=== PATIENT | female | born 1945 | race Two or more races ===

== ENCOUNTER 2020-10-12 13:27 | Outpatient (REF) | payer MEDICARE, SELFPAY ==
[2020-10-12 14:34] LABS: Alanine Aminotransferase 16 U/L (0-31); Albumin Level 4.4 g/dL (3.5-5.0); Alkaline Phosphatase 89 U/L (39-117); Anion Gap 14 (12-20); Aspartate Amino Transferase 15 U/L (5-31); Blood Urea Nitrogen 27 mg/dL (9-16); Calcium 9.3 mg/dL (8.4-10.2); Carbon Dioxide 23 mmol/L (22-29); Chloride 106 mmol/L (96-108); Cholesterol 172 mg/dL; Estimated Glomerular Filt Rate 19; Glucose Fasting 95 mg/dL (60-99); HDL Cholesterol 51 mg/dL; LDL Cholesterol Calculated 92 mg/dl; Potassium 5.4 mmol/L (3.3-5.1); Sodium 138 mmol/L (135-145); Total Protein 7.1 g/dL (6.5-8.0); Triglycerides 146 mg/dL
[2020-10-12 14:43] LABS: Bilirubin Total 0.2 mg/dL (0.0-1.0)
[2020-10-12 19:40] LABS: Folate 12.8 ng/mL (> or = 4.0); Vitamin B12 191 pg/mL (200-900)
[2020-10-16 13:05] LABS: Vitamin D 25-OH, D2 78 ng/mL; Vitamin D 25-OH, D3 5 ng/mL; Vitamin D 25-OH, Total 83 ng/mL (30-100)
== END 2020-10-12 13:28 | disposition home or self-care (01) ==
LOC: HO.LAB 13:27
PROVIDERS: PCP Internal Medicine; Visit Provider Internal Medicine
DX: R53.82 Chronic fatigue, unspecified (principal); I10 Essential (primary) hypertension; E78.5 Hyperlipidemia, unspecified; E03.9 Hypothyroidism, unspecified; E55.9 Vitamin D deficiency, unspecified
CPT/HCPCS: 36415; 80053; 80061; 82306; 82607; 82746; 84443

== ENCOUNTER 2020-12-10 15:14 | Outpatient (REF) | payer MEDICARE, SELFPAY ==
--- NOTE | ~2020-12-10 | US_ITS ---
EXAMINATION: US RETROPERITONEAL LIMITED (RENAL ONLY) CLINICAL INFORMATION: Chronic kidney disease. COMPARISON: Ultrasound abdomen complete dated 05/14/2015 and 06/11/2014. TECHNIQUE: Real-time imaging of the kidneys. FINDINGS: RIGHT KIDNEY: 9.1 x 4.5 x 4.1 cm (SAG x AP x TRV). The kidney is normal in size, contour, and echogenicity. Renal cortical thickness is normal. No calculi or focal parenchymal lesions. No hydronephrosis. LEFT KIDNEY: 9.3 x 4.5 x 4.2 cm (SAG x AP x TRV). The kidney is normal in size, contour, and echogenicity. Renal cortical thickness is normal. No renal calculi or hydronephrosis. There is an anechoic cyst in the upper pole measuring 1.9 x 1.6 x 1.5 cm. US/US renal BI IMPRESSION: Unremarkable right kidney. Simple cyst upper pole left kidney.
== END 2020-12-10 15:15 | disposition home or self-care (01) ==
LOC: HO.XRAY 15:14
PROVIDERS: Visit Provider Internal Medicine Hypertension Specialist
DX: N17.9 Acute kidney failure, unspecified (principal)
CPT/HCPCS: 76775

== ENCOUNTER 2022-07-05 15:23 | Emergency (ER) | payer OTHER, SELFPAY ==
[2022-07-05] VITALS (7 sets, daily range): BP systolic 129–167; BP diastolic 58–86; PULSE 50–69; RESP 17; TEMP 36.7–37.1; O2SAT 97–100; BMI 28.9
--- NOTE | ~2022-07-05 | US_ITS ---
EXAMINATION: US PELVIS CLINICAL INFORMATION: vag bleeding, post menopausal, r/o malignancy COMPARISON: None available. TECHNIQUE: Ultrasound of the pelvis is performed using both transabdominal and transvaginal transducers along with Doppler. Transvaginal imaging is performed due to inadequate visualization transabdominally. FINDINGS: Uterus: The uterus is anteverted and measures 5.5 x 2.5 x 2.7 cm. The double wall endometrial thickness is 5 mm with a small volume of endometrial fluid.. The uterus is smooth in contour and has normal myometrial echogenicity. No visible fibroid. Adnexa: Ovaries are not identified sonographically. US/US pelvic and transvaginal IMPRESSION: Normal endometrial thickness (5 mm) with trace associated endometrial fluid. No focal lesions are identified on these images. Ovaries are not identified sonographically.
--- NOTE | 2022-07-05 15:51 | ED.GENADULT ---
HPI - General Adult General Stated complaint: pain in hip, no injury Related Data Previous Rx's Medication Instructions Recorded lactulose 10 gram/15 mL oral 10 g (15 mL) PO BEDTIME PRN 06/15/20 solution constipation 30 days #450 mL lidocaine 4 % topical patch 3 patch topical DAILY PRN pain #30 07/06/21 (Aspercreme (lidocaine)) ea melatonin 10 mg capsule 10 mg PO BEDTIME PRN sleep 90 days 12/11/21 #90 caps estradiol 0.01% (0.1 mg/gram) 1 g vaginal QWEEK 90 days #42.5 03/08/22 vaginal cream (Estrace) grams folic acid 1 mg tablet 1 mg PO DAILY 90 days #90 tabs 03/22/22 tobramycin 0.3 % eye drops 1 drp ophthalmic (eye) Q4H 5 days 04/10/22 #5 mL omeprazole 40 mg capsule,delayed 40 mg PO DAILY 90 days #90 caps 04/17/22 release disposable gloves (Biobrane Gloves #100 ea 06/01/22 Medium) incontinence pad, liner, disp #60 ea 06/01/22 (Affirm Pads) levothyroxine 88 mcg tablet 88 mcg PO DAILY #90 tabs 06/01/22 underpads 30 X 36 (Certainty #40 ea 06/01/22 Underpads) wipes #120 ea 06/01/22 atorvastatin 40 mg tablet 40 mg PO BEDTIME 90 days #90 tabs 06/14/22 cholecalciferol (vitamin D3) 50 50 mcg PO DAILY 90 days #90 caps 06/14/22 mcg (2,000 unit) capsule cyanocobalamin (vitamin B-12) 1,000 mcg PO DAILY 90 days #90 tabs 06/14/22 1,000 mcg tablet lisinopril 40 mg tablet 40 mg PO DAILY 90 days #90 tabs 06/14/22 quetiapine 200 mg tablet (Seroquel) 200 mg PO TID 90 days #270 tabs 06/14/22 tramadol 50 mg tablet 50 mg PO BID PRN pain 30 days #60 06/14/22 tabs aspirin 81 mg tablet,delayed 81 mg PO DAILY cad prophylaxis 90 06/29/22 release days #90 tabs escitalopram oxalate 10 mg tablet 10 mg PO DAILY 90 days #90 tabs 07/05/22 Allergies Allergy/AdvReac Type Severity Reaction Status Date / Time No Known Allergies Allergy Verified 03/08/22 17:01 COUNTS INCLUDE 234 BEDS AT THE [facility] Past Medical History Medical History VERA (acute kidney injury) B12 deficiency Chronic fatigue Dyslipidemia CLAYTON (generalized anxiety disorder) GERD (gastroesophageal reflux disease) Hypovitaminosis D Insomnia due to mental condition Long-term use of aspirin therapy Moderate recurrent major depression Osteopenia Urge urinary incontinence Surgical History History of appendectomy History of tubal ligation Family History Family History Father CVD (cardiovascular disease) Mother Chronic mental illness Brother Lung cancer Family/Other FH: mental illness Social History Social History Housing: House Alcohol intake: never Patient Tobacco Use Status: Current everyday Tobacco user Tobacco use type: Cigarette Cigarettes Per Day: 5 e-Cigarette/Vaping Use: Never Used Second Hand Smoke Exposure: No service: No Current occupational status: disabled Cognitive needs: Yes Hearing needs: No Vision needs: Yes Course Course Course Narrative: This is a rapid medical exam. Deferred additional HPI, ROS, PE to primary provider. 77 yo female with history of CKD, HTN, GERD, HLD, depression, anxiety here with vaginal bleeding, abdominal bloating/distention, feeling fatigued, short of breath with movement. NO AC therapy use. On ASA only. Will check labs, EKG, orthos. VSS Discharge Plan Discharge Prescriptions: No Action melatonin 10 mg capsule 10 mg PO BEDTIME PRN (Reason: sleep) 90 Days Qty: 90 1RF folic acid 1 mg tablet 1 mg PO DAILY 90 Days Qty: 90 1RF tobramycin 0.3 % drops 1 drp ophthalmic (eye) Q4H 5 Days Qty: 5 0RF omeprazole 40 mg capsule,delayed release(DR/EC) 40 mg PO DAILY 90 Days Qty: 90 0RF levothyroxine 88 mcg tablet 88 mcg PO DAILY Qty: 90 0RF (DME) wipes See Rx Instructions .Route .MEDSUPPLY Qty: 120 11RF Rx Instructions: As directed (DME) underpads [Certainty Underpads] 30 X 36 pad See Rx Instructions .ROUTE .MEDSUPPLY Qty: 40 11RF Rx Instructions: As directed (DME) Affirm Pads Pad See Rx Instructions .ROUTE .MEDSUPPLY Qty: 60 11RF Rx Instructions: As directed (DME) disposable gloves [Biobrane Gloves Medium] Misc See Rx Instructions .ROUTE .MEDSUPPLY Qty: 100 11RF Rx Instructions: As directed atorvastatin 40 mg tablet 40 mg PO BEDTIME 90 Days Qty: 90 0RF cholecalciferol (vitamin D3) 50 mcg (2,000 unit) capsule 50 mcg PO DAILY 90 Days Qty: 90 1RF cyanocobalamin (vitamin B-12) 1,000 mcg tablet 1,000 mcg PO DAILY 90 Days Qty: 90 1RF lisinopril 40 mg tablet 40 mg PO DAILY 90 Days Qty: 90 3RF quetiapine [Seroquel] 200 mg tablet 200 mg PO TID 90 Days Qty: 270 3RF tramadol 50 mg tablet 50 mg PO BID PRN (Reason: pain) 30 Days Qty: 60 0RF aspirin 81 mg tablet,delayed release (DR/EC) 81 mg PO DAILY 90 Days Qty: 90 3RF escitalopram oxalate 10 mg tablet 10 mg PO DAILY 90 Days Qty: 90 0RF lactulose 10 gram/15 mL solution 10 g PO BEDTIME PRN (Reason: constipation) 30 Days Qty: 450 6RF estradiol [Estrace] 0.01 % (0.1 mg/gram) cream 1 g vaginal QWEEK 90 Days Qty: 42.5 1RF lidocaine [Aspercreme (lidocaine)] 4 % adhesive patch,medicated 3 patch topical DAILY PRN (Reason: pain) Qty: 30 3RF
--- NOTE | 2022-07-05 15:54 | ECG_ITS ---
Test Reason : weakness Blood Pressure : / mmHG Vent. Rate : 052 BPM Atrial Rate : 052 BPM P-R Int : 204 ms QRS Dur : 092 ms QT Int : 432 ms P-R-T Axes : 042 031 038 degrees QTc Int : 401 ms Sinus bradycardia Otherwise normal ECG When compared with ECG of 10-OCT-2011 14:49, No significant change was found Referred By: Mery Quezdaa Electronically Signed By:ALANA CONNOLLY
[2022-07-05 16:16] LABS: MANUAL DIFF FLAG NO
[2022-07-05 16:20] LABS: Basophils Absolute Auto 0.1 X10*3/uL (0.0-0.2); Eosinophils Absolute Auto 0.2 X10*3/uL (0.0-0.4); Eosinophils Percent Auto 3.4 % (0-4); Hematocrit 32.3 % (37.0-47.0); Hemoglobin 10.2 g/dl (12.0-16.0); Imm Gran Abs Auto 0.03 X10*3/uL (0.00-0.03); Imm Gran Pct Auto 0.5 % (0.0-0.4); Lymphocytes Absolute Auto 1.8 X10*3/uL (1.2-4.9); Lymphocytes Percent Auto 30.2 % (20-40); Mean Corpuscular HGB Conc 31.6 g/dl (31.0-35.0); Mean Corpuscular Hemoglobin 29.8 pg (27.0-33.0); Mean Corpuscular Volume 94.4 fL (80.0-98.0); Mean Platelet Volume 9.4 fL (9.4-12.3); Monocytes Absolute Auto 0.4 X10*3/uL (0.1-1.2); Monocytes Percent Auto 7.2 % (2-11); Neutrophils Absolute Auto 3.3 x10*3/uL (2.0-8.3); Neutrophils Percent Auto 57.7 % (45-73); Platelet Count 235 X10*3/uL (160-400); Red Blood Count 3.42 X10*6/uL (4.20-5.50); Red Cell Distribution Width 14.4 % (11.0-16.0); White Blood Count 5.8 X10*3/uL (4.8-10.8)
[2022-07-05 16:26] LABS: INTERNATIONAL NORM RATIO 0.9 (0.9-1.1); Prothrombin Time 10.5 SEC (10.0-13.1)
[2022-07-05 16:42] LABS: Alanine Aminotransferase 21 U/L (0-31); Albumin Level 4.3 g/dL (3.5-5.0); Alkaline Phosphatase 80 U/L (39-117); Anion Gap 13 (12-20); Aspartate Amino Transferase 25 U/L (5-31); Bilirubin Direct 0.1 mg/dL (0.0-0.5); Bilirubin Total 0.4 mg/dL (0.0-1.0); Blood Urea Nitrogen 16 mg/dL (9-16); Calcium 9.2 mg/dL (8.4-10.2); Carbon Dioxide 23 mmol/L (22-29); Chloride 109 mmol/L (96-108); Creatinine Clr Calc Pharmacy 29.3; Estimated Glomerular Filt Rate 34; Glucose Random 116 mg/dL (60-115); Potassium 5.2 mmol/L (3.3-5.1); Sodium 140 mmol/L (135-145); Total Protein 6.9 g/dL (6.5-8.0)
--- NOTE | 2022-07-05 19:35 | ED_ITS ---
HPI - Female Genitourinary General Chief complaint: Vaginal Bleeding Stated complaint: pain in hip, no injury Time Seen by Provider: 07/05/22 17:56 History of Present Illness HPI Narrative: Patient is a 77-year-old female present today with having episodes of vaginal bleeding. Can notice 2 episodes of bleeding. Both times causing just spotting. Patient denies any focal weakness. Has been noticing black stool as well. However patient has been taking for her stomach. She is not taking any NSAIDs. She is not on blood thinners. There is no abdominal pain. No fever no chills. No chest pain or shortness of breath. Patient is not an alcohol drinker. Related Data Previous Rx's Medication Instructions Recorded lactulose 10 gram/15 mL oral 10 g (15 mL) PO BEDTIME PRN 06/15/20 solution constipation 30 days #450 mL lidocaine 4 % topical patch 3 patch topical DAILY PRN pain #30 07/06/21 (Aspercreme (lidocaine)) ea melatonin 10 mg capsule 10 mg PO BEDTIME PRN sleep 90 days 12/11/21 #90 caps estradiol 0.01% (0.1 mg/gram) 1 g vaginal QWEEK 90 days #42.5 03/08/22 vaginal cream (Estrace) grams folic acid 1 mg tablet 1 mg PO DAILY 90 days #90 tabs 03/22/22 tobramycin 0.3 % eye drops 1 drp ophthalmic (eye) Q4H 5 days 04/10/22 #5 mL omeprazole 40 mg capsule,delayed 40 mg PO DAILY 90 days #90 caps 04/17/22 release disposable gloves (Biobrane Gloves #100 ea 06/01/22 Medium) incontinence pad, liner, disp #60 ea 06/01/22 (Affirm Pads) levothyroxine 88 mcg tablet 88 mcg PO DAILY #90 tabs 06/01/22 underpads 30 X 36 (Certainty #40 ea 06/01/22 Underpads) wipes #120 ea 06/01/22 atorvastatin 40 mg tablet 40 mg PO BEDTIME 90 days #90 tabs 06/14/22 cholecalciferol (vitamin D3) 50 50 mcg PO DAILY 90 days #90 caps 06/14/22 mcg (2,000 unit) capsule cyanocobalamin (vitamin B-12) 1,000 mcg PO DAILY 90 days #90 tabs 06/14/22 1,000 mcg tablet lisinopril 40 mg tablet 40 mg PO DAILY 90 days #90 tabs 06/14/22 quetiapine 200 mg tablet (Seroquel) 200 mg PO TID 90 days #270 tabs 06/14/22 tramadol 50 mg tablet 50 mg PO BID PRN pain 30 days #60 06/14/22 tabs aspirin 81 mg tablet,delayed 81 mg PO DAILY cad prophylaxis 90 06/29/22 release days #90 tabs escitalopram oxalate 10 mg tablet 10 mg PO DAILY 90 days #90 tabs 07/05/22 Allergies Allergy/AdvReac Type Severity Reaction Status Date / Time No Known Allergies Allergy Verified 07/05/22 15:56 Review of Systems 2 Review of Systems: Positive vaginal bleeding Yes all other systems are reviewed and are negative PMFSH Past Medical History Attestation statement: The following information was validated with the patient. Medical History VERA (acute kidney injury) B12 deficiency Chronic fatigue Dyslipidemia CLAYTON (generalized anxiety disorder) GERD (gastroesophageal reflux disease) Hypovitaminosis D Insomnia due to mental condition Long-term use of aspirin therapy Moderate recurrent major depression Osteopenia Urge urinary incontinence Surgical History History of appendectomy History of tubal ligation Family History Family History Father CVD (cardiovascular disease) Mother Chronic mental illness Brother Lung cancer Family/Other FH: mental illness Social History Social History Housing: House Alcohol intake: never Patient Tobacco Use Status: Current everyday Tobacco user Tobacco use type: Cigarette Cigarettes Per Day: 5 e-Cigarette/Vaping Use: Never Used Second Hand Smoke Exposure: No Advance Directives: No Advance Directives Information Provided: Yes service: No Current occupational status: disabled Cognitive needs: Yes Hearing needs: No Vision needs: Yes Physical Exam Vital Signs: Vital Signs: Last Vital Signs Temp 98.7 F 07/05/22 18:58 Pulse 66 07/05/22 19:32 Resp 17 07/05/22 18:58 BP 134/80 07/05/22 19:32 Pulse Ox 97 07/05/22 18:58 O2 Del Method Room Air 07/05/22 18:58 BMI result Body Mass Index 28.9 Appearance: Alert. Oriented X3. No acute distress. Eyes: Pupils equal, round and reactive to light. ENT: Pharynx normal. Neck: Normal inspection. Neck supple. No lymph nodes noted. No crepitus CVS: Normal heart rate and rhythm. Pulses normal. Normal S1 and S2 Respiratory: No respiratory distress. Breath sounds normal. No Wheezing. No rales Abdomen: Soft and nontender. No rigidity. No distention. good BS x4 Skin: Skin warm and dry. Normal skin color. Normal skin turgor. Pelvic exam gross external exam showed no bleeding. Rectal exam done grossly brown stool heme negative. Extremities: No lower extremity edema. Neurovascular intact to all extremities. No Lacerations. No Rash Neuro: Oriented X 3. No motor deficit. No sensory deficit. Moving all extermities. No slurred speech Medical Decision Making Medical Decision Making MDM Narrative: Patient well-appearing. No acute distress. Only minimal spotting x2. There is no soaking pads. Patient's hemoglobin however dropped from 12 to 10. SHe is well appearing. Case discussed with Dr. Leonard Flores from OBGYN. Will closely follow on an outpatient basis. Patient has black stool most likely caused by Pepto-Bismol. She is in no distress. Patient's stool is heme-negative. It was brown on rectal exam. Unlikely to have GI bleed. Patient made aware the urgent need to follow-up. Risk of malignancy exists. She states understanding with the police [employer] program coordinator present. Differential Diagnosis Differential Diagnoses: The differential diagnosis associated with the presentation includes GI bleed, urinary tract infection, vaginal bleeding, malignancy Admission/Observation Consideration of admission/observation: Escalation of care including admission/observation considered Consult Healthcare Provider Management of the patient was discussed with: [facility] Lab Data 07/05/22 16:11 07/05/22 16:11 Labs: Lab Results 07/05/22 07/05/22 07/05/22 Range/Units 16:11 16:11 16:11 WBC 5.8 (4.8-10.8) X10*3/uL RBC 3.42 L (4.20-5.50) X10*6/uL Hgb 10.2 L (12.0-16.0) g/dl Hct 32.3 L (37.0-47.0) % MCV 94.4 (80.0-98.0) fL MCH 29.8 (27.0-33.0) pg MCHC 31.6 (31.0-35.0) g/dl RDW 14.4 (11.0-16.0) % Plt Count 235 (160-400) X10*3/uL MPV 9.4 (9.4-12.3) fL Immature Gran % (Auto) 0.5 H (0.0-0.4) % Neut % (Auto) 57.7 (45-73) % Lymph % (Auto) 30.2 (20-40) % Glades % (Auto) 7.2 (2-11) % Eos % (Auto) 3.4 (0-4) % Baso % (Auto) 1.0 (0-2) % Lymph # (Auto) 1.8 (1.2-4.9) X10*3/uL Glades # (Auto) 0.4 (0.1-1.2) X10*3/uL Eos # (Auto) 0.2 (0.0-0.4) X10*3/uL Baso # (Auto) 0.1 (0.0-0.2) X10*3/uL Abs Immat Gran (auto) 0.03 (0.00-0.03) X10*3/uL Absolute Neuts (auto) 3.3 (2.0-8.3) x10*3/uL Absolute Nucleated RBC 0.000 (0.0-0.012) X10*3/uL Nucleated RBC % (auto) 0.0 (0.0-0.2) /100WBC PT 10.5 (10.0-13.1) SEC INR 0.9 (0.9-1.1) Sodium 140 (135-145) mmol/L Potassium 5.2 H (3.3-5.1) mmol/L Chloride 109 H (96-108) mmol/L Carbon Dioxide 23 (22-29) mmol/L Anion Gap 13 (12-20) BUN 16 (9-16) mg/dL Creatinine 1.51 H (0.5-1.4) mg/dL Estim Creat Clear Calc 29.3 Estimated GFR 34 Random Glucose 116 H (60-115) mg/dL Calcium 9.2 (8.4-10.2) mg/dL Total Bilirubin 0.4 (0.0-1.0) mg/dL Direct Bilirubin 0.1 (0.0-0.5) mg/dL AST 25 (5-31) U/L ALT 21 (0-31) U/L Alkaline Phosphatase 80 (39-117) U/L Total Protein 6.9 (6.5-8.0) g/dL Albumin 4.3 (3.5-5.0) g/dL Stool Occult Blood (NEGATIVE) 07/05/22 Range/Units 19:35 WBC (4.8-10.8) X10*3/uL RBC (4.20-5.50) X10*6/uL Hgb (12.0-16.0) g/dl Hct (37.0-47.0) % MCV (80.0-98.0) fL MCH (27.0-33.0) pg MCHC (31.0-35.0) g/dl RDW (11.0-16.0) % Plt Count (160-400) X10*3/uL MPV (9.4-12.3) fL Immature Gran % (Auto) (0.0-0.4) % Neut % (Auto) (45-73) % Lymph % (Auto) (20-40) % Glades % (Auto) (2-11) % Eos % (Auto) (0-4) % Baso % (Auto) (0-2) % Lymph # (Auto) (1.2-4.9) X10*3/uL Glades # (Auto) (0.1-1.2) X10*3/uL Eos # (Auto) (0.0-0.4) X10*3/uL Baso # (Auto) (0.0-0.2) X10*3/uL Abs Immat Gran (auto) (0.00-0.03) X10*3/uL Absolute Neuts (auto) (2.0-8.3) x10*3/uL Absolute Nucleated RBC (0.0-0.012) X10*3/uL Nucleated RBC % (auto) (0.0-0.2) /100WBC PT (10.0-13.1) SEC INR (0.9-1.1) Sodium (135-145) mmol/L Potassium (3.3-5.1) mmol/L Chloride (96-108) mmol/L Carbon Dioxide (22-29) mmol/L Anion Gap (12-20) BUN (9-16) mg/dL Creatinine (0.5-1.4) mg/dL Estim Creat Clear Calc Estimated GFR Random Glucose (60-115) mg/dL Calcium (8.4-10.2) mg/dL Total Bilirubin (0.0-1.0) mg/dL Direct Bilirubin (0.0-0.5) mg/dL AST (5-31) U/L ALT (0-31) U/L Alkaline Phosphatase (39-117) U/L Total Protein (6.5-8.0) g/dL Albumin (3.5-5.0) g/dL Stool Occult Blood NEGATIVE (NEGATIVE) Independent Interpretation I performed an independent interpretation of an: EKG Interpretation: Patient's EKG showed a sinus pattern heart rate is 50 GA QRS QT within normal limits there is no acute ST segment elevation noted. Discharge Plan Discharge Clinical Impression: Abnormal vaginal bleeding in postmenopausal patient, Vaginal bleeding Patient Disposition: Home, Self-Care Instructions: Endometrial Biopsy (DC) Prescriptions: No Action melatonin 10 mg capsule 10 mg PO BEDTIME PRN (Reason: sleep) 90 Days Qty: 90 1RF folic acid 1 mg tablet 1 mg PO DAILY 90 Days Qty: 90 1RF tobramycin 0.3 % drops 1 drp ophthalmic (eye) Q4H 5 Days Qty: 5 0RF omeprazole 40 mg capsule,delayed release(DR/EC) 40 mg PO DAILY 90 Days Qty: 90 0RF levothyroxine 88 mcg tablet 88 mcg PO DAILY Qty: 90 0RF (DME) wipes See Rx Instructions .Route .MEDSUPPLY Qty: 120 11RF Rx Instructions: As directed (DME) underpads [Certainty Underpads] 30 X 36 pad See Rx Instructions .ROUTE .MEDSUPPLY Qty: 40 11RF Rx Instructions: As directed (DME) Affirm Pads Pad See Rx Instructions .ROUTE .MEDSUPPLY Qty: 60 11RF Rx Instructions: As directed (DME) disposable gloves [Biobrane Gloves Medium] Misc See Rx Instructions .ROUTE .MEDSUPPLY Qty: 100 11RF Rx Instructions: As directed atorvastatin 40 mg tablet 40 mg PO BEDTIME 90 Days Qty: 90 0RF cholecalciferol (vitamin D3) 50 mcg (2,000 unit) capsule 50 mcg PO DAILY 90 Days Qty: 90 1RF cyanocobalamin (vitamin B-12) 1,000 mcg tablet 1,000 mcg PO DAILY 90 Days Qty: 90 1RF lisinopril 40 mg tablet 40 mg PO DAILY 90 Days Qty: 90 3RF quetiapine [Seroquel] 200 mg tablet 200 mg PO TID 90 Days Qty: 270 3RF tramadol 50 mg tablet 50 mg PO BID PRN (Reason: pain) 30 Days Qty: 60 0RF aspirin 81 mg tablet,delayed release (DR/EC) 81 mg PO DAILY 90 Days Qty: 90 3RF escitalopram oxalate 10 mg tablet 10 mg PO DAILY 90 Days Qty: 90 0RF lactulose 10 gram/15 mL solution 10 g PO BEDTIME PRN (Reason: constipation) 30 Days Qty: 450 6RF estradiol [Estrace] 0.01 % (0.1 mg/gram) cream 1 g vaginal QWEEK 90 Days Qty: 42.5 1RF lidocaine [Aspercreme (lidocaine)] 4 % adhesive patch,medicated 3 patch topical DAILY PRN (Reason: pain) Qty: 30 3RF Referrals: Balwinder Valle MD [Physician] - 07/07/22 Print Language: Albanian
[2022-07-05 19:44] LABS: OBS Int Ctl Valid YES; OBS1 NEGATIVE (NEGATIVE)
--- NOTE | 2022-07-05 19:44 | PC.NURSE ---
I took over care of the pt at 1900. Pt is A&Ox4, GCS 15, yakut speaking only. With MD at bedside, stool sample was obtained. Orthostatic vital signs were obtained. Pt started to get dressed and it was explained that they need to wait for results and discharge paperwork. When we went back to the room, pt and brother were gone. Registration confirmed that the pt eloped. I will attempt to call the pt with information regarding followup appointments. MD and Charge nurse aware.
--- NOTE | 2022-07-05 20:12 | P.CONOB_ITS ---
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 No other associated symptoms. cc:: CC: OB PMF Past Medical History Medical History VERA (acute kidney injury) B12 deficiency Chronic fatigue Dyslipidemia CLAYTON (generalized anxiety disorder) GERD (gastroesophageal reflux disease) Hypovitaminosis D Insomnia due to mental condition Long-term use of aspirin therapy Moderate recurrent major depression Osteopenia Urge urinary incontinence Family History Family History Father CVD (cardiovascular disease) Mother Chronic mental illness Brother Lung cancer Family/Other FH: mental illness Surgical History Surgical History History of appendectomy History of tubal ligation Social History Social History Housing: House Alcohol intake: never Patient Tobacco Use Status: Current everyday Tobacco user Tobacco use type: Cigarette Cigarettes Per Day: 5 e-Cigarette/Vaping Use: Never Used Second Hand Smoke Exposure: No Advance Directives: No Advance Directives Information Provided: Yes service: No Current occupational status: disabled Cognitive needs: Yes Hearing needs: No Vision needs: Yes Meds Allergies Allergy/AdvReac Type Severity Reaction Status Date / Time No Known Allergies Allergy Verified 07/05/22 15:56 [employer] SUPER[employer]OR Physical Exam Vitals Vital signs: Temp Pulse Resp BP Pulse Ox O2 Del Method 98.7 F 66 17 134/80 97 Room Air 07/05/22 18:58 07/05/22 19:32 07/05/22 18:58 07/05/22 19:32 07/05/22 18:58 07/05/22 18:58 BMI result Body Mass Index 28.9 Additional Comments: Reported by Dr. Grimaldo as the following: no evidence of active vaginal bleeding, abdomen soft nontender [employer]ION SUPER[employer]OR - Results Labs 07/05/22 16:11 07/05/22 16:11 Labs: Short CBC 07/05/22 Range/Units 16:11 WBC 5.8 (4.8-10.8) X10*3/uL Hgb 10.2 L (12.0-16.0) g/dl Hct 32.3 L (37.0-47.0) % Plt Count 235 (160-400) X10*3/uL BMP 07/05/22 16:11 Sodium 140 Potassium 5.2 H Chloride 109 H Carbon Dioxide 23 BUN 16 Creatinine 1.51 H Calcium 9.2 Liver Function 07/05/22 Range/Units 16:11 Total Bilirubin 0.4 (0.0-1.0) mg/dL Direct Bilirubin 0.1 (0.0-0.5) mg/dL AST 25 (5-31) U/L ALT 21 (0-31) U/L Alkaline Phosphatase 80 (39-117) U/L Albumin 4.3 (3.5-5.0) g/dL Imaging US - abdomen: Radiologist's impression: ITS Impressions Pelvic/Transvag US 07/05/22 18:05 IMPRESSION: Normal endometrial thickness (5 mm) with trace associated endometrial fluid. No focal lesions are identified on these images. Ovaries are not identified sonographically. Assessment and Plan (1) Post-menopausal bleeding: Status: Acute Plan Recommended to Dr. GRIMALDO the following: Differential diagnosis of postmenopausal bleeding include endometrial pathology including but not limited to endometrial hyperplasia and/or malignancy or polyps. Instructions to be given the patient to come back to emergency room in case of heavy vaginal bleeding and follow-up in the office within few days for evaluation endometrial biopsy to rule out endometrial pathology. Spent a total of 20 minutes reviewing the chart, communicating with the emergency room provider and documenting the medical record Time Spent With Patient Time: Total time managing care of this patient today ____ minutes.
== END 2022-07-05 20:21 | disposition home or self-care (01) ==
PROVIDERS: Nurse Practitioner Family; Emergency Provider Emergency Medicine Emergency Medical Services; PCP Internal Medicine
DX: N95.0 Postmenopausal bleeding (principal); R00.0 Tachycardia, unspecified; N93.8 Other specified abnormal uterine and vaginal bleeding; R10.2 Pelvic and perineal pain; Z79.899 Other long term (current) drug therapy
CPT/HCPCS: 36415; 76830; 76856; 80048; 80076; 82272; 85025; 85610; 93005; 99284

== ENCOUNTER 2022-07-11 12:28 | Outpatient (REF) | payer OTHER, SELFPAY ==
[2022-07-11 14:15] LABS: Alanine Aminotransferase 18 U/L (0-31); Alkaline Phosphatase 83 U/L (39-117); Anion Gap 12 (12-20); Aspartate Amino Transferase 20 U/L (5-31); Bilirubin Total 0.5 mg/dL (0.0-1.0); Blood Urea Nitrogen 16 mg/dL (9-16); Calcium 8.9 mg/dL (8.4-10.2); Carbon Dioxide 22 mmol/L (22-29); Chloride 109 mmol/L (96-108); Cholesterol 151 mg/dL; Estimated Glomerular Filt Rate 34; Glucose Random 102 mg/dL (60-115); HDL Cholesterol 42 mg/dL; LDL Cholesterol Calculated 74 mg/dl; Potassium 4.4 mmol/L (3.3-5.1); Sodium 139 mmol/L (135-145); Total Protein 6.5 g/dL (6.5-8.0); Triglycerides 179 mg/dL
[2022-07-11 14:48] LABS: Folate 17.9 ng/mL (> or = 4.0); Thyroid Stimulating Hormone 5.08 uIU/mL (0.32-4.0); Vitamin B12 > 2000 pg/mL (200-900); Vitamin D 25-OH Total 50.9 ng/mL (>30)
[2022-07-11 19:03] LABS: Appearance Urine Clear; Color Urine Yellow; Glucose Urine UA Negative (Negative); Leukocyte Esterase Urine Small (1+) (Negative); Nitrite Urine Negative (Negative); PH 5.5 (5.0-9.0); UMIC TRIGGER UACC YES; Urine Blood Negative (Negative); Urine Ketones Negative (Negative); Urine Protein Negative (Neg-Trace)
[2022-07-11 19:08] LABS: Bacteria Urine None Seen (None Seen); Hyaline Casts Urine 0-2 /LPF (0-2); RBC Urine 0-2 /HPF (0-2); UACC Culture Trigger YES
== END 2022-07-11 12:29 | disposition home or self-care (01) ==
LOC: HO.LAB 12:28
PROVIDERS: PCP Internal Medicine; Visit Provider Internal Medicine
DX: E55.9 Vitamin D deficiency, unspecified (principal); K21.9 Gastro-esophageal reflux disease without esophagitis; E03.9 Hypothyroidism, unspecified; E53.8 Deficiency of other specified B group vitamins; E78.5 Hyperlipidemia, unspecified; R82.90 Unspecified abnormal findings in urine
CPT/HCPCS: 36415; 80053; 80061; 81001; 81003; 82306; 82607; 82746; 84443; 87086

== ENCOUNTER 2022-07-12 15:26 | Outpatient (REF) | payer OTHER, SELFPAY ==
[2022-07-15 07:23] LABS: HPV mRNA E6/E7 rflx Not Detected (Not Detected)
== END 2022-07-12 15:27 | disposition home or self-care (01) ==
LOC: HO.LNP 15:26
PROVIDERS: PCP Internal Medicine; Visit Provider Obstetrics & Gynecology
DX: Z12.4 Encounter for screening for malignant neoplasm of cervix (principal); Z11.51 Encounter for screening for human papillomavirus (HPV); N95.0 Postmenopausal bleeding; N90.4 Leukoplakia of vulva
CPT/HCPCS: 87624; 88142; 99212

== ENCOUNTER → 2022-07-18 14:30 | Outpatient (BNVA) | payer OTHER, SELFPAY | PROVIDERS: PCP Internal Medicine; Visit Provider Obstetrics & Gynecology | DX: N95.0 Postmenopausal bleeding (principal); N90.4 Leukoplakia of vulva | CPT/HCPCS: 58100; 99212 ==

== ENCOUNTER 2022-08-18 11:56 | Day surgery (SDC) | payer OTHER, SELFPAY ==
[2022-08-02 15:39] VITALS: BMI 30.4
--- NOTE | 2022-08-03 09:11 | HO.ANESPROP2 ---
Documented by User: Anita Aj NP 08/09/22 15:13 HPI - Anesthesia Eval Consult details Narrative: 77yo F for D&C Hysteroscopy,poss myomectomy,poss polypectomy, 08/18/22 PMF Active Problems Active Problems: All Active Problems (Updated 07/12/22 @ 15:45 by Balwinder Valle MD) Vulvar leukoplakia (Acute) Post-menopausal bleeding (Acute) Shoulder pain (Acute) Back pain (Acute) Hypovitaminosis D (Acute) B12 deficiency (Acute) Insomnia due to mental condition (Acute) CLAYTON (generalized anxiety disorder) (Acute) Moderate recurrent major depression (Acute) Dyslipidemia (Acute) GERD (gastroesophageal reflux disease) (Acute) VERA (acute kidney injury) (Acute) Urge urinary incontinence (Acute) Chronic fatigue (Acute) Hypothyroid (Acute) Overweight (Acute) Lumbar degenerative disc disease (Acute) Depression with anxiety (Acute) High cholesterol (Acute) HTN (hypertension), benign (Acute) GERD (gastroesophageal reflux disease) (Acute) Colon cancer screening (Acute) Osteopenia (Acute) Long-term use of aspirin therapy (Acute) Past Medical History Medical History VERA (acute kidney injury) B12 deficiency Chronic fatigue Dyslipidemia CLAYTON (generalized anxiety disorder) GERD (gastroesophageal reflux disease) Hypovitaminosis D Insomnia due to mental condition Long-term use of aspirin therapy Moderate recurrent major depression Osteopenia Urge urinary incontinence Family History Family History Father CVD (cardiovascular disease) Mother Chronic mental illness Brother Lung cancer Family/Other FH: mental illness Surgical History Surgical History History of appendectomy History of tubal ligation Social History Social History Housing: House Alcohol intake: never Patient Tobacco Use Status: Current everyday Tobacco user Tobacco use type: Cigarette Cigarettes Per Day: 1 Years Smoked: 55 e-Cigarette/Vaping Use: Never Used Second Hand Smoke Exposure: No Use of substances other than those prescribed or required for medical reasons: No Are you DNR?: No Advance Directives: No Advance Directives Information Provided: Yes service: No Current occupational status: disabled Cognitive needs: Yes Hearing needs: No Vision needs: Yes Meds Allergies Allergy/AdvReac Type Severity Reaction Status Date / Time No Known Allergies Allergy Verified 08/03/22 16:56 Exam Exam Date and Time: August 03, 2022 0911 Height,Weight and Vital Signs: Height 5 ft 2 in Weight 75.296 kg Pertinent Lab Results Pertinent Lab Results: Laboratory Tests 07/05/22 07/11/22 16:11 12:47 WBC 5.8 Hgb 10.2 L Hct 32.3 L Plt Count 235 Sodium 139 Potassium 4.4 Chloride 109 H Carbon Dioxide 22 BUN 16 Creatinine 1.48 H Assessment and Plan Assessment Anesthesia Assessment: Chart Reviewed Documented by User: Candis Molina MD 08/18/22 12:45 PMFSH Past Medical History Medical History VERA (acute kidney injury) B12 deficiency Chronic fatigue Dyslipidemia CLAYTON (generalized anxiety disorder) GERD (gastroesophageal reflux disease) Hypovitaminosis D Insomnia due to mental condition Long-term use of aspirin therapy Moderate recurrent major depression Osteopenia Urge urinary incontinence Family History Family History Father CVD (cardiovascular disease) Mother Chronic mental illness Brother Lung cancer Family/Other FH: mental illness Family history of problems with anesthesia: No Surgical History Surgical History History of appendectomy History of tubal ligation History of Problems with Anesthesia: No Social History Social History Housing: House Alcohol intake: never Patient Tobacco Use Status: Current everyday Tobacco user Tobacco use type: Cigarette Cigarettes Per Day: 1 Years Smoked: 55 e-Cigarette/Vaping Use: Never Used Second Hand Smoke Exposure: No Use of substances other than those prescribed or required for medical reasons: No Are you DNR?: No Advance Directives: No Advance Directives Information Provided: Yes service: No Current occupational status: disabled Cognitive needs: Yes Hearing needs: No Vision needs: Yes Meds Allergies Allergy/AdvReac Type Severity Reaction Status Date / Time No Known Allergies Allergy Verified 08/03/22 16:56 Exam Airway Mallampati Class: III TM Dist: >3cm Neck ROM: Full Assessment and Plan Assessment Anesthesia Assessment: Anesthesia Plan Discussed Final Anesthetic Review Family History of Problems with Anesthesia: No History of Problems with Anesthesia: No NPO: Yes ASA Class: II Final Preanesthetic Review: No Changes in Pt Med Stat, Meds/Allgs Chart Reviewed, Consent Obtained/Reviewed and Anes Risks/Benef Reviewed Patient Risk: Low Procedure Risk: Low Anesthetic Plan Anesthetic Plan: GA Disposition: Standard PACU
[2022-08-15 17:58] VITALS: BMI 29.8
[2022-08-18 12:40] VITALS: BP 116/67; PULSE 64; RESP 16; TEMP 36.7; O2SAT 98
--- NOTE | 2022-08-18 12:49 | MHC.SHP ---
Pre-Procedural Eval Section A Date of Service: 08/18/22 The patient is an INPATIENT: No Changes since office visit: No Cold of Flu in the past 2 weeks, No New Medical Problems, No Changes in Medication and No Patient answered all questions The History & Physical has been completed within 30 days and I have reviewed it.: Yes Section B Chief Complaint: Postmenopausal bleeding Allergies: Allergies Allergy/AdvReac Type Severity Reaction Status Date / Time No Known Allergies Allergy Verified 08/03/22 16:56 Plan Diagnosis/Plan: Unchanged I have reviewed the history and physical and performed a pertinent physical examination on my patient. No changes have occurred unless specified. Time Spent With Patient Time: Total time managing care of this patient today ____ minutes.
[2022-08-18] MEDS: Lactated Ringers 1,000 ML 100 ML IVCONT (12:56)
--- NOTE | 2022-08-18 13:43 | PM.OP ---
Brief Operative Note Date of Service: 08/18/22 Pre-op diagnosis: Postmenopausal bleeding Post-op diagnosis: same (endometrial polyp) Procedure: Hysteroscopy D&C, Polypectomy Surgeon: Balwinder aVlle MD Anesthesia: GLMA Was an Heater Operator used for this Procedure?: No Estimated blood loss (mL): 0 Pathology: other (Endometrial Scrapping. Polyp) Condition: stable Disposition: PACU
--- NOTE | 2022-08-18 13:44 | P.OP_ITS ---
Operative Note Operative Note Date of Service: 08/18/22 Narrative: Preop Diagnosis: PostManopausal Bleeidng Operation: Diagnostic Hysteroscopy, Dilataion & Curettage and polypectomy Post Op Diagnosis: Endometrial Polyp QBL: Minimal Anesthesia: GLMA Surgeon: Balwinder Valle MD Chemical Engraver: None Complication: None Pathology: Endometrial Scrapings, Endometrial polyp Procedure: The patient was put in the dorsal lithotomy position, scrubbed, and draped in the usual manner. A sterile speculum was inserted in the patient's vagina. The anterior lip of the cervix was grasped with a single tooth tenaculum. The cervix was dilated up to 5 mm, then the scope was inserted in the patient's uterus. Inspection revealed endometrial polyp. The Myosure Reach device was used; it was introduced through the operative channel and polypectomy done with no complications. The scope was then taken out from the uterine cavity, sharp curettings was carried on with minimal to moderate amount of tissues retrieved. At the end of the procedure, all instruments were taken out of the patient uterine and vaginal cavity. The single tooth tenaculum was removed and homeostasis was assured using pressure,. The patient tolerated the procedure well and was transferred to the PACU in a stable condition.
[2022-08-18 13:52] VITALS: BP 118/69; PULSE 65; RESP 16; TEMP 36.3; O2SAT 100
[2022-08-18 13:57] VITALS: BP 135/70; PULSE 64; RESP 16; O2SAT 96
[2022-08-18 14:02] VITALS: BP 126/64; PULSE 64; RESP 16; O2SAT 99
[2022-08-18 14:07] VITALS: BP 118/74; PULSE 66; RESP 16; O2SAT 99
[2022-08-18 14:18] VITALS: BP 129/76; PULSE 69; RESP 20; TEMP 36.2; O2SAT 99
[2022-08-18] MEDS: Ondansetron ODT 4 MG TAB.RAPDIS TRANSLINGU (15:12)
== END 2022-08-18 15:22 | disposition home or self-care (01) ==
PROVIDERS: PCP Internal Medicine; Visit Provider Obstetrics & Gynecology
PROC: 0UDB8ZZ Extraction of Endometrium, Via Natural or Artificial Opening Endoscopic (ICD-10-PCS; CPT 58558; principal; 2022-08-18 14:00)
DX: N95.0 Postmenopausal bleeding (principal); N84.0 Polyp of corpus uteri; N17.9 Acute kidney failure, unspecified; N39.41 Urge incontinence; E53.8 Deficiency of other specified B group vitamins; R53.82 Chronic fatigue, unspecified; E78.5 Hyperlipidemia, unspecified; K21.9 Gastro-esophageal reflux disease without esophagitis; E55.9 Vitamin D deficiency, unspecified; F51.05 Insomnia due to other mental disorder; F33.1 Major depressive disorder, recurrent, moderate; F41.1 Generalized anxiety disorder; M85.80 Other specified disorders of bone density and structure, unspecified site; Z79.82 Long term (current) use of aspirin
CPT/HCPCS: 58558; 88305; J1100; J2405; J3010

== ENCOUNTER 2022-09-04 14:06 | Emergency (ER) | payer OTHER, SELFPAY ==
--- NOTE | ~2022-09-04 | XR_ITS ---
EXAMINATION: PORTABLE CHEST 1 VIEW CLINICAL INFORMATION: fever, r/o pna. COMPARISON: No recent prior studies available for comparison.. TECHNIQUE: Portable frontal view of the chest was obtained. FINDINGS: The lungs are well expanded. No focal infiltrate, effusion, edema, or pneumothorax. Cardiac and mediastinal silhouettes are within normal limits for technique. No acute bony abnormality seen with degenerative changes in the spine and shoulders. XR/XR chest 1V IMPRESSION: No evidence of acute disease.
[2022-09-04 15:36] VITALS: BP 163/82; PULSE 62; RESP 18; TEMP 36.9; O2SAT 99; BMI 27.4
[2022-09-04 16:04] LABS: IDNOW Serial# 08D9AD1C; Strep A Nucleic Acid Negative (Negative)
[2022-09-04 16:27] LABS: Influenza A PCR NEGATIVE (Negative); Influenza B PCR NEGATIVE (Negative); Resp Syncy Virus RNA Qual PCR NEGATIVE (Negative); SARS COV2 PCR INHOUSE NEGATIVE (Negative)
--- NOTE | 2022-09-04 16:50 | ED_ITS ---
HPI - General Adult General Chief complaint: General Medical Stated complaint: sore throat Time Seen by Provider: 09/04/22 16:35 Source: patient Mode of arrival: ambulatory Limitations: no limitations History of Present Illness HPI narrative: this is a 77-year-old female history of generalized anxiety, depression, dyslipidemia, VERA, hypothyroid, obesity presenting to the emergency department with complaints of fatigue, malaise, headache ( diffuse w/ out trauma, vision changes, dizziness) , fevers ( subjective) , chills, sore throat, myalgias for the past 3 weeks, not improving. Patient denies chest pain, shortness of breath, vision changes, dizziness, weakness, nausea, vomiting, abdominal pain, changes in urination or bowel habits, sick contacts, neck pain, lower extremity pain or swelling. Related Data Previous Rx's Medication Instructions Recorded lactulose 10 gram/15 mL oral 10 g (15 mL) PO BEDTIME PRN 06/15/20 solution constipation 30 days #450 mL lidocaine 4 % topical patch 3 patch topical DAILY PRN pain #30 07/06/21 (Aspercreme (lidocaine)) ea estradiol 0.01% (0.1 mg/gram) 1 g vaginal QWEEK 90 days #42.5 03/08/22 vaginal cream (Estrace) grams tobramycin 0.3 % eye drops 1 drp ophthalmic (eye) Q4H 5 days 04/10/22 #5 mL omeprazole 40 mg capsule,delayed 40 mg PO DAILY 90 days #90 caps 04/17/22 release disposable gloves (Biobrane Gloves #100 ea 06/01/22 Medium) incontinence pad, liner, disp #60 ea 06/01/22 (Affirm Pads) underpads 30 X 36 (Certainty #40 ea 06/01/22 Underpads) wipes #120 ea 06/01/22 atorvastatin 40 mg tablet 40 mg PO BEDTIME 90 days #90 tabs 06/14/22 lisinopril 40 mg tablet 40 mg PO DAILY 90 days #90 tabs 06/14/22 aspirin 81 mg tablet,delayed 81 mg PO DAILY cad prophylaxis 90 06/29/22 release days #90 tabs escitalopram oxalate 10 mg tablet 10 mg PO DAILY 90 days #90 tabs 07/05/22 cane #1 ea 07/13/22 levothyroxine 100 mcg tablet 100 mcg PO DAILY 90 days #90 tabs 07/13/22 cholecalciferol (vitamin D3) 50 50 mcg PO DAILY 90 days #90 caps 07/25/22 mcg (2,000 unit) capsule ferrous sulfate 325 mg (65 mg 325 mg PO DAILY 90 days #90 tabs 08/03/22 iron) tablet folic acid 1 mg tablet 1 mg PO DAILY 90 days #90 tabs 08/03/22 tramadol 50 mg tablet 50 mg PO BID PRN pain 30 days #60 09/01/22 tabs zolpidem 12.5 mg tablet,extended 12.5 mg PO BEDTIME PRN insomnia 30 09/01/22 release,multiphase days #30 tabs amoxicillin 875 mg-potassium 1 tab PO BID 10 days #20 tabs 09/04/22 clavulanate 125 mg tablet Allergies Allergy/AdvReac Type Severity Reaction Status Date / Time No Known Allergies Allergy Verified 09/04/22 15:44 Review of Systems Review of Systems: Constitutional : No Weight loss, + Fever, + Chills, + Fatigue, No Malaise ENT/Mouth : + sore throat, No Rhinorrhea Eyes: No Eye Pain, No Swelling, No Redness Cardiovascular : No Chest Pain, No SOB, No Dyspnea on Exertion, No Orthopnea, No Edema, No Palpitations Respiratory : No Cough, No Sputum, No Wheezing Gastrointestinal : No Nausea, No Vomiting, No Diarrhea, No Constipation, No abdominal Pain, No Hematochezia, No Melena Genitourinary : No Dysuria, No Urinary Frequency, No Hematuria, Musculoskeletal : No joint pain, No Myalgias, No Joint Swelling Skin : No Skin Lesions, No rash Neuro : No Weakness, No Numbness, No Dizziness, + Headache Psych : No Anxiety/Panic, No Depression All other systems reviewed and are negative Yes all other systems are reviewed and are negative [facility] Past Medical History Attestation statement: The following information was validated with the patient. Source: old records reviewed and nursing notes reviewed Medical History VERA (acute kidney injury) B12 deficiency Chronic fatigue Dyslipidemia CLAYTON (generalized anxiety disorder) GERD (gastroesophageal reflux disease) Hypovitaminosis D Insomnia due to mental condition Long-term use of aspirin therapy Moderate recurrent major depression Osteopenia Urge urinary incontinence Surgical History History of appendectomy History of tubal ligation Family History Family History Father CVD (cardiovascular disease) Mother Chronic mental illness Brother Lung cancer Family/Other FH: mental illness Social History Social History Housing: House Alcohol intake: never Patient Tobacco Use Status: Current everyday Tobacco user Tobacco use type: Cigarette Cigarettes Per Day: 1 Years Smoked: 55 e-Cigarette/Vaping Use: Never Used Second Hand Smoke Exposure: No Advance Directives: No Advance Directives Information Provided: Yes service: No Current occupational status: disabled Cognitive needs: Yes Hearing needs: No Vision needs: Yes Physical Exam ED Vital Signs: Vital Signs - 24 hr 09/04/22 15:36 Temperature 98.4 F Pulse Rate 62 Respiratory Rate 18 Blood Pressure 163/82 H Pulse Oximetry 99 Oxygen Delivery Method Room Air BMI result Body Mass Index 27.4 vital signs stable Appearance: Alert.? Oriented X3.? No acute distress.? Head: Normocephalic, atraumatic, no step-offs or deformities Eyes: Pupils equal, round and reactive to light.? Neck: Normal inspection.? Neck supple.? Negative Kernig and Brudzinski. Throat: Normal posterior pharynx, no erythema, edema, exudate, peritonsillar abscess, retropharyngeal abscess. Patient speaking full sentences controlling secretions well CVS: Normal heart rate and rhythm.? Pulses normal.? Respiratory: No respiratory distress.? Breath sounds normal.? Abdomen: Soft and nontender.? Skin: Skin warm and dry.? Normal skin color.? Normal skin turgor.? Extremities: No lower extremity edema.? No calf ttp. 5/5 strength to bilateral upper and lower extremities Neuro: Oriented X 3.? No motor deficit.? No sensory deficit. CN 2-12 intact . Normal [id number], [id number], steady tandem gait normal coordination. Course Reevaluation(s) Reevaluation #1: Patient's influenza, RSV, COVID, strep negative. UA and chest x-ray pending. Time: 16:55 Reevaluation #2: Chest x-ray and UA pending however patient states she would like to leave at this time, she states she has been waiting for to long and states she feels better. When I went to discuss AMA with dallin she eloped from the department. Time: 18:33 Reevaluation #3: Due to length of symptoms however I did give patient a script for Augmentin for sore throat. Time: 18:36 Medical Decision Making Medical Decision Making [facility] Narrative: 1652 77-year-old female presents with sore throat, fatigue, malaise, fevers, chills, headache started 3 weeks ago progressively worsening. Physical exam benign. No meningeal signs. Neuro nonfocal. Cerebellar intact. Likely viral in origin. I do not suspect bacterial meningitis, encephalitis, stroke, posterior stroke, retropharyngeal abscess, epiglottitis, peritonsillar abscess, sepsis. No signs of pneumonia. Unlikely UTI. Plan viral test, urine Differential Diagnosis Differential Diagnoses: The differential diagnosis associated with the presentation includes Likely viral in origin. I do not suspect bacterial meningitis, encephalitis, stroke, posterior stroke, retropharyngeal abscess, epiglottitis, peritonsillar abscess, sepsis. No signs of pneumonia. Unlikely UTI. Admission/Observation Consideration of admission/observation: Escalation of care including admission/observation considered unlikely Lab Data [facility] Lab Attestation statement: I reviewed the patient's lab results. Labs: Lab Results 09/04/22 09/04/22 Range/Units 15:43 15:43 Influenza Type A (PCR) NEGATIVE (Negative) Influenza Type B (PCR) NEGATIVE (Negative) RSV RNA Qual (PCR) NEGATIVE (Negative) SARS-CoV-2 RNA (RT-PCR) NEGATIVE (Negative) S. pyogenes GrpA JADON Negative (Negative) Independent Interpretation I performed an independent interpretation of an: Plain X-Ray Tests considered The following testing was considered but not selected: Patient is afebrile here, vital signs are stable, no meningeal signs, low suspicion for meningitis. No altered mental status. No need for lumbar puncture, or head imaging. Neuro nonfocal, cerebellar intact, no need for head CT. Prescription Management I considered prescription management with: Antibiotic Core Measures AMI core measures followed: Yes Measure exclusions: not indicated Critical Care Time Critical Care Time Critical Care Time: No Discharge Plan Discharge Clinical Impression: Viral illness, Pharyngitis Patient Disposition: Home, Self-Care Instructions: Pharyngitis (ED), Viral Syndrome (ED) Additional Instructions: Take your medications as prescribed. If you were prescribed antibiotics today, it is important that you take your medication to their entirety, do not skip any doses, do not finish them early. Follow-up with your primary care provider this week. Return to the emergency department with new or worsening symptoms. Such as fevers, chills, chest pain, shortness of breath, nausea, vomiting, dizziness, headache, vision changes, lethargy In case of emergency call 911 Prescriptions: New amoxicillin-pot clavulanate 875-125 mg tablet 1 tab PO BID 10 Days Qty: 20 0RF No Action tobramycin 0.3 % drops 1 drp ophthalmic (eye) Q4H 5 Days Qty: 5 0RF omeprazole 40 mg capsule,delayed release(DR/EC) 40 mg PO DAILY 90 Days Qty: 90 0RF (DME) wipes See Rx Instructions .Route .MEDSUPPLY Qty: 120 11RF Rx Instructions: As directed (DME) underpads [Certainty Underpads] 30 X 36 pad See Rx Instructions .ROUTE .MEDSUPPLY Qty: 40 11RF Rx Instructions: As directed (DME) Affirm Pads Pad See Rx Instructions .ROUTE .MEDSUPPLY Qty: 60 11RF Rx Instructions: As directed (DME) disposable gloves [Biobrane Gloves Medium] Misc See Rx Instructions .ROUTE .MEDSUPPLY Qty: 100 11RF Rx Instructions: As directed atorvastatin 40 mg tablet 40 mg PO BEDTIME 90 Days Qty: 90 0RF lisinopril 40 mg tablet 40 mg PO DAILY 90 Days Qty: 90 3RF aspirin 81 mg tablet,delayed release (DR/EC) 81 mg PO DAILY 90 Days Qty: 90 3RF escitalopram oxalate 10 mg tablet 10 mg PO DAILY 90 Days Qty: 90 0RF (DME) cane Device See Rx Instructions .Route Qty: 1 0RF Rx Instructions: As directed cholecalciferol (vitamin D3) 50 mcg (2,000 unit) capsule 50 mcg PO DAILY 90 Days Qty: 90 1RF folic acid 1 mg tablet 1 mg PO DAILY 90 Days Qty: 90 1RF ferrous sulfate 325 mg (65 mg iron) tablet 325 mg PO DAILY 90 Days Qty: 90 0RF tramadol 50 mg tablet 50 mg PO BID PRN (Reason: pain) 30 Days Qty: 60 0RF zolpidem 12.5 mg tablet,ext release multiphase 12.5 mg PO BEDTIME PRN (Reason: insomnia) 30 Days Qty: 30 0RF lactulose 10 gram/15 mL solution 10 g PO BEDTIME PRN (Reason: constipation) 30 Days Qty: 450 6RF estradiol [Estrace] 0.01 % (0.1 mg/gram) cream 1 g vaginal QWEEK 90 Days Qty: 42.5 1RF lidocaine [Aspercreme (lidocaine)] 4 % adhesive patch,medicated 3 patch topical DAILY PRN (Reason: pain) Qty: 30 3RF levothyroxine 100 mcg tablet 100 mcg PO DAILY 90 Days Qty: 90 1RF Referrals: Jocy Hooper MD [Primary Care Provider] - 2 days Stand Alone Forms: Work/School Release
== END 2022-09-04 18:55 | disposition left against medical advice (07) ==
PROVIDERS: Emergency Provider Emergency Medicine; PCP Internal Medicine
DX: J02.8 Acute pharyngitis due to other specified organisms (principal); F41.9 Anxiety disorder, unspecified; F33.1 Major depressive disorder, recurrent, moderate; R51.9 Headache, unspecified; F17.210 Nicotine dependence, cigarettes, uncomplicated; Z20.822 Contact with and (suspected) exposure to COVID-19; Z20.828 Contact with and (suspected) exposure to other viral communicable diseases; Z71.6 Tobacco abuse counseling; Z79.899 Other long term (current) drug therapy
CPT/HCPCS: 0241U; 71045; 87651; 99282; 99283

== ENCOUNTER 2022-10-04 15:10 | Emergency (ER) | payer OTHER, SELFPAY ==
--- NOTE | ~2022-10-04 | CT_ITS ---
EXAMINATION: CT ABDOMEN AND PELVIS WITHOUT CONTRAST CLINICAL INFORMATION: Lower abdominal pain COMPARISON: Ultrasound pelvis 07/05/2022 TECHNIQUE: Multidetector volumetric imaging was performed from the superior aspect of the liver through the pubic symphysis. Sagittal and coronal reformatted images were obtained on the technologist's workstation. This CT examination was performed using dose optimization techniques as appropriate, variously including the following: *Automated exposure control *Adjustment of mA and/or kV according to patient size (this includes techniques or standardized protocols for targeted exams where dose is matched to indication/reason for exam; i.e. extremities or head) *Use of iterative reconstruction technique DLP: 541 mGy-cm FINDINGS: LUNG BASES: The visualized lung bases are unremarkable. Some minimal bibasilar atelectasis is present LIVER, GALLBLADDER, AND BILIARY TREE: The liver is normal in size, shape, and attenuation. No focal hepatic lesion or biliary ductal dilatation is present. The gallbladder is unremarkable with no evidence of radiopaque gallstones, gallbladder wall thickening, or obvious pericholecystic inflammatory changes. PANCREAS: Unremarkable. SPLEEN: Unremarkable. ADRENAL GLANDS: Unremarkable. KIDNEYS AND URETERS: There is scarring present at the upper pole the right kidney with a 2 mm stone in an upper pole calyx. No hydronephrosis or worrisome renal masses are present. In the left kidney, there is 2.2 cm upper pole Bosniak class I cyst present which needs no additional imaging or follow-up. No solid renal masses. No left-sided nephrolithiasis. Both ureters appear unremarkable. BLADDER: Unremarkable. GASTROINTESTINAL TRACT: The small and large bowel are unremarkable aside from a few scattered colonic diverticula without diverticulitis. Surgical clips are seen in the area of appendix which is not seen, presumably. ABDOMINAL WALL: Small periumbilical hernia is seen containing only fat. LYMPH NODES: No retroperitoneal lymphadenopathy. VASCULAR: Calcific plaque present in the aorta and iliac vessels without aneurysm PELVIC VISCERA: The uterus and adnexa are unremarkable. OSSEOUS STRUCTURES: Degenerative changes are present spine most marked at L2-L3. CT/CT abdomen pelvis wo IV con IMPRESSION: A cause for the patient's lower abdominal pain has not been found. Incidental findings as described above. Fleischner guidelines were followed.
[2022-10-04 15:18] VITALS: BP 135/58; PULSE 70; RESP 18; TEMP 36; O2SAT 97; BMI 28.0
--- NOTE | 2022-10-04 15:18 | ED.ABDPAIN ---
HPI - Abdominal Pain General Chief Complaint: Abdominal Pain Stated Complaint: abdominal pain, back pain. bowel= white/black Time Seen by Provider: 10/04/22 18:10 Source: patient Mode of arrival: ambulatory Limitations: no limitations History of Present Illness HPI narrative: 77-year-old female presents with abdominal pain. The pain is lower abdomen. Sometimes radiates to the bilateral flanks. Associated with nausea no vomiting. She has had no diarrhea. She has chronic constipation. She has noted she had some white mucousy discharge from her bowel movements. She reports constipation which is fairly normal for her. She has had some subjective fevers and chills. She denies any urinary frequency, urgency but does have some dysuria. Patient describes the pain as cramping like when she had her periods. Pain is a 7/10. There is no clear relieving or exacerbating features. It is associated with anorexia. Patient denies any vaginal bleeding or discharge Related Data Previous Rx's Medication Instructions Recorded lactulose 10 gram/15 mL oral 10 g (15 mL) PO BEDTIME PRN 06/15/20 solution constipation 30 days #450 mL lidocaine 4 % topical patch 3 patch topical DAILY PRN pain #30 07/06/21 (Aspercreme (lidocaine)) ea estradiol 0.01% (0.1 mg/gram) 1 g vaginal QWEEK 90 days #42.5 03/08/22 vaginal cream (Estrace) grams tobramycin 0.3 % eye drops 1 drp ophthalmic (eye) Q4H 5 days 04/10/22 #5 mL omeprazole 40 mg capsule,delayed 40 mg PO DAILY 90 days #90 caps 04/17/22 release disposable gloves (Biobrane Gloves #100 ea 06/01/22 Medium) incontinence pad, liner, disp #60 ea 06/01/22 (Affirm Pads) underpads 30 X 36 (Certainty #40 ea 06/01/22 Underpads) wipes #120 ea 06/01/22 atorvastatin 40 mg tablet 40 mg PO BEDTIME 90 days #90 tabs 06/14/22 lisinopril 40 mg tablet 40 mg PO DAILY 90 days #90 tabs 06/14/22 escitalopram oxalate 10 mg tablet 10 mg PO DAILY 90 days #90 tabs 07/05/22 cane #1 ea 07/13/22 levothyroxine 100 mcg tablet 100 mcg PO DAILY 90 days #90 tabs 04/27/23 cholecalciferol (vitamin D3) 50 50 mcg PO DAILY 90 days #90 caps 07/25/22 mcg (2,000 unit) capsule ferrous sulfate 325 mg (65 mg 325 mg PO DAILY 90 days #90 tabs 08/03/22 iron) tablet folic acid 1 mg tablet 1 mg PO DAILY 90 days #90 tabs 08/03/22 amoxicillin 875 mg-potassium 1 tab PO BID 10 days #20 tabs 09/04/22 clavulanate 125 mg tablet aspirin 81 mg tablet,delayed 81 mg PO DAILY cad prophylaxis 90 09/14/22 release days #90 tabs zolpidem 12.5 mg tablet,extended 12.5 mg PO BEDTIME PRN insomnia 30 09/27/22 release,multiphase days #30 tabs tramadol 50 mg tablet 50 mg PO BID PRN pain 30 days #60 09/30/22 tabs dicyclomine 20 mg tablet 20 mg PO TID #10 tabs 10/04/22 ondansetron 4 mg disintegrating 4 mg PO Q8H PRN nausea and 10/04/22 tablet vomiting #10 tabs Allergies Allergy/AdvReac Type Severity Reaction Status Date / Time No Known Allergies Allergy Verified 10/04/22 15:25 Review of Systems Review of Systems CONSTITUTIONAL: Denies weight loss, fever and chills. HEENT: Denies changes in vision and hearing. RESPIRATORY: Denies SOB and cough. CV: Denies palpitations no CP. GI: + abdominal pain, nausea,- vomiting and diarrhea. : Denies dysuria and urinary frequency. MSK: Denies myalgia and joint pain. SKIN: Denies rash and pruritus. NEUROLOGICAL: Denies headache and syncope. PSYCHIATRIC: Denies recent changes in mood. Denies anxiety and depression. All other ROS are negative unless in HPI PMFSH Past Medical History Medical History VERA (acute kidney injury) B12 deficiency Chronic fatigue Dyslipidemia CLAYTON (generalized anxiety disorder) GERD (gastroesophageal reflux disease) Hypovitaminosis D Insomnia due to mental condition Long-term use of aspirin therapy Moderate recurrent major depression Osteopenia Urge urinary incontinence Surgical History History of appendectomy History of tubal ligation Family History Family History Father CVD (cardiovascular disease) Mother Chronic mental illness Brother Lung cancer Family/Other FH: mental illness Social History Social History Housing: House Alcohol intake: never Patient Tobacco Use Status: Current everyday Tobacco user Tobacco use type: Cigarette Cigarettes Per Day: 1 Years Smoked: 55 e-Cigarette/Vaping Use: Never Used Second Hand Smoke Exposure: No Advance Directives: No Advance Directives Information Provided: Yes service: No Current occupational status: disabled Cognitive needs: Yes Hearing needs: No Vision needs: Yes Physical Exam ED Vital Signs: Vital Signs - 24 hr 10/04/22 15:18 Temperature 96.8 F Pulse Rate 70 Respiratory Rate 18 Blood Pressure 135/58 L Pulse Oximetry 97 Oxygen Delivery Method Room Air BMI result Body Mass Index 28.0 GEN: Well developed, no acute distress, alert, oriented HEENT: Normocephalic, atraumatic, normal external ears, nose appears normal, no oropharyngeal edema or exudates Eyes: Normal to appearance Neck: Supple, no lymphadenopathy Respiratory: Talks in complete sentences, no respiratory distress, clear to auscultation bilaterally Cardiovascular: Regular rate and rhythm, no murmurs rubs or gallops Abdomen: Soft, nontender, nondistended, no guarding, no rebound Back: No CVA tenderness Extremities: No clubbing cyanosis or edema Neurologic: No focal neurologic deficits, cranial nerves 2-12 intact, strength is 5/5 bilaterally Skin: No rash Course Course Course Narrative: RME: 77 year old patient with history of VERA, GERD, Hypothyroidism, HTN, Osteopenia, and B12 deficiency, presents today with 3 days of abdominal and low back pain. She states that she had white fatty stools today and has been nausea and elicits emesis x1. Says she had fever yesterday and last night. Plan: Abdominal CT w/o contrast and lab Reevaluation(s) Reevaluation #1: The workup is complete. Laboratory analysis is unremarkable. There is no evidence urinary tract infection. CT scan does not demonstrate any significant acute abnormalities. Cause of patient's symptoms is not entirely clear. At this point, IBD yes, motility, bacterial overgrowth make this more likely diagnosis. Will refer to Gastroenterology. She has never had a colonoscopy. Time: 18:49 Medical Decision Making Medical Decision Making [facility] Narrative: 77-year-old female presents with lower abdominal pain. Differential diagnosis includes UTI, pyelonephritis, IBS, IBD, diverticulitis, colitis, appendicitis, epiploic appendagitis, mesenteric adenitis, bacterial overgrowth, doubt AAA or dissection. Examination and symptoms are not consistent with this. Doubt mesenteric ischemia. Will check routine laboratory analysis, check urinalysis to rule out urinary tract infection/pyelonephritis. Will obtain a CT scan to rule out the above differential diagnoses. Differential Diagnosis Differential Diagnoses: The differential diagnosis associated with the presentation includes (See above) Admission/Observation Consideration of admission/observation: Escalation of care including admission/observation considered (Depending on imaging and laboratory analysis, patient may warrant hospitalization.) Lab Data [facility] Lab Attestation statement: I reviewed the patient's lab results. 10/04/22 16:02 10/04/22 16:02 Labs: Lab Results 10/04/22 10/04/22 10/04/22 Range/Units 16:02 16:02 16:09 WBC 6.7 (4.8-10.8) X10*3/uL RBC 4.00 L (4.20-5.50) X10*6/uL Hgb 11.8 L (12.0-16.0) g/dl Hct 36.8 L (37.0-47.0) % MCV 92.0 (80.0-98.0) fL MCH 29.5 (27.0-33.0) pg MCHC 32.1 (31.0-35.0) g/dl RDW 15.0 (11.0-16.0) % Plt Count 229 (160-400) X10*3/uL MPV 9.2 L (9.4-12.3) fL Immature Gran % (Auto) 0.3 (0.0-0.4) % Neut % (Auto) 63.2 (45-73) % Lymph % (Auto) 26.2 (20-40) % [place] % (Auto) 7.4 (2-11) % Eos % (Auto) 2.2 (0-4) % Baso % (Auto) 0.7 (0-2) % Lymph # (Auto) 1.8 (1.2-4.9) X10*3/uL [place] # (Auto) 0.5 (0.1-1.2) X10*3/uL Eos # (Auto) 0.2 (0.0-0.4) X10*3/uL Baso # (Auto) 0.1 (0.0-0.2) X10*3/uL Abs Immat Gran (auto) 0.02 (0.00-0.03) X10*3/uL Absolute Neuts (auto) 4.3 (2.0-8.3) x10*3/uL Absolute Nucleated RBC 0.000 (0.0-0.012) X10*3/uL Nucleated RBC % (auto) 0.0 (0.0-0.2) /100WBC Sodium 143 (135-145) mmol/L Potassium 3.9 (3.3-5.1) mmol/L Chloride 110 H (96-108) mmol/L BUN 13 (9-16) mg/dL Creatinine 1.20 (0.5-1.4) mg/dL Estim Creat Clear Calc 37.8 Estimated GFR 44 Random Glucose 108 (60-115) mg/dL Calcium 9.5 D (8.4-10.2) mg/dL Magnesium 1.8 (1.6-2.6) mg/dL Total Bilirubin 0.3 (0.0-1.0) mg/dL Direct Bilirubin 0.1 (0.0-0.5) mg/dL AST 22 (5-31) U/L ALT 25 (0-31) U/L Alkaline Phosphatase 98 (39-117) U/L Total Protein 6.9 (6.5-8.0) g/dL Albumin 4.1 (3.5-5.0) g/dL Lipase 26 (8-78) U/L Urine Color Dark Yellow Urine Appearance Clear Urine pH 6.0 (5.0-9.0) Ur Specific [place] 1.025 (1.005-1.025) Urine Protein 30 (1+) H (Neg-Trace) mg/dL Urine Glucose (UA) Negative (Negative) mg/dL Urine Ketones Trace (Negative) mg/dL Urine Blood Negative (Negative) Urine Nitrite Negative (Negative) Ur Leukocyte Esterase Negative (Negative) Urine RBC 0-2 (0-2) /HPF Urine WBC 0-5 (0-5) /HPF Ur Squamous Epith Cells 3-5 (0-2) /HPF Urine Bacteria None Seen (None Seen) Hyaline Casts 0-2 (0-2) /LPF Independent Interpretation I performed an independent interpretation of an: CT Scan (Abdomen pelvis: No acute abnormalities) Radiology Impression Discussion of test interpretation with radiology: I have reviewed the radiologist's reading. Radiologist Impression: CT/CT abdomen pelvis wo IV con IMPRESSION: A cause for the patient's lower abdominal pain has not been found. Incidental findings as described above. ? Fleischner guidelines were followed. Dictated By: Aj Peng MD Signed By: <Electronically signed by Aj Peng MD in [place]> 10/04/22 1651 Prescription Management I considered prescription management with: Pain Medication Chronic Conditions Patient?s care impacted by: Hypertension Discharge Plan Discharge Clinical Impression: Abdominal pain Patient Disposition: Home, Self-Care Instructions: Abdominal Pain (ED) Prescriptions: New ondansetron 4 mg tablet,disintegrating 4 mg PO Q8H PRN (Reason: nausea and vomiting) Qty: 10 0RF dicyclomine 20 mg tablet 20 mg PO TID Qty: 10 0RF No Action tobramycin 0.3 % drops 1 drp ophthalmic (eye) Q4H 5 Days Qty: 5 0RF omeprazole 40 mg capsule,delayed release(DR/EC) 40 mg PO DAILY 90 Days Qty: 90 0RF (DME) wipes See Rx Instructions .Route .MEDSUPPLY Qty: 120 11RF Rx Instructions: As directed (DME) underpads [Certainty Underpads] 30 X 36 pad See Rx Instructions .ROUTE .MEDSUPPLY Qty: 40 11RF Rx Instructions: As directed (DME) Affirm Pads Pad See Rx Instructions .ROUTE .MEDSUPPLY Qty: 60 11RF Rx Instructions: As directed (DME) disposable gloves [Biobrane Gloves Medium] Misc See Rx Instructions .ROUTE .MEDSUPPLY Qty: 100 11RF Rx Instructions: As directed atorvastatin 40 mg tablet 40 mg PO BEDTIME 90 Days Qty: 90 0RF lisinopril 40 mg tablet 40 mg PO DAILY 90 Days Qty: 90 3RF escitalopram oxalate 10 mg tablet 10 mg PO DAILY 90 Days Qty: 90 0RF (DME) cane Device See Rx Instructions .Route Qty: 1 0RF Rx Instructions: As directed cholecalciferol (vitamin D3) 50 mcg (2,000 unit) capsule 50 mcg PO DAILY 90 Days Qty: 90 1RF folic acid 1 mg tablet 1 mg PO DAILY 90 Days Qty: 90 1RF ferrous sulfate 325 mg (65 mg iron) tablet 325 mg PO DAILY 90 Days Qty: 90 0RF aspirin 81 mg tablet,delayed release (DR/EC) 81 mg PO DAILY 90 Days Qty: 90 3RF zolpidem 12.5 mg tablet,ext release multiphase 12.5 mg PO BEDTIME PRN (Reason: insomnia) 30 Days Qty: 30 0RF tramadol 50 mg tablet 50 mg PO BID PRN (Reason: pain) 30 Days Qty: 60 0RF amoxicillin-pot clavulanate 875-125 mg tablet 1 tab PO BID 10 Days Qty: 20 0RF lactulose 10 gram/15 mL solution 10 g PO BEDTIME PRN (Reason: constipation) 30 Days Qty: 450 6RF estradiol [Estrace] 0.01 % (0.1 mg/gram) cream 1 g vaginal QWEEK 90 Days Qty: 42.5 1RF lidocaine [Aspercreme (lidocaine)] 4 % adhesive patch,medicated 3 patch topical DAILY PRN (Reason: pain) Qty: 30 3RF levothyroxine 100 mcg tablet 100 mcg PO DAILY 90 Days Qty: 90 1RF Referrals: Jonathon Arce [Physician] - 1 week
[2022-10-04 16:05] LABS: MANUAL DIFF FLAG NO
[2022-10-04 16:08] LABS: Basophils Absolute Auto 0.1 X10*3/uL (0.0-0.2); Basophils Percent Auto 0.7 % (0-2); Eosinophils Absolute Auto 0.2 X10*3/uL (0.0-0.4); Eosinophils Percent Auto 2.2 % (0-4); Hematocrit 36.8 % (37.0-47.0); Hemoglobin 11.8 g/dl (12.0-16.0); Imm Gran Abs Auto 0.02 X10*3/uL (0.00-0.03); Imm Gran Pct Auto 0.3 % (0.0-0.4); Lymphocytes Absolute Auto 1.8 X10*3/uL (1.2-4.9); Lymphocytes Percent Auto 26.2 % (20-40); Mean Corpuscular HGB Conc 32.1 g/dl (31.0-35.0); Mean Corpuscular Hemoglobin 29.5 pg (27.0-33.0); Mean Platelet Volume 9.2 fL (9.4-12.3); Monocytes Absolute Auto 0.5 X10*3/uL (0.1-1.2); Monocytes Percent Auto 7.4 % (2-11); Neutrophils Absolute Auto 4.3 x10*3/uL (2.0-8.3); Neutrophils Percent Auto 63.2 % (45-73); Platelet Count 229 X10*3/uL (160-400); White Blood Count 6.7 X10*3/uL (4.8-10.8)
[2022-10-04 16:17] LABS: Appearance Urine Clear; Color Urine Dark Yellow; Glucose Urine UA Negative (Negative); Leukocyte Esterase Urine Negative (Negative); Nitrite Urine Negative (Negative); Specific Gravity - Urine 1.025 (1.005-1.025); UMIC TRIGGER UACC YES; Urine Blood Negative (Negative); Urine Ketones Trace mg/dL (Negative); Urine Protein 30 (1+) mg/dL (Neg-Trace)
[2022-10-04 16:34] LABS: Alanine Aminotransferase 25 U/L (0-31); Albumin Level 4.1 g/dL (3.5-5.0); Alkaline Phosphatase 98 U/L (39-117); Aspartate Amino Transferase 22 U/L (5-31); Bilirubin Direct 0.1 mg/dL (0.0-0.5); Bilirubin Total 0.3 mg/dL (0.0-1.0); Blood Urea Nitrogen 13 mg/dL (9-16); Calcium 9.5 mg/dL (8.4-10.2); Chloride 110 mmol/L (96-108); Creatinine Clr Calc Pharmacy 37.8; Estimated Glomerular Filt Rate 44; Glucose Random 108 mg/dL (60-115); Lipase 26 U/L (8-78); Magnesium 1.8 mg/dL (1.6-2.6); Potassium 3.9 mmol/L (3.3-5.1); Sodium 143 mmol/L (135-145); Total Protein 6.9 g/dL (6.5-8.0)
[2022-10-04 16:52] LABS: Bacteria Urine None Seen (None Seen); Hyaline Casts Urine 0-2 /LPF (0-2); RBC Urine 0-2 /HPF (0-2); WBC Urine 0-5 /HPF (0-5)
[2022-10-04] MEDS: Dicyclomine HCl 10 MG CAPSULE PO (19:37)
[2022-10-04] MEDS: Ondansetron ODT 4 MG TAB.RAPDIS TRANSLINGU (19:38)
[2022-10-04 19:41] VITALS: BP 138/81; PULSE 62; RESP 17; O2SAT 100
[2022-10-04 21:33] LABS: Carbon Dioxide 21 mmol/L (22-29)
== END 2022-10-04 19:46 | disposition home or self-care (01) ==
PROVIDERS: Physician Assistant; Emergency Provider Emergency Medicine; PCP Internal Medicine
DX: R10.30 Lower abdominal pain, unspecified (principal); F17.210 Nicotine dependence, cigarettes, uncomplicated; I10 Essential (primary) hypertension; Z79.82 Long term (current) use of aspirin; Z79.899 Other long term (current) drug therapy
CPT/HCPCS: 36415; 74176; 80048; 80076; 81001; 83690; 83735; 85025; 99284

== ENCOUNTER 2022-10-17 13:52 | Outpatient (AMB) | payer OTHER, SELFPAY ==
--- NOTE | 2022-10-17 14:00 | MHC.OFFVIS ---
Intake Vital Signs 10/17/22 14:07 Height 5 ft 3 in Weight 156 lb 8.451 oz BMI 27.7 BP 120/74 Intake Visit Reasons: post op / vulva bx Make Up Operator Helper Required: Yes Make Up Operator Helper Language: College Sports Assistant Name: Martha ZAZUETA Information Interpreted: non-clinical & clinical Certified Medical Transcriptionist: Certified Medical Transcriptionist Present (Martha ZAZUETA) Accompanied by: Self / Same As Patient Allergies No Known Allergies Allergy (Verified 10/17/22 14:09) HPI HPI Comments History of Present Illness Details The patient is presenting post hysteroscopy D&C no complaints minimal vaginal bleeding no feverishness chills or abdominal pain. The pathology showed the following: A. Endometrium, polyp: Endometrial polyp; no atypia identified. B. Endometrium, curettage: - Superficial strips of atrophic endometrium; no atypia or hyperplasia identified. - Fragments of squamous epithelium within normal limits. REPLACED BY [facility] Medical History VERA (acute kidney injury) B12 deficiency Chronic fatigue Dyslipidemia CLAYTON (generalized anxiety disorder) GERD (gastroesophageal reflux disease) Hypovitaminosis D Insomnia due to mental condition Long-term use of aspirin therapy Moderate recurrent major depression Osteopenia Urge urinary incontinence Surgical History History of appendectomy History of tubal ligation Family History Father CVD (cardiovascular disease) Mother Chronic mental illness Brother Lung cancer Family/Other FH: mental illness Social History Housing: House Alcohol intake: never Patient Tobacco Use Status: Current everyday Tobacco user Tobacco use type: Cigarette Cigarettes Per Day: 1 Years Smoked: 55 e-Cigarette/Vaping Use: Never Used Second Hand Smoke Exposure: No service: No Current occupational status: disabled Cognitive needs: Yes Hearing needs: No Vision needs: Yes Female Reproductive History Menstrual Age of Menarche: 17 Physical Exam Vital Signs: Last Vital Signs BP 120/74 10/17/22 14:07 BMI result Body Mass Index 27.7 Assessment & Plan Assessment & Plan (1) Post-menopausal bleeding: Code(s): N95.0 - Postmenopausal bleeding Plan: Discussed with the patient the intraoperative finding, endometrial polyp, and the pathology results of the endometrial scrapings and endometrial polyp showing benign endometrial polyp and inactive endometrium. Discussed with the patient the sensitivity, specificity, positive and negative predictive value, of endometrial biopsy in detecting endometrial pathology including but not limited to endometrial hyperplasia, cancer and other pathology; instructed the patient to call in case is vaginal bleeding bleeding recurs, the next step will be to proceed with further endometrial sampling evaluation to rule out endometrial pathology. All questions answered and the patient verbalized understanding and agreed with the plan. Coding Level of Care Code Est Pt Level 3 (04601) Diagnoses Post-menopausal bleeding N95.0
[2022-10-17 14:07] VITALS: BP 120/74; BMI 27.7
== END 2022-10-17 14:16 | disposition home or self-care (01) ==
LOC: HO.HWS 13:52
PROVIDERS: PCP Internal Medicine; Visit Provider Obstetrics & Gynecology
DX: N95.0 Postmenopausal bleeding (principal)
CPT/HCPCS: 99213

== ENCOUNTER → 2022-10-17 13:52 | Outpatient (BNVA) | payer OTHER, SELFPAY | PROVIDERS: PCP Internal Medicine; Visit Provider Obstetrics & Gynecology | DX: N95.0 Postmenopausal bleeding (principal) | CPT/HCPCS: 99212 ==

== ENCOUNTER 2022-11-01 13:38 | Outpatient (AMB) | payer OTHER, SELFPAY ==
[2022-11-01 13:40] VITALS: BP 134/82; PULSE 76; O2SAT 97; BMI 27.5
--- NOTE | 2022-11-01 13:40 | A.OFFPC_ITS ---
Vital Signs 11/01/22 13:40 Height 5 ft 3 in Weight 155 lb BMI 27.5 BP 134/82 Blood Pressure Location Lt brachial Position Sitting Pulse 76 Pulse Source Pulse Oximeter Pulse Oximetry (%) 97 Oxygen Delivery Method Room Air Intake Visit Reasons: [facility] 10/04/22 abdominal pain Intake Note: Patient is here to follow-up after a visit the emergency department at [facility] on 10/04/2022 for Abdominal Pain. 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: No Accompanied by: Self / Same As Patient Allergies No Known Allergies Allergy (Verified 11/01/22 13:50) Medication List - Last Reconciled 11/01/22 by Jocy Lino MD aspirin 81 mg PO DAILY 90 days atorvastatin 40 mg PO BEDTIME 90 days cane As directed cholecalciferol (vitamin D3) 50 mcg PO DAILY 90 days dicyclomine 20 mg PO TID disposable gloves (Biobrane Gloves Medium) As directed escitalopram oxalate 10 mg PO DAILY 90 days estradiol 0.01%(0.1mg/gram) (Estrace) 1 g vaginal QWEEK 90 days ferrous sulfate 325 mg PO DAILY 90 days folic acid 1 mg PO DAILY 90 days incontinence pad, liner, disp (Affirm Pads) As directed lactulose 10 grams (15 mL) PO BEDTIME PRN 30 days levothyroxine 100 mcg PO DAILY 90 days lidocaine 4% (Aspercreme (lidocaine)) 3 patches topical DAILY PRN lisinopril 40 mg PO DAILY 90 days omeprazole 40 mg PO DAILY 90 days ondansetron 4 mg PO Q8H PRN tobramycin 0.3% 1 drp ophthalmic (eye) Q4H 5 days tramadol 50 mg PO BID PRN 30 days underpads (Certainty Underpads) As directed [wipes As directed] zolpidem ER 12.5 mg PO BEDTIME PRN 30 days Tobacco use date assessed: 07/13/22 Fall risk assessment: No Falls in past year Last assessed Fall Risk: 11/01/22 Dental Screening Dental Screen Date: 11/01/22 Did you have a dental visit in the last 12 months?: Yes Did you have a dental problem in the last 6 months where you did not have access to dental care?: No Was dental information given to patient?: Patient has dentist HPI HPI Comments History of Present Illness Details This is a 77-year-old female with hypothyroidism, GERD and moderate major depression that comes today complaining of diffuse abdominal pain throughout the abdomen that has been present almost everyday with a decrease in appetite. This started few weeks ago. She went to ER and CT scan of the abdomen showed umbilical hernia but no abnormal finding explaining the abdominal pain. For the hernia she will be referred to surgery. For the abdominal pain referral to Gastroenterology will be done. Last TSH was elevated and this will be repeated today. GERD somewhat stable with medications. Depression also stable with medications. Complains of constipation with less than 3 bowel movements a week and declines lactulose because it is liquid. She is accompanied by new SMELTER LINER today [facility] Medical History (Updated 11/01/22 @ 14:00 by Jocy Lino MD) VERA (acute kidney injury) B12 deficiency Chronic fatigue Dyslipidemia CLAYTON (generalized anxiety disorder) GERD (gastroesophageal reflux disease) Hypovitaminosis D Insomnia due to mental condition Long-term use of aspirin therapy Moderate recurrent major depression Osteopenia Urge urinary incontinence Surgical History History of appendectomy History of tubal ligation Family History Father CVD (cardiovascular disease) Mother Chronic mental illness Brother Lung cancer Family/Other FH: mental illness Social History Housing: House Alcohol intake: never Patient Tobacco Use Status: Current everyday Tobacco user Tobacco use type: Cigarette Cigarettes Per Day: 1 Years Smoked: 55 e-Cigarette/Vaping Use: Never Used Second Hand Smoke Exposure: No service: No Current occupational status: disabled Cognitive needs: Yes Hearing needs: No Vision needs: Yes Female Reproductive History Menstrual Age of Menarche: 17 Questionnaire Thrive Questionnaire Date Thrive assessed: 07/13/22 CLAYTON-7 AMB Questionnaire CLAYTON-7 Date CLAYTON - 7 assessed: 07/13/22 Source: Developed by Drs. Flash Hackett, Iraida Dang, Osmani Weaver and colleagues, with an educational yordan from [employer]. Review of Systems Const All systems reviewed & are unremarkable except as noted in HPI and below Eyes Reports no additional complaints, Denies change in vision and Denies other visual disturbances Card Denies chest pain at rest, Denies chest pain with activity, Denies edema, Denies irregular heart rhythm, Denies claudication, Denies dyspnea, Denies dyspnea on exertion, Denies orthopnea, Denies paroxysmal nocturnal dyspnea and Denies slow heart rate Resp Denies cough, Denies dyspnea and Denies dyspnea on exertion GI Reports abdominal pain, Denies change in bowel habits, Reports constipation, Denies excessive flatus, Denies nausea and Denies vomiting Denies urinary incontinence, Denies urinary hesitancy and Denies urinary urgency Musc Denies abnormal gait, Denies atrophy, Denies deformity and Denies limited range of motion Skin/Breast Denies bleeding lesions, Denies changing lesions and Denies rash Neuro Denies abnormal gait and Denies lack of coordination Physical exam (Primary Care) Vital Signs: Last Vital Signs Pulse 76 11/01/22 13:40 BP 134/82 11/01/22 13:40 Pulse Ox 97 11/01/22 13:40 Oxygen Delivery Method Room Air 11/01/22 13:40 BMI result Body Mass Index 27.5 Tobacco/Smoking Status: Tobacco use Status Tobacco use date assessed 07/13/22 11/01/22 13:44 Patient Tobacco Use Status Current everyday Tobacco 11/01/22 13:44 Tobacco use type Cigarette 11/01/22 13:44 e-Cigarette/Vaping Use Never Used 11/01/22 13:44 Thrive Assessment: Date of Thrive Assessment Date Thrive assessed 07/13/22 11/01/22 13:44 Neck Neck: Yes normal visual inspection and Yes supple Resp Effort & Inspection: normal respiratory effort Auscultation: clear to auscultation bilaterally Cardio Jugular venous distension: no JVD Rate: regular rate Rhythm: regular rhythm Heart sounds: S1 normal heart sound present and S2 normal heart sound present GI Inspection: Yes normal to inspection Palpation (GI): Soft to palpation and nontender Auscultation: normal bowel sounds Extrem General: Yes full ROM Assessment and Plan Assessment & Plan (1) Moderate recurrent major depression: Code(s): F33.1 - Major depressive disorder, recurrent, moderate Plan: Continue escitalopram (2) GERD (gastroesophageal reflux disease): Code(s): K21.9 - Gastro-esophageal reflux disease without esophagitis Plan: Continue PPIs (3) Hypothyroid: Code(s): E03.9 - Hypothyroidism, unspecified Qualifiers: Hypothyroidism type: unspecified Qualified Code(s): E03.9 - Hypothy roidism, unspecified Plan: Repeat TSH today. (4) Abdominal pain: Code(s): R10.9 - Unspecified abdominal pain Plan: Referred to Gastroenterology Orders: Orders Thyroid Stimulating Hormone Today E03.9 - Hypothyroidism, unspecified Referrals Gastroenterology Referral R10.9 - Unspecified abdominal pain General Surgery Referral K42.9 - Umbilical hernia without obstruction or gangrene Medications: New docusate calcium 240 mg PO BID 90 days PRN 180 caps 0RF constipation Refilled tramadol 50 mg PO BID 30 days PRN 60 tabs 0RF pain folic acid 1 mg PO DAILY 90 days 90 tabs 1RF E53.8 - Deficiency of other specified B group vitamins Discontinued lactulose Discontinued Reason: Patient Completed Course 10 grams (15 mL) PO BEDTIME 30 days PRN 450 mL 6RF constipation Coding Level of Care Code Est Pt Level 4 (92160) Diagnoses Moderate recurrent major depression F33.1 GERD (gastroesophageal reflux disease) K21.9 Hypothyroid E03.9 Hypothyroidism type: unspecified Abdominal pain R10.9 Time Spent (min) 22
== END 2022-11-01 14:03 | disposition home or self-care (01) ==
PROVIDERS: PCP Internal Medicine; Visit Provider Internal Medicine
DX: F33.1 Major depressive disorder, recurrent, moderate (principal); K21.9 Gastro-esophageal reflux disease without esophagitis; E03.9 Hypothyroidism, unspecified; R10.9 Unspecified abdominal pain
CPT/HCPCS: 99214

== ENCOUNTER 2022-11-01 14:06 | Outpatient (REF) | payer OTHER, SELFPAY ==
[2022-11-01 16:27] LABS: Thyroid Stimulating Hormone 0.32 uIU/mL (0.32-4.0)
[2022-11-01 16:32] LABS: Appearance Urine Clear; Color Urine Yellow; Glucose Urine UA Negative (Negative); Leukocyte Esterase Urine Negative (Negative); Nitrite Urine Negative (Negative); PH 5.5 (5.0-9.0); Specific Gravity - Urine 1.015 (1.005-1.025); Urine Blood Negative (Negative); Urine Ketones Negative (Negative); Urine Protein Negative (Neg-Trace)
== END 2022-11-01 14:07 | disposition home or self-care (01) ==
LOC: HO.LAB 14:06
PROVIDERS: PCP Internal Medicine; Visit Provider Internal Medicine
DX: E03.9 Hypothyroidism, unspecified (principal); R30.0 Dysuria
CPT/HCPCS: 36415; 81003; 84443

== ENCOUNTER 2022-11-21 14:18 | Outpatient (AMB) | payer OTHER, SELFPAY ==
--- NOTE | 2022-11-21 14:19 | A.OFFVIS_ITS ---
Intake Vital Signs 11/21/22 14:30 Height 5 ft 3 in Weight 156 lb BMI 27.6 BP 125/76 Blood Pressure Location Lt brachial Position Sitting Pulse 90 Intake Visit Reasons: Umbilical hernia Intake Note: Patient is seen in office for evaluation and treatment of an umbilical hernia. Patient c/o: feel a lump when turning side ways, onset for months, had prior surgery appendectomy, admits constipation, nausea, denies diarrhea, vomit, had i maging done Motorcycle Maker Required: No Accompanied by: Family/Other Allergies No Known Allergies Allergy (Verified 11/21/22 14:27) HPI HPI Comments History of Present Illness Details 77-year-old female patient presenting with complaints of upper abdominal discomfort and bloating. The discomfort is associated with nausea with occasional vomiting occurring 2-3 times per week. The nausea is not associated with the type of food that she eats. She recently visited the emergency department at which time a CT abdomen and pelvis was obtained. No explanation for the patient's abdominal pain was identified however she was noted to have an umbilical hernia. Review the CT reveals a small fat containing umbilical hernia without evidence of inflammation or fluid. She presents today to discuss possible repair of this umbilical hernia. She also has an appointment with gastroenterology next week for the same symptoms. [facility] Medical History VERA (acute kidney injury) B12 deficiency Chronic fatigue Dyslipidemia CLAYTON (generalized anxiety disorder) GERD (gastroesophageal reflux disease) Hypovitaminosis D Insomnia due to mental condition Long-term use of aspirin therapy Moderate recurrent major depression Osteopenia Urge urinary incontinence Surgical History History of appendectomy History of tubal ligation Family History Father CVD (cardiovascular disease) Mother Chronic mental illness Brother Lung cancer Family/Other FH: mental illness Social History Housing: House Alcohol intake: never Patient Tobacco Use Status: Current everyday Tobacco user Tobacco use type: Cigarette Cigarettes Per Day: 1 Years Smoked: 55 e-Cigarette/Vaping Use: Never Used Second Hand Smoke Exposure: No service: No Current occupational status: disabled Cognitive needs: Yes Hearing needs: No Vision needs: Yes Female Reproductive History Menstrual Age of Menarche: 17 Review of Systems Const All systems reviewed & are unremarkable except as noted in HPI and below GI Reports as per HPI, Reports abdominal pain, Reports bloating, Reports nausea, Reports vomiting and Denies hematemesis Physical Exam Vital Signs: Last Vital Signs Pulse 90 11/21/22 14:30 BP 125/76 11/21/22 14:30 BMI result Body Mass Index 27.6 Const General: cooperative and no acute distress Nutritional Appearance: well nourished Orientation/consciousness: patient oriented x3 Limitations: no limitations HEENT Head: Yes normocephalic and Yes atraumatic Ears: hearing grossly normal bilaterally Resp Effort & Inspection: normal respiratory effort, no audible wheezes, no cough and no respiratory distress Cardio Jugular venous distension: no JVD GI Inspection: Yes normal to inspection Palpation (GI): Soft to palpation, Tenderness to palpation present (GI) in the LUQ and in the RUQ; Garrido's sign negative, with no rebound tenderness and Rovsing's sign negative, no guarding and not rigid Percussion: Yes normal to percussion Rectal Exam - Female: deferred Skin Other: Warm, dry, no rash Neuro General: patient oriented x3 Extrem General: Yes no clubbing, cyanosis or edema Assessment & Plan Assessment & Plan (1) Umbilical hernia: Code(s): K42.9 - Umbilical hernia without obstruction or gangrene Plan 77-year-old female patient presenting for evaluation of an umbilical hernia. On examination the patient has and almost imperceptible umbilical hernia which on CT contains only fat. This may be a congenital umbilical hernia does not seem to be the cause of her abdominal pain. Examination also reveals tenderness in the upper abdomen which is nonfocal. I do not feel repairing the umbilical hernia will improve her upper abdominal symptoms and suggested she wait the Gastroenterology visit. She expressed understanding and agrees with the plan. She should follow up as needed. Coding Level of Care Code New Pt Level 4 (52028) Diagnoses Umbilical hernia K42.9
[2022-11-21 14:30] VITALS: BP 125/76; PULSE 90; BMI 27.6
== END 2022-11-21 14:55 | disposition home or self-care (01) ==
PROVIDERS: PCP Internal Medicine; Referring Provider Internal Medicine; Visit Provider Surgery
DX: K42.9 Umbilical hernia without obstruction or gangrene (principal)
CPT/HCPCS: 99204

== ENCOUNTER → 2022-11-21 14:18 | Outpatient (BNVA) | payer OTHER, SELFPAY | PROVIDERS: PCP Internal Medicine; Referring Provider Internal Medicine; Visit Provider Surgery ==

== ENCOUNTER 2022-12-25 14:05 | Outpatient (AMB) | payer OTHER, SELFPAY ==
--- NOTE | 2022-12-25 14:06 | MHC.PC.OV ---
Vital Signs 12/25/22 14:08 Height 5 ft 3 in Weight 158 lb 8 oz BMI 28.1 BP 90/62 Blood Pressure Location Lt brachial Position Sitting Intake Visit Reasons: Lumbar pain Intake Note: Patient is here to follow up on lower back pain, difficulties urination and shortness of breath, some burning when urination, urgency not little to nothing comes out. Music Internship Required: Yes Music Internship Language: Supervisor [employer] Name: Partha (american studies professor) Information Interpreted: non-clinical & clinical Engineering Mechanic: Present Accompanied by: american studies professor Allergies No Known Allergies Allergy (Verified 12/25/22 14:46) Medication List - Last Reconciled 12/25/22 by MIRZA Nava aspirin 81 mg PO DAILY 90 days atorvastatin 40 mg PO BEDTIME 90 days cane As directed cholecalciferol (vitamin D3) 50 mcg PO DAILY 90 days dicyclomine 20 mg PO TID disposable gloves (Biobrane Gloves Medium) As directed docusate calcium 240 mg PO BID PRN 90 days escitalopram oxalate 10 mg PO DAILY 90 days ferrous sulfate 325 mg PO DAILY 90 days folic acid 1 mg PO DAILY 90 days incontinence pad, liner, disp (Affirm Pads) As directed levothyroxine 88 mcg PO DAILY 90 days lidocaine 4% (Aspercreme (lidocaine)) 3 patches topical DAILY PRN lisinopril 40 mg PO DAILY 90 days [mattress topper As directed] nitrofurantoin monohyd/m-cryst 100 mg (Macrobid) 100 mg PO Q12H 5 days omeprazole 40 mg PO DAILY 90 days tamsulosin (Flomax) 0.4 mg PO DAILY tobramycin 0.3% 1 drp ophthalmic (eye) Q4H 5 days tramadol 50 mg PO BID PRN 30 days underpads (Certainty Underpads) As directed [wipes As directed] zolpidem ER 12.5 mg PO BEDTIME PRN 30 days Tobacco use date assessed: 12/25/22 Fall risk assessment: No Falls in past year Last assessed Fall Risk: 12/25/22 Dental Screening Dental Screen Date: 12/25/22 Did you have a dental visit in the last 12 months?: Yes Did you have a dental problem in the last 6 months where you did not have access to dental care?: No Was dental information given to patient?: Patient has dentist HPI HPI Comments History of Present Illness Details 77-year-old female past medical history significant for GERD, hypertension, hypercholesterol, depression, anxiety, hypothyroid, B12 deficiency and lumbar degenerative disc disease. Patient Dr. Klein last seen in patient presents today for Low back pain, difficulty urinating, urinary frequency Right sided flank pain x 2 weeks, voiding small amounts, burning with urination. Patient reports fevers unknown when last had one. Isaac nausea,vomiting. Urinalysis completed office shows + blood PFSH Medical History (Updated 12/25/22 @ 14:49 by MIRZA Nava) Hypovitaminosis D B12 deficiency Insomnia due to mental condition CLAYTON (generalized anxiety disorder) Moderate recurrent major depression Dyslipidemia GERD (gastroesophageal reflux disease) VERA (acute kidney injury) Urge urinary incontinence Chronic fatigue Osteopenia Long-term use of aspirin therapy Surgical History (Updated 12/25/22 @ 14:18 by CARLITA Dorantes) History of cervical biopsy History of tubal ligation History of appendectomy Family History Father CVD (cardiovascular disease) Mother Chronic mental illness Brother Lung cancer Family/Other FH: mental illness Social History (Updated 12/25/22 @ 14:17 by CARLITA Dorantes) Housing: House Alcohol intake: never Patient Tobacco Use Status: Current everyday Tobacco user Tobacco use type: Cigarette Cigarettes Per Day: 4 Years Smoked: 55 Packs per year/per ci.00 e-Cigarette/Vaping Use: Never Used Second Hand Smoke Exposure: No service: No Current occupational status: disabled Cognitive needs: Yes Hearing needs: No Vision needs: Yes Female Reproductive History Menstrual Age of Menarche: 17 Questionnaire Thrive Questionnaire Date Thrive assessed: 07/13/22 CLAYTON-7 AMB Questionnaire CLAYTON-7 Date CLAYTON - 7 assessed: 07/13/22 Source: Developed by Drs. Flash Hackett, Iraida Dang, Osmani Weaver and colleagues, with an educational yordan from [employer]. Review of Systems Const Denies chills, Denies fatigue, Denies fever(s) and Denies poor appetite Eyes Denies no additional complaints ENT Reports Normal hearing present Card Denies chest pain, Denies syncope, Denies rapid heart rate and Denies dyspnea Resp Denies cough and Denies dyspnea GI Denies change in stool character, Denies constipation, Denies diarrhea, Denies nausea and Denies vomiting Denies urinary frequency, Denies dysuria and Denies urinary urgency Skin/Breast Reports other (right flank pain ) Neuro Reports Normal hearing present, Denies confusion and Denies syncope Psych Denies confusion Endo Denies fatigue Physical exam (Primary Care) Vital Signs: Last Vital Signs BP 90/62 12/25/22 14:08 BMI result Body Mass Index 28.1 Tobacco/Smoking Status: Tobacco use Status Tobacco use date assessed 12/25/22 12/25/22 14:20 Patient Tobacco Use Status Current everyday Tobacco 12/25/22 14:20 Tobacco use type Cigarette 12/25/22 14:20 e-Cigarette/Vaping Use Never Used 12/25/22 14:20 Thrive Assessment: Date of Thrive Assessment Date Thrive assessed 07/13/22 12/25/22 14:20 Const General: No confusion Orientation/consciousness: No confusion HENMT Head: Yes normocephalic and Yes atraumatic Eyes Conjunctivae: conjunctivae normal Chest Chest palpation & inspection: normal inspection of the chest Resp Effort & Inspection: normal respiratory effort Auscultation: clear to auscultation bilaterally, no crackles, no rhonchi and no wheezes Cardio Rate: regular rate Rhythm: regular rhythm Heart sounds: S1 normal heart sound present and S2 normal heart sound present GI Inspection: Yes normal to inspection General: Yes CVA tenderness (Right sided CVA tenderness. ) Back/Spine/Pelvis Back: CVA tenderness (Right sided CVA tenderness. ) Neuro General: No confusion Cranial nerves: Yes Normal hearing present Extrem General: No edema Results AMB Urinalysis, Automated UA Leukoctes 0 Rocael/uL Last Edit by CARLITA Dorantes on 12/25/22 14:29 UA Nitrite Negative Last Edit by CARLITA Dorantes on 12/25/22 14:29 UA Urobilinogen 0 mg/dL Last Edit by CARLITA Dorantes on 12/25/22 14:29 UA Protein 0 mg/dL Last Edit by CARLITA Dorantes on 12/25/22 14:29 UA pH 6.0 Last Edit by CARLITA Dorantes on 12/25/22 14:29 UA Blood 1 Jb/uL Last Edit by Yash Oliver A on 12/25/22 14:29 UA Specific [place] 1.015 Last Edit by Yash Oliver A on 12/25/22 14:29 UA Ketone Negative Last Edit by Yash Oliver A on 12/25/22 14:29 UA Bilirubin 0 mg/dL Last Edit by Yash Oliver A on 12/25/22 14:29 UA Glucose 0 mg/dL Last Edit by Yash Oliver A on 12/25/22 14:29 Results Reviewed Results Reviewed: Laboratory Last Values Urine pH (Auto) 6.0 12/25/22 14:22 Specific [place] (Auto) 1.015 12/25/22 14:22 Urine Protein (Auto) 0 mg/dL 12/25/22 14:22 Glucose (UA)(Auto) 0 mg/dL 12/25/22 14:22 Urine Ketones (Auto) Negative 12/25/22 14:22 Urine Blood (Auto) 1 Jb/uL 12/25/22 14:22 Urine Nitrite (Auto) Negative 12/25/22 14:22 Urine Bilirubin (Auto) 0 mg/dL 12/25/22 14:22 Urine Urobilinogen (Auto) 0 mg/dL 12/25/22 14:22 Leukocyte Esterase (Auto) 0 Rocael/uL 12/25/22 14:22 Assessment and Plan Assessment & Plan (1) Rt flank pain: Code(s): R10.9 - Unspecified abdominal pain Plan: Given patient's urine positive for blood in office today possible right-sided kidney stone, urgent abdominal ultrasound and bladder ordered to further evaluate. Patient advised to increase p.o. water intake and Flomax prescribed daily x7 days to help patient pass stone. Patient reports previous history of EVRA states was seen by Nephrology x1 however she did not continue to follow up with him CMP and CBC ordered. (2) Dysuria: Code(s): R30.0 - Dysuria Plan: Given patient experiencing dysuria will cover with Macrobid x5 days and send urine out for culture. Plan Keep scheduled follow-up with PCP or follow-up sooner needed. Orders: Orders Comprehensive [place]. Panel Fast Today R10.9 - Unspecified abdominal pain US bladder Today R10.9 - Unspecified abdominal pain AMB Urinalysis Automated Today Z13.9 - Encounter for screening, unspecified Complete Blood Count Auto Diff Today Z13.0 - Encounter for screening for diseases of the blood and blood-forming organs and certain disorders involving the immune mechanism US renal BI Today R10.9 - Unspecified abdominal pain Urine Culture Today R10.9 - Unspecified abdominal pain, R30.0 - Dysuria Medications: New tamsulosin (Flomax) 0.4 mg PO DAILY 7 caps 0RF nitrofurantoin monohyd/m-cryst 100 mg (Macrobid) must administer with a meal/food 100 mg PO Q12H 10 caps 0RF 5 days Refilled lisinopril 40 mg PO DAILY 90 tabs 3RF 90 days cholecalciferol (vitamin D3) 50 mcg PO DAILY 90 caps 1RF 90 days E55.9 - Vitamin D deficiency, unspecified tramadol 50 mg PO BID PRN 60 tabs 0RF pain 30 days zolpidem ER 12.5 mg PO BEDTIME PRN 30 tabs 0RF insomnia 30 days Coding Level of Care Code Est Pt Level 3 (59143) Diagnoses Rt flank pain R10.9 Dysuria R30.0
[2022-12-25 14:08] VITALS: BP 90/62; BMI 28.1
== END 2022-12-25 15:05 | disposition home or self-care (01) ==
PROVIDERS: PCP Internal Medicine; Visit Provider Nurse Practitioner Family
DX: R10.9 Unspecified abdominal pain (principal); R30.0 Dysuria
CPT/HCPCS: 81003; 99213

== ENCOUNTER 2022-12-25 14:52 | Outpatient (REF) | payer OTHER, SELFPAY ==
[2022-12-25 15:04] LABS: MANUAL DIFF FLAG NO
[2022-12-25 16:27] LABS: Basophils Absolute Auto 0.1 X10*3/uL (0.0-0.2); Basophils Percent Auto 1.1 % (0-2); Eosinophils Absolute Auto 0.2 X10*3/uL (0.0-0.4); Eosinophils Percent Auto 2.7 % (0-4); Hematocrit 35.4 % (37.0-47.0); Hemoglobin 11.6 g/dl (12.0-16.0); Imm Gran Abs Auto 0.01 X10*3/uL (0.00-0.03); Imm Gran Pct Auto 0.2 % (0.0-0.4); Lymphocytes Absolute Auto 1.8 X10*3/uL (1.2-4.9); Lymphocytes Percent Auto 31.8 % (20-40); Mean Corpuscular HGB Conc 32.8 g/dl (31.0-35.0); Mean Corpuscular Volume 94.7 fL (80.0-98.0); Mean Platelet Volume 10.2 fL (9.4-12.3); Monocytes Absolute Auto 0.5 X10*3/uL (0.1-1.2); Monocytes Percent Auto 8.3 % (2-11); Neutrophils Absolute Auto 3.2 x10*3/uL (2.0-8.3); Neutrophils Percent Auto 55.9 % (45-73); Platelet Count 232 X10*3/uL (160-400); Red Blood Count 3.74 X10*6/uL (4.20-5.50); Red Cell Distribution Width 13.9 % (11.0-16.0); White Blood Count 5.6 X10*3/uL (4.8-10.8)
[2022-12-25 17:00] LABS: Alanine Aminotransferase 32 U/L (0-31); Albumin Level 4.2 g/dL (3.5-5.0); Alkaline Phosphatase 89 U/L (39-117); Anion Gap 15 (12-20); Aspartate Amino Transferase 26 U/L (5-31); Bilirubin Total 0.3 mg/dL (0.0-1.0); Blood Urea Nitrogen 19 mg/dL (9-16); Calcium 9.9 mg/dL (8.4-10.2); Carbon Dioxide 23 mmol/L (22-29); Chloride 109 mmol/L (96-108); Estimated Glomerular Filt Rate 39; Glucose Fasting 134 mg/dL (60-99); Potassium 4.1 mmol/L (3.3-5.1); Sodium 143 mmol/L (135-145)
[2022-12-25 17:17] LABS: Thyroid Stimulating Hormone 0.55 uIU/mL (0.32-4.0)
== END 2022-12-25 14:53 | disposition home or self-care (01) ==
LOC: HO.LAB 14:52
PROVIDERS: PCP Internal Medicine; Visit Provider Nurse Practitioner Family
DX: Z13.0 Encounter for screening for diseases of the blood and blood-forming organs and certain disorders involving the immune mechanism (principal); R10.9 Unspecified abdominal pain; E03.9 Hypothyroidism, unspecified
CPT/HCPCS: 36415; 80053; 84443; 85025; 87086

== ENCOUNTER 2023-01-12 14:10 | Outpatient (REF) | payer OTHER, SELFPAY ==
--- NOTE | ~2023-01-12 | US_ITS ---
EXAMINATION: US RETROPERITONEAL COMPLETE (RENAL) CLINICAL INFORMATION: Abdominal pain. COMPARISON: Ultrasound of kidneys on 12/10/2020 TECHNIQUE: Real-time imaging of the kidneys and bladder. FINDINGS: RIGHT KIDNEY: 5.4 x 4.6 x 4.2 cm (SAG x AP x TRV). The kidney is normal in size, contour, and echogenicity. Renal cortical thickness is normal. No calculi or focal parenchymal lesions. No hydronephrosis. LEFT KIDNEY: 9.5 x 4.1 x 4.1 cm (SAG x AP x TRV). The kidney is normal in size, contour, and echogenicity. Renal cortical thickness is normal. No calculi. No hydronephrosis. Hypoechoic simple cyst is seen in upper left renal pole measuring 2.1 x 2.1 x 1.4 cm in size (previously 1.9 x 1.6 x 1.5 cm). BLADDER: Well distended and normal. Bilateral ureteral jets are demonstrated. Prevoid bladder volume is 161 mL. Postvoid bladder volume is 8.6 mL. US/US retroperitoneal comp IMPRESSION: 1. Interval slight increase in size of the left upper renal pole simple cyst, for which no follow up imaging is recommended. 2. Unchanged no evidence of hydronephrosis. 3. Normal sonographic appearance of urinary bladder and patent bilateral ureters are demonstrated. No evidence of urine retention.
== END 2023-01-12 14:11 | disposition home or self-care (01) ==
LOC: HO.US 14:10
PROVIDERS: PCP Internal Medicine; Visit Provider Nurse Practitioner Family
DX: R30.0 Dysuria (principal)
CPT/HCPCS: 76770

== ENCOUNTER 2023-01-31 14:05 | Outpatient (REF) | payer OTHER, SELFPAY | END 2023-01-31 14:06 | disposition home or self-care (01) | LOC: HO.LNP 14:05 | PROVIDERS: PCP Internal Medicine; Visit Provider Obstetrics & Gynecology | DX: N90.4 Leukoplakia of vulva (principal) | CPT/HCPCS: 56605; 56606; 88305; 88312 ==

== ENCOUNTER 2023-01-31 14:05 | Outpatient (AMB) | payer OTHER, SELFPAY ==
--- NOTE | 2023-01-31 14:14 | A.OFFVIS_ITS ---
Intake Vital Signs 01/31/23 14:20 Height 5 ft 3 in Weight 156 lb 8.451 oz BMI 27.7 BP 126/74 Intake Visit Reasons: Vulva BX/DO NOT RS Beautician Apprentice Required: Yes Beautician Apprentice Language: Gas Station Service Attendant Name: Martha ZAZUETA Information Interpreted: non-clinical & clinical Washer Assembler: Washer Assembler Present (Martha Dannie ZAZUETA) Accompanied by: Self / Same As Patient Allergies No Known Allergies Allergy (Verified 01/31/23 14:22) Post menopausal: Yes PFSH Medical History (Updated 12/25/22 @ 14:49 by MIRZA Nava) Hypovitaminosis D B12 deficiency Insomnia due to mental condition CLAYTON (generalized anxiety disorder) Moderate recurrent major depression Dyslipidemia GERD (gastroesophageal reflux disease) VERA (acute kidney injury) Urge urinary incontinence Chronic fatigue Osteopenia Long-term use of aspirin therapy Surgical History (Updated 12/25/22 @ 14:18 by CARLITA Dorantes) History of cervical biopsy History of tubal ligation History of appendectomy Family History Father CVD (cardiovascular disease) Mother Chronic mental illness Brother Lung cancer Family/Other FH: mental illness Social History (Updated 12/25/22 @ 14:17 by CARLITA Dornates) Housing: House Alcohol intake: never Patient Tobacco Use Status: Current everyday Tobacco user Tobacco use type: Cigarette Cigarettes Per Day: 4 Years Smoked: 55 e-Cigarette/Vaping Use: Never Used Second Hand Smoke Exposure: No service: No Current occupational status: disabled Cognitive needs: Yes Hearing needs: No Vision needs: Yes Female Reproductive History Menstrual Age of Menarche: 17 Physical Exam Vital Signs: Last Vital Signs BP 126/74 01/31/23 14:20 BMI result Body Mass Index 27.7 Office Procedures RESOURCE PROTECTION SPECIALIST Biopsy Before the procedure was started d/w patient the procedure, alternatives ( do nothing, medical rx), & all the risks associated with the procedure ( bleeding , infection, vulvar scarring, painful intercourse, injury to vessels, possible need for transfusion with all its risks) then patient signed the consent. 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 3 cc of lidocaine was used for anesthesia at the Right and left labia majora leukoplakias area ; using punch biopsy forceps and pickup the Right and left labia majora leukoplakias was biopsy. Pressure was used for hemostasis. The patient tolerated the procedure well. Discharge Instructions: The patient was instructed to schedule an appointment in 2 weeks for follow-up and to call if temp>100.4, area of the biopsy redness or pain, nausea/vomiting. This note was generated with a voice recognition program. Some errors may have been overlooked during the review of this note. Sometimes these errors may affect the content or meaning of a given sentence. 43524-[id number] of Vulva/Perineum Procedure code (CPT) selection complete Assessment & Plan Assessment & Plan Orders: Orders AMB RESOURCE PROTECTION SPECIALIST Biopsy Today N90.4 - Leukoplakia of vulva Coding Level of Care Code Procedure Only CPT Codes RESOURCE PROTECTION SPECIALIST Biopsy - CPT: 34791-Mgfdtn of Vulva/Perineum ([id number])
[2023-01-31 14:20] VITALS: BP 126/74; BMI 27.7
== END 2023-01-31 15:17 | disposition home or self-care (01) ==
PROVIDERS: PCP Internal Medicine; Visit Provider Obstetrics & Gynecology
DX: N90.4 Leukoplakia of vulva (principal)
CPT/HCPCS: 56605; 56606

== ENCOUNTER 2023-03-06 13:40 | Outpatient (AMB) | payer OTHER, SELFPAY ==
--- NOTE | 2023-03-06 13:42 | MHC.PC.OV ---
Vital Signs 03/06/23 13:46 03/06/23 14:26 Height 5 ft 3 in Weight 159 lb BMI 28.2 BP 142/84 H 140/80 H Blood Pressure Location Lt brachial Lt brachial Position Sitting Sitting Intake Visit Reasons: 4 month f/u Intake Note: Patient here for a 4 month follow up Director Inbound Sales Required: No Accompanied by: FINAL INSPECTION SUPERVISOR Allergies No Known Allergies Allergy (Verified 03/06/23 13:54) Medication List - Last Reconciled 03/06/23 by Jocy Lino MD aspirin 81 mg PO DAILY 90 days atorvastatin 40 mg PO BEDTIME 90 days cane As directed cholecalciferol (vitamin D3) 50 mcg PO DAILY 90 days disposable gloves (Biobrane Gloves Medium) As directed docusate calcium 240 mg PO BID PRN 90 days escitalopram oxalate 10 mg PO DAILY 90 days ferrous sulfate 325 mg PO DAILY 90 days folic acid 1 mg PO DAILY 90 days incontinence pad, liner, disp (Affirm Pads) As directed levothyroxine 88 mcg PO DAILY 90 days lidocaine 4% (Aspercreme (lidocaine)) 3 patches topical DAILY PRN lisinopril 40 mg PO DAILY 90 days [mattress topper As directed] omeprazole 40 mg PO DAILY 90 days tamsulosin (Flomax) 0.4 mg PO DAILY tobramycin 0.3% 1 drp ophthalmic (eye) Q4H 5 days tramadol 50 mg PO BID PRN 30 days underpads (Certainty Underpads) As directed [wipes As directed] zolpidem ER 12.5 mg PO BEDTIME PRN 30 days Tobacco use date assessed: 12/25/22 Dental Screening Dental Screen Date: 03/06/23 Did you have a dental visit in the last 12 months?: No Did you have a dental problem in the last 6 months where you did not have access to dental care?: No Was dental information given to patient?: Patient has dentist HPI HPI Comments History of Present Illness Details This is a 78-year-old female with hypertension, pure hypercholesterolemia, moderate recurrent major depression, hypothyroidism and insomnia due to mental illness that comes today for follow-up on her conditions. Blood pressure normal to elevated and she took lisinopril last night. Lipid panel will be order. Depression somewhat stable with escitalopram. Last TSH was normal. Still has insomnia with zolpidem extended release 12.5 mg at bedtime and takes 2 tablets which I have recommended in the past to not do this and follow instructions. I advised to see a psychiatrist for insomnia and she refused. She is accompanied by FINAL INSPECTION SUPERVISOR. She keeps insisting needing protein shakes for her appetite which I advised that she does not need any protein shakes or caloric supplements. She in fact has a BMI of 28.2 which points to overweight and needs to lose weight. She told me that she has big bones and does not eat. She has insisted in protein shakes and 2 tablets of zolpidem extended release 12.5 mg daily in every office visit for the past year. She said the protein shakes were approved but she does not remember the name therefore I cannot even order it today even though I think she does not need this. [facility] Medical History (Updated 03/06/23 @ 14:27 by Jocy Lino MD) Hypovitaminosis D B12 deficiency Insomnia due to mental condition CLAYTON (generalized anxiety disorder) Moderate recurrent major depression Dyslipidemia GERD (gastroesophageal reflux disease) VERA (acute kidney injury) Urge urinary incontinence Chronic fatigue Osteopenia Long-term use of aspirin therapy Surgical History History of cervical biopsy History of tubal ligation History of appendectomy Family History Father CVD (cardiovascular disease) Mother Chronic mental illness Brother Lung cancer Family/Other FH: mental illness Social History Housing: House Alcohol intake: never Patient Tobacco Use Status: Current everyday Tobacco user Tobacco use type: Cigarette Cigarettes Per Day: 4 Years Smoked: 55 e-Cigarette/Vaping Use: Never Used Second Hand Smoke Exposure: No service: No Current occupational status: disabled Cognitive needs: Yes Hearing needs: No Vision needs: Yes Female Reproductive History Menstrual Age of Menarche: 17 Questionnaire Thrive Questionnaire Date Thrive assessed: 07/13/22 CLAYTON-7 AMB Questionnaire CLAYTON-7 Date CLAYTON - 7 assessed: 07/13/22 Source: Developed by Drs. Flash Hackett, Iraida Dang, Osmani Weaver and colleagues, with an educational yordan from [employer]. Review of Systems Const All systems reviewed & are unremarkable except as noted in HPI and below Eyes Reports no additional complaints, Denies change in vision and Denies other visual disturbances Card Denies chest pain at rest, Denies chest pain with activity, Denies edema, Denies irregular heart rhythm, Denies claudication, Denies dyspnea, Denies dyspnea on exertion, Denies orthopnea, Denies paroxysmal nocturnal dyspnea and Denies slow heart rate Resp Denies cough, Denies dyspnea and Denies dyspnea on exertion GI Denies abdominal pain, Denies change in bowel habits, Denies excessive flatus, Denies nausea and Denies vomiting Denies urinary incontinence, Denies urinary hesitancy and Denies urinary urgency Musc Denies abnormal gait, Denies atrophy, Denies deformity and Denies limited range of motion Skin/Breast Denies bleeding lesions, Denies changing lesions and Denies rash Neuro Denies abnormal gait, Denies behavioral changes and Denies lack of coordination Psych Denies behavioral changes Physical exam (Primary Care) Vital Signs: Last Vital Signs BP 142/84 H 03/06/23 13:46 BMI result Body Mass Index 28.2 Tobacco/Smoking Status: Tobacco use Status Tobacco use date assessed 12/25/22 03/06/23 13:45 Patient Tobacco Use Status Current everyday Tobacco 03/06/23 13:45 Tobacco use type Cigarette 03/06/23 13:45 e-Cigarette/Vaping Use Never Used 03/06/23 13:45 Thrive Assessment: Date of Thrive Assessment Date Thrive assessed 07/13/22 03/06/23 13:45 Eyes General: appearance normal, both eyes and all related structures Eyelids: Yes eyelids normal Conjunctivae: conjunctivae normal Neck Neck: Yes normal visual inspection and Yes supple Resp Effort & Inspection: normal respiratory effort Auscultation: clear to auscultation bilaterally Cardio Jugular venous distension: no JVD Rate: regular rate Rhythm: regular rhythm Heart sounds: S1 normal heart sound present and S2 normal heart sound present Extrem General: Yes full ROM Office Procedures Flu Questionnaire Does the patient have a severe egg allergy?: No Immunizations flu vacc [id number] 6mos up(PF) 60 mcg(15 mcgx4)/0.5 mL IM syringe Performing Provider: Jocy Lino MD [facility] Documented (not given) by: CARLITA Hankins on 03/06/23 13:50 Reason Not Given: Patient Refused Assessment and Plan Assessment & Plan (1) HTN (hypertension), benign: Code(s): I10 - Essential (primary) hypertension Plan: Continue lisinopril. Blood pressure goal is equal or less than 130/80. (2) Pure hypercholesterolemia: Code(s): E78.00 - Pure hypercholesterolemia, unspecified Plan: Continue statins. (3) Moderate recurrent major depression: Code(s): F33.1 - Major depressive disorder, recurrent, moderate Plan: Continue escitalopram. (4) Hypothyroid: Code(s): E03.9 - Hypothyroidism, unspecified Qualifiers: Hypothyroidism type: unspecified Qualified Code(s): E03.9 - Hypothyroidism, unspecified Plan: Continue levothyroxine. (5) Insomnia due to mental condition: Code(s): F51.05 - Insomnia due to other mental disorder Plan: Be compliant with zolpidem extended release 12.5 mg once a day. I have told her multiple times to take 1 tablet instead of 2 tablets. She declines psychiatry referral. Orders: Orders Influenza [id number] Immunization Today Z23 - Encounter for immunization Comprehensive [place]. Panel Fast Today I10 - Essential (primary) hypertension Complete Blood Count Auto Diff Today D64.9 - Anemia, unspecified Vitamin D 25-OH Total Today E55.9 - Vitamin D deficiency, unspecified Lipid Panel Today E78.5 - Hyperlipidemia, unspecified IRON PROFILE Today D64.9 - Anemia, unspecified Coding Level of Care Code Est Pt Level 4 (95553) Diagnoses HTN (hypertension), benign I10 Pure hypercholesterolemia E78.00 Moderate recurrent major depression F33.1 Hypothyroidism, unspecified type E03.9 Hypothyroidism type: unspecified Insomnia due to mental condition F51.05 Time Spent (min) 23
[2023-03-06 13:46] VITALS: BP 142/84; BMI 28.2
[2023-03-06 14:26] VITALS: BP 140/80
== END 2023-03-06 14:03 | disposition home or self-care (01) ==
PROVIDERS: PCP Internal Medicine; Visit Provider Internal Medicine
DX: I10 Essential (primary) hypertension (principal); E78.00 Pure hypercholesterolemia, unspecified; F33.1 Major depressive disorder, recurrent, moderate; E03.9 Hypothyroidism, unspecified; F51.05 Insomnia due to other mental disorder
CPT/HCPCS: 99214

== ENCOUNTER 2023-05-15 13:38 | Outpatient (AMB) | payer OTHER, SELFPAY ==
--- NOTE | 2023-05-15 13:40 | A.OFFVIS_ITS ---
Intake Vital Signs 05/15/23 13:42 Height 5 ft 3 in Weight 154 lb 12.232 oz BMI 27.4 BP 151/87 H Blood Pressure Location Lt brachial Position Sitting Pulse 60 Intake Visit Reasons: abdominal pain Intake Note: Patient presents for an assessment for abdominal pain. Patient c/o; reports constipation, reports abdominal pain, report taking milk of mag x2 daily, reports GERD. Lining Stuffer Required: Yes Lining Stuffer Name: pt declined certified court/medical interpreter Accompanied by: Other Relationship Allergies No Known Allergies Allergy (Verified 05/15/23 13:49) Medication List - Last Reconciled 05/15/23 by Grace Goetz PA-C aspirin 81 mg PO DAILY 90 days atorvastatin 40 mg PO BEDTIME 90 days cane As directed cholecalciferol (vitamin D3) 50 mcg PO DAILY 90 days disposable gloves (Biobrane Gloves Medium) As directed docusate calcium 240 mg PO BID PRN 90 days escitalopram oxalate 10 mg PO DAILY 90 days ferrous sulfate 325 mg PO DAILY 90 days folic acid 1 mg PO DAILY 90 days incontinence pad, liner, disp (Affirm Pads) As directed levothyroxine 88 mcg PO DAILY 90 days lidocaine 4% (Aspercreme (lidocaine)) 3 patches topical DAILY PRN lisinopril 40 mg PO DAILY 90 days [mattress topper As directed] omeprazole 40 mg PO DAILY 90 days tobramycin 0.3% 1 drp ophthalmic (eye) Q4H 5 days tramadol 50 mg PO BID PRN 30 days underpads (Certainty Underpads) As directed [wipes As directed] zolpidem ER 12.5 mg PO BEDTIME PRN 30 days HPI HPI Comments History of Present Illness Details A 78-year-old female referred for abdominal pain, GERD, constipation- she declined certified court/medical interpreter Adult family member present to interpret- g. son/ integrated circuit design engineer Omeprazole 40 mg for years- not great in symptom control-unable to identify anyt desiree specific Appetite not great-random- non specific abdominal pain- ( CT- 09/2022- no findings) Dark stools- takes pepto bismol No nausea, vomiting hematemesis, hematochezia fever or chills. No weight loss PFSH Medical History Hypovitaminosis D B12 deficiency Insomnia due to mental condition CLAYTON (generalized anxiety disorder) Moderate recurrent major depression Dyslipidemia GERD (gastroesophageal reflux disease) VERA (acute kidney injury) Urge urinary incontinence Chronic fatigue Osteopenia Long-term use of aspirin therapy Surgical History History of cervical biopsy History of tubal ligation History of appendectomy Family History Father CVD (cardiovascular disease) Mother Chronic mental illness Brother Lung cancer Family/Other FH: mental illness Social History Housing: House Alcohol intake: never Patient Tobacco Use Status: Current everyday Tobacco user Tobacco use type: Cigarette Cigarettes Per Day: 4 Years Smoked: 55 e-Cigarette/Vaping Use: Never Used Second Hand Smoke Exposure: No service: No Current occupational status: disabled Cognitive needs: Yes Hearing needs: No Vision needs: Yes Female Reproductive History Menstrual Age of Menarche: 17 Review of Systems Const All systems reviewed & are unremarkable except as noted in HPI and below Card Denies chest pain and Denies dyspnea Resp Denies dyspnea GI Denies abdominal pain, Denies hematochezia, Reports heartburn, Reports nausea and Denies vomiting Psych Reports anxiety and Reports depression Physical Exam Vital Signs: Last Vital Signs Pulse 60 05/15/23 13:42 BP 151/87 H 05/15/23 13:42 BMI result Body Mass Index 27.4 Const General: cooperative, healthy appearing, comfortable, no acute distress and anxious Orientation/consciousness: patient oriented x3 Limitations: language barrier and ambulation with cane Eyes Sclerae: sclerae normal Resp Effort & Inspection: normal respiratory effort and able to speak in complete sentences Auscultation: no rales, no rhonchi, no wheezes and diminished lung sounds Cardio Rate: regular rate Rhythm: regular rhythm Heart sounds: S1 normal heart sound present and S2 normal heart sound present GI Palpation (GI): Soft to palpation and nontender Auscultation: normal bowel sounds Skin General skin exam: no rashes or lesions noted Neuro General: patient oriented x3 Psych Appearance: grossly normal and well kempt Mental Status: mental status grossly normal Speech and movement: Normal speech and movement present Affect: normal affect Attitude: cooperative Thought process: Normal thought process present Results Reviewed Results Reviewed: CT/CT abdomen pelvis wo IV con IMPRESSION: A cause for the patient's lower abdominal pain has not been found. Incidental findings as described above. Assessment & Plan Assessment & Plan (1) GERD (gastroesophageal reflux disease): Code(s): K21.9 - Gastro-esophageal reflux disease without esophagitis (2) Colon cancer screening: Comment: Diffuse nonspecific abdominal pain-physical exam unremarkable-may have functiona l component Code(s): Z12.11 - Encounter for screening for malignant neoplasm of colon (3) GERD (gastroesophageal reflux disease): Code(s): K21.9 - Gastro-esophageal reflux disease without esophagitis Qualifiers: Esophagitis presence: esophagitis presence not specified Qualified Code(s): K21.9 - Gastro-esophageal reflux disease without esophagitis Plan EGD/ colon MG prep Orders: Orders EGD/[place] Combo - GI Use Only 05/15/23 K21.9 - Gastro-esophageal reflux disease without esophagitis Medications: New polyethylene glycol 3350 (Miralax) Take as directed by mouth the day before your procedure. 238 grams PO ONCE 238 grams 0RF laxative effect 1 day bisacodyl (Dulcolax (bisacodyl)) Day before procedure @ 12 noon Take 4 tablets by mouth followed by large glass of water 20 mg (4 x 5 mg) PO ONCE PRN 4 tabs 0RF colonoscopy prep 1 day Z12.11 - Encounter for screening for malignant neoplasm of colon pantoprazole 40 mg PO DAILY 30 tabs 5RF 30 days Patient Instructions: EGD colonoscopy Discussed procedures, rare risks need for escorted due to anesthesia MiraLax Gatorade, reviewed and literature given- Reflux precautions Continue usual medications Coding Level of Care Code Est Pt Level 4 (54734) Diagnoses GERD (gastroesophageal reflux disease) K21.9 Colon cancer screening Z12.11 Time Spent (min) 30 Comment integrated circuit design engineer/grandson certified court/medical interpreter
[2023-05-15 13:42] VITALS: BP 151/87; PULSE 60; BMI 27.4
== END 2023-05-15 15:06 | disposition home or self-care (01) ==
PROVIDERS: PCP Internal Medicine; Visit Provider Physician Assistant
DX: K21.9 Gastro-esophageal reflux disease without esophagitis (principal); Z12.11 Encounter for screening for malignant neoplasm of colon
CPT/HCPCS: 99214

== ENCOUNTER → 2023-05-15 13:38 | Outpatient (BNVA) | payer OTHER, SELFPAY | PROVIDERS: PCP Internal Medicine; Visit Provider Physician Assistant | DX: Z12.11 Encounter for screening for malignant neoplasm of colon (principal); K21.9 Gastro-esophageal reflux disease without esophagitis | CPT/HCPCS: 99212 ==

== ENCOUNTER 2023-05-23 15:07 | Outpatient (AMB) | payer OTHER, SELFPAY ==
--- NOTE | 2023-05-23 15:18 | A.OFFVIS_ITS ---
Intake Vital Signs 05/23/23 15:20 Height 5 ft 3 in Weight 154 lb 5.177 oz BMI 27.3 BP 138/72 Intake Visit Reasons: Biopsy results/DO NOT RS Colored Liquid Plastic Applier Required: Yes Colored Liquid Plastic Applier Language: Funeral Prearrangement Counselor Name: Martha ZAZUETA Information Interpreted: non-clinical & clinical Student Accounts Manager: Student Accounts Manager Present (Martha ZAZUETA) Accompanied by: Self / Same As Patient Allergies No Known Allergies Allergy (Verified 05/23/23 15:29) Post menopausal: Yes HPI HPI Comments History of Present Illness Details Presenting for follow-up post vulvar biopsy with no complaints. The pathology showed the following: A. Vulva, right labia majora, biopsy: Lichen sclerosus. B. Vulva, left labia majora, biopsy: Lichen sclerosus. [facility] Medical History Hypovitaminosis D B12 deficiency Insomnia due to mental condition CLAYTON (generalized anxiety disorder) Moderate recurrent major depression Dyslipidemia GERD (gastroesophageal reflux disease) VERA (acute kidney injury) Urge urinary incontinence Chronic fatigue Osteopenia Long-term use of aspirin therapy Surgical History History of cervical biopsy History of tubal ligation History of appendectomy Family History Father CVD (cardiovascular disease) Mother Chronic mental illness Brother Lung cancer Family/Other FH: mental illness Social History Housing: House Alcohol intake: never Patient Tobacco Use Status: Current everyday Tobacco user Tobacco use type: Cigarette Cigarettes Per Day: 4 Years Smoked: 55 e-Cigarette/Vaping Use: Never Used Second Hand Smoke Exposure: No service: No Current occupational status: disabled Cognitive needs: Yes Hearing needs: No Vision needs: Yes Female Reproductive History Menstrual Age of Menarche: 17 Review of Systems Const All systems reviewed & are unremarkable except as noted in HPI and below Reports as per HPI and Reports no additional complaints GI Reports no additional complaints Reports no additional complaints Assessment & Plan Assessment & Plan (1) Lichen sclerosus: Code(s): L90.0 - Lichen sclerosus et atrophicus Plan: Discussed with the patient the pathology results showing lichen sclerosis. Explained to the patient that Lichen sclerosus refers to a benign, chronic, progressive dermatologic condition characterized by marked inflammation, epithelial thinning accompanied by pruritus and pain. In addition, discussed with the patient that there is a small increased risk of squamous cell cancer of the vulva in patients with lichen sclerosus. Adequate treatment of the disease seems to be associated with a reduced risk of development of neoplasia. Instructed the patient to schedule an appointment in a year to examine the affected area, with possible biopsy of suspicious lesions, in addition explained to the patient that she should look at the skin of the affected area and touch with fingertips monthly to search for thickened lumps or sores that do not heal & to report such findings for inspection & possible biopsy to rule out vulvar cancer Will prescribe Clobetasol propionate 0.05% ointment to be applied daily at night for 2 weeks, followed by maintenance therapy two to three times per week . Medications: New clobetasol 0.05% Then maintenance therapy for 2-3 times per week 1 appl topical BID 45 grams 1RF 2 weeks Coding Level of Care Code Est Pt Level 3 (37152) Diagnoses Lichen sclerosus L90.0
[2023-05-23 15:20] VITALS: BP 138/72; BMI 27.3
== END 2023-05-23 17:31 ==
LOC: HO.HWS 15:07
PROVIDERS: PCP Internal Medicine; Visit Provider Obstetrics & Gynecology
DX: L90.0 Lichen sclerosus et atrophicus (principal)
CPT/HCPCS: 99213

== ENCOUNTER → 2023-05-23 15:07 | Outpatient (BNVA) | payer OTHER, SELFPAY | PROVIDERS: PCP Internal Medicine; Visit Provider Obstetrics & Gynecology | DX: L90.0 Lichen sclerosus et atrophicus (principal) | CPT/HCPCS: 99212 ==

== ENCOUNTER 2023-07-10 16:49 | Outpatient (AMB) | payer OTHER, SELFPAY ==
[2023-07-10 16:49] VITALS: BP 134/80; PULSE 77; O2SAT 100; BMI 28.3
--- NOTE | 2023-07-10 16:49 | A.OFFPC_ITS ---
Vital Signs 07/10/23 16:49 Height 5 ft 3 in Weight 160 lb BMI 28.3 BP 134/80 Blood Pressure Location Lt brachial Position Sitting Pulse 77 Pulse Source Pulse Oximeter Temp Source Skin Pulse Oximetry (%) 100 Oxygen Delivery Method Room Air Intake Visit Reasons: pe Intake Note: Patient is here today for a physical. Manager Interface Required: No Accompanied by: billing spec Allergies No Known Allergies Allergy (Verified 07/10/23 17:05) Medication List - Last Reconciled 07/10/23 by Jocy Lino MD aspirin 81 mg PO DAILY 90 days atorvastatin 40 mg PO BEDTIME 90 days bisacodyl (Dulcolax (bisacodyl)) 20 mg (4 x 5 mg) PO ONCE PRN 1 day cane As directed cholecalciferol (vitamin D3) 50 mcg PO DAILY 90 days clobetasol 0.05% 1 appl topical BID 2 weeks disposable gloves (Biobrane Gloves Medium) As directed docusate calcium 240 mg PO BID PRN 90 days escitalopram oxalate 10 mg PO DAILY 90 days ferrous sulfate 325 mg PO DAILY 90 days folic acid 1 mg PO DAILY 90 days incontinence pad, liner, disp (Affirm Pads) As directed levothyroxine 88 mcg PO DAILY 90 days lidocaine 4% (Aspercreme (lidocaine)) 3 patches topical DAILY PRN lisinopril 40 mg PO DAILY 90 days [mattress topper As directed] omeprazole 40 mg PO DAILY 90 days pantoprazole 40 mg PO DAILY 30 days polyethylene glycol 3350 (Miralax) 238 grams PO ONCE 1 day tobramycin 0.3% 1 drp ophthalmic (eye) Q4H 5 days tramadol 50 mg PO BID PRN 30 days underpads (Certainty Underpads) As directed [wipes As directed] zolpidem ER 12.5 mg PO BEDTIME PRN 30 days Tobacco use date assessed: 07/10/23 Fall risk assessment: No Falls in past year Last assessed Fall Risk: 07/10/23 Dental Screening Dental Screen Date: 07/10/23 Did you have a dental visit in the last 12 months?: Yes Did you have a dental problem in the last 6 months where you did not have access to dental care?: No Was dental information given to patient?: Patient has dentist HPI HPI Comments History of Present Illness Details This is a 78-year-old female with moderate recurrent major depression that comes accompanied by DOORPERSON OR LUGGAGE PORTER for her physical exam. Mammogram and bone density were ordered. Will have colonoscopy soon. Depression stable with escitalopram. No chest pain or shortness of breath. Still has insomnia with zolpidem extended release 12.5 mg once a day she sleeps for 3 hours. Will try Belsomra. [facility] Medical History (Updated 07/10/23 @ 18:21 by Jocy Lino MD) Hypovitaminosis D B12 deficiency Insomnia due to mental condition CLAYTON (generalized anxiety disorder) Moderate recurrent major depression Dyslipidemia GERD (gastroesophageal reflux disease) VERA (acute kidney injury) Urge urinary incontinence Chronic fatigue Osteopenia Long-term use of aspirin therapy Surgical History History of cervical biopsy History of tubal ligation History of appendectomy Family History Father CVD (cardiovascular disease) Mother Chronic mental illness Brother Lung cancer Family/Other FH: mental illness Social History Housing: House Alcohol intake: never Patient Tobacco Use Status: Current everyday Tobacco user Tobacco use type: Cigarette Cigarettes Per Day: 4 Years Smoked: 55 e-Cigarette/Vaping Use: Never Used Second Hand Smoke Exposure: No service: No Current occupational status: disabled Cognitive needs: Yes Hearing needs: No Vision needs: Yes Female Reproductive History Menstrual Age of Menarche: 17 Questionnaire PHQ-9 Over the last 2 weeks, how often have you been bothered by any of the following problems? 1. Little interest or pleasure in doing things: not at all 2. Feeling down, depressed, or hopeless: several days 3. Trouble falling or staying asleep, or sleeping too much: not at all 4. Feeling tired or having little energy: not at all 5. Poor appetite or overeating: not at all 6. Feeling bad about yourself - or that you are a failure or have let yourself or your family down: not at all 7. Trouble concentrating on things, such as reading the newspaper or watching television: not at all 8. Moving or speaking so slowly that other people could have noticed. Or the opposite - being so fidgety or restless that you have been moving around a lot more than usual: not at all 9. Thoughts that you would be better off or of hurting yourself in some way: not at all Total score: 1 Depression Screening Interpretation: Negative Depression Screening Done: Yes 93362 - PHQ-9 Billing: Yes Source: Developed by Drs. Flash Hackett, Iraida Dang, Osmani Weaver and colleagues, with an educational yordan from [employer]. Thrive Questionnaire Date Thrive assessed: 07/10/23 I am a: Patient What is your living situation today?: I have a steady place to live Within the past 12 months, did the food you bought not last and you didn't have the money to get more?: Never true Within the past 12 months, did you worry whether your food would run out before you got money to buy more?: Never true Do you have trouble paying for medicines?: No Do you have trouble getting transportation to medical appointments?: No Do you have trouble paying your heating and electricity bill?: No Do you have trouble taking care of your child, family member or friend?: No Do you have trouble with day-to-day activities such as bathing, preparing meals, shopping, managing finances, etc.?: No Are you currently unemployed and looking for a job?: No Are you interested in more education?: No Please select the resources that you would like help with: None Currently or been in a relationship where the following occur: no concerns reported THRIVE Score: 0 AUDIT C Alcohol Use Questionnaire (AUDIT-C) 1. How often do you have a drink containing alcohol?: Never 3. How often do you have six or more drinks on one occasion?: Never Total Score: 0 Score Reviewed/Action Taken: No CLAYTON-7 AMB Questionnaire CLAYTON-7 Date CLAYTON - 7 assessed: 07/10/23 Feeling nervous, anxious, or on edge: 1 = Several days Not being able to stop or control worryin = Several days Worrying too much about different things: 1 = Several days Trouble relaxin = Several days Being so restless that it is hard to sit still: 1 = Several days Becoming easily annoyed or irritable: 0 = Not at all Feeling afraid as if something awful might happen: 0 = Not at all Total CLAYTON-7 score (0-4 normal; 5-9 mild; 10-14 moderate; 15-21 severe): 5 Source: Developed by Drs. Flash Hackett, Iraida Dang, Osmani Weaver and colleagues, with an educational yordan from [employer]. CLAYTON-7 Assessment Billing CLAYTON-7 Assessment Tool: CLAYTON-7 Assessment 75588 Review of Systems Const All systems reviewed & are unremarkable except as noted in HPI and below Eyes Reports no additional complaints, Denies change in vision and Denies other visual disturbances Card Denies chest pain at rest, Denies chest pain with activity, Denies edema, Denies irregular heart rhythm, Denies claudication, Denies dyspnea, Denies dyspnea on exertion, Denies orthopnea, Denies paroxysmal nocturnal dyspnea and Denies slow heart rate Resp Denies cough, Denies dyspnea and Denies dyspnea on exertion Physical exam (Primary Care) Vital Signs: Last Vital Signs Pulse 77 07/10/23 16:49 BP 134/80 07/10/23 16:49 Pulse Ox 100 07/10/23 16:49 Oxygen Delivery Method Room Air 07/10/23 16:49 BMI result Body Mass Index 28.3 Tobacco/Smoking Status: Tobacco use Status Tobacco use date assessed 07/10/23 07/10/23 16:56 Patient Tobacco Use Status Current everyday Tobacco 07/10/23 16:56 Tobacco use type Cigarette 07/10/23 16:56 e-Cigarette/Vaping Use Never Used 07/10/23 16:56 PHQ-9: PHQ-9 Score PHQ-9: Total score 1 07/10/23 17:10 Depression Screening Interpretation: Negative Thrive Assessment: Date of Thrive Assessment Date Thrive assessed 07/10/23 07/10/23 16:56 Currently or been in a relationship where the following occur: no concerns reported Const Orientation/consciousness: patient oriented x3 HENMT Head: Yes normal to inspection, Yes normocephalic and Yes atraumatic Ears: external ears normal Eyes General: appearance normal, both eyes and all related structures Eyelids: Yes eyelids normal Conjunctivae: conjunctivae normal Neck Neck: Yes normal visual inspection and Yes supple Resp Effort & Inspection: normal respiratory effort Auscultation: clear to auscultation bilaterally Cardio Jugular venous distension: no JVD Rate: regular rate Rhythm: regular rhythm Heart sounds: S1 normal heart sound present and S2 normal heart sound present GI Inspection: Yes normal to inspection Palpation (GI): Soft to palpation and nontender Auscultation: normal bowel sounds Skin General skin exam: no rashes or lesions noted Neuro General: patient oriented x3 and no focal motor deficits Extrem General: Yes full ROM Psych Appearance: grossly normal Assessment and Plan Assessment & Plan (1) Physical exam: Code(s): Z00.00 - Encounter for general adult medical examination without abnormal findings Plan: Repeat in a year. (2) Moderate recurrent major depression: Code(s): F33.1 - Major depressive disorder, recurrent, moderate Plan: Continue escitalopram. Orders: Orders Lipid Panel Today E78.5 - Hyperlipidemia, unspecified Complete Blood Count Auto Diff Today D64.9 - Anemia, unspecified IRON PROFILE Today D64.9 - Anemia, unspecified Comprehensive [place]. Panel Fast Today Z00.00 - Encounter for general adult medical examination without abnormal findings MM screening mammo BI Today Z12.31 - Encounter for screening mammogram for malignant neoplasm of breast XR DEXA axial skeleton Today N95.9 - Unspecified menopausal and perimenopausal disorder Vitamin B12 and Folate Today E53.8 - Deficiency of other specified B group vitamins Vitamin D 25-OH Total Today E55.9 - Vitamin D deficiency, unspecified Thyroid Stimulating Hormone Today E03.9 - Hypothyroidism, unspecified Medications: New suvorexant (Belsomra) 15 mg PO BEDTIME 30 tabs 0RF 30 days Discontinued zolpidem ER Discontinued Reason: Patient Completed Course 12.5 mg PO BEDTIME 30 days PRN 30 tabs 0RF insomnia Coding Level of Care Code Est Pt Prev Care >65y(35857) Diagnoses Physical exam Z00.00 Moderate recurrent major depression F33.1 Additional Codes CLAYTON-7 Assessment Billing - CLAYTON-7 Assessment Tool: CLAYTON-7 Assessment [id number] ([id number]) Time Spent (min) 33
== END 2023-07-10 17:21 | disposition home or self-care (01) ==
PROVIDERS: PCP Internal Medicine; Visit Provider Internal Medicine
DX: Z00.00 Encounter for general adult medical examination without abnormal findings (principal); F33.1 Major depressive disorder, recurrent, moderate
CPT/HCPCS: 99397

== ENCOUNTER 2023-08-28 14:16 | Outpatient (REF) | payer OTHER, SELFPAY ==
--- NOTE | ~2023-08-28 | MM_ITS ---
EXAMINATION: MM SCREENING DIGITAL BREAST TOMOSYNTHESIS, BILATERAL CLINICAL INFORMATION: Screening. Asymptomatic. COMPARISON: Mammography: This study is compared with prior exams dating back to 2016. TECHNIQUE: Digital breast tomosynthesis is performed in both the craniocaudal and mediolateral oblique views along with computer-aided detection (CAD). Synthesized 2D images are generated from the tomosynthesis. FINDINGS: The breasts are almost entirely fatty (ACR BI-RADS breast composition Category a). There is a focal asymmetry in the upper outer quadrant of the left breast at middle depth. Additional mammographic and targeted sonographic imaging of this finding is advised. In the right breast, there are no significant masses, abnormal calcifications, or other abnormalities. MM/MM tomosynthesis screening BI IMPRESSION: Focal asymmetry of the left breast warrants additional mammographic and targeted sonographic imaging. No mammographic signs of malignancy right breast. ASSESSMENT: BI-RADS BI-RADS 0 - Incomplete: Needs additional Imaging. RECOMMENDATION: 1. Additional views of the left breast. 2. Targeted ultrasound if warranted after review of the additional views. 3. Radiology department staff will contact the patient for additional imaging. Additional Imaging required This examination should not preclude the clinical evaluation of a suspicious palpable abnormality. This patient's information was entered into a reminder system with a target due date for their next mammogram.
--- NOTE | ~2023-08-28 | MM_ITS ---
EXAMINATION: BONE DENSITOMETRY CLINICAL INDICATION: Menopause. COMPARISON: Baseline BD dated 03/28/2011. TECHNIQUE: Using a [employer] DXA System (software version: 13.1) manufactured by [employer], dual-energy x-ray absorptiometry was performed of the lumbar spine and left hip. The images are of good technical quality. Summary results are attached. FINDINGS: LEFT FEMUR, NECK: Current: BMD 0.650 g/cm2, Z-score -0.9, T-score -2.8, osteoporosis. Baseline: BMD 0.778 g/cm2. LEFT FEMUR, TOTAL: Current: BMD 0.727 g/cm2, Z-score -0.5, T-score -2.2, osteopenia, 11.3% decrease from baseline (<5% change is not significant). Baseline: BMD 0.820 g/cm2. AP SPINE L1-L4 (excluding L3): The data of L1-L4 has been changed to exclude the L3 vertebral body, because degenerative sclerosis at this level may cause overestimation of lumbar spine density. Current: BMD 0.878 g/cm2, Z-score -0.9, T-score -2.4, osteopenia, 13.9% decrease from baseline (<5% change is not significant). Baseline: BMD 1.020 g/cm2. IDENTIFIED RISK FACTORS: Early menopause, low calcium intake, secondary osteoporosis (hyperthyroidism), tobacco use (current smoker). HISTORY OF FRACTURE: None listed. MEDICATIONS: Calcium, vitamin D. MM/XR DEXA axial skeleton IMPRESSION: 1. DIAGNOSIS: Osteoporosis based on the lowest T-score value of -2.8 in the femoral neck applying World Health Organization criteria. 2. 10-YEAR FRACTURE RISK PREDICTION, FRAX: According to the guidelines, FRAX calculation should only be performed on patients in the osteopenia bone density category. Therefore, FRAX was not performed on this patient. 3. Treatment Recommendations: NOF guidelines recommend consideration for treatment in postmenopausal women and men age 50 and older presenting with the following: -A hip or vertebral (clinical or morphometric) fracture. -T-score less than or equal to -2.5 at the femoral neck or spine after appropriate evaluation to exclude secondary causes. -Low bone mass at the hip or spine and a 10-year fracture probability by FRAX of greater than or equal to 3% for hip fracture or greater than or equal to 20% for major osteoporotic fracture based on the [place] adapted WHO algorithm. 4. Other Recommendations: All treatment decisions require clinical judgment and consideration of individual patient factors, including patient preferences, comorbidities, previous drug use, risk factors not captured in the FRAX model (e.g. frailty, falls, vitamin D deficiency, increased bone turnover, interval significant decline in bone density) and possible under or overestimation of fracture risk by FRAX. Additional medical evaluation for secondary cause of low bone mineral density may be appropriate. FUTURE SCAN RECOMMENDATION: People with diagnosed cases of osteoporosis or at high risk for fracture should have regular bone mineral density tests. For patients eligible for Medicare, routine testing is allowed once every 2 years. The testing frequency can be increased to one year for patients who have rapidly progressing disease, those who are receiving or discontinuing medical therapy to restore bone mass, or have additional risk factors.
== END 2023-08-28 14:17 | disposition home or self-care (01) ==
LOC: HO.MAMMO 14:16
PROVIDERS: PCP Internal Medicine; Visit Provider Internal Medicine
DX: Z12.31 Encounter for screening mammogram for malignant neoplasm of breast (principal); Z13.820 Encounter for screening for osteoporosis; Z78.0 Asymptomatic menopausal state
CPT/HCPCS: 77063; 77067; 77080

== ENCOUNTER → 2023-08-28 14:30 | Outpatient (BNV) | payer OTHER, SELFPAY | PROVIDERS: PCP Internal Medicine; Visit Provider Radiology Diagnostic Radiology | DX: Z12.31 Encounter for screening mammogram for malignant neoplasm of breast (principal) | CPT/HCPCS: 77063; 77067 ==

== ENCOUNTER 2023-11-07 15:31 | Outpatient (AMB) | payer OTHER, SELFPAY ==
--- NOTE | 2023-11-07 15:38 | A.OFFPC_ITS ---
Vital Signs 11/07/23 15:39 Height 5 ft 3 in Weight 163 lb BMI 28.9 BP 120/80 Blood Pressure Location Lt brachial Position Sitting Intake Visit Reasons: insomnia, anemia Intake Note: Patient here for a follow up insomnia, anemia, c/o right side pain General Merchandise Manager Required: No Accompanied by: Grand Child/LOCKER ATTENDANT Allergies No Known Allergies Allergy (Verified 11/07/23 15:50) Medication List - Last Reconciled 11/07/23 by Jocy Lino MD alendronate 70 mg PO QWEEK 90 days aspirin 81 mg PO DAILY 90 days atorvastatin 40 mg PO BEDTIME 90 days bisacodyl (Dulcolax (bisacodyl)) 20 mg (4 x 5 mg) PO ONCE PRN 1 day cane As directed cholecalciferol (vitamin D3) 50 mcg PO DAILY 90 days clobetasol 0.05% 1 appl topical BID 2 weeks disposable gloves As directed docusate calcium 240 mg PO BID PRN 90 days escitalopram oxalate 10 mg PO DAILY 90 days ferrous sulfate 325 mg PO DAILY 90 days folic acid 1 mg PO DAILY 90 days incontinence pad, liner, disp (Affirm Pads) As directed levothyroxine 88 mcg PO DAILY 90 days lidocaine 4% (Aspercreme (lidocaine)) 3 patches topical DAILY PRN lisinopril 40 mg PO DAILY 90 days [mattress topper As directed] omeprazole 40 mg PO DAILY 90 days quetiapine mg PO tobramycin 0.3% 1 drp ophthalmic (eye) Q4H 5 days tramadol 50 mg PO BID PRN 30 days underpads (Certainty Underpads) As directed [walker As directed] [wipes As directed] zolpidem ER 12.5 mg PO DAILY 30 days Tobacco use date assessed: 07/10/23 Fall risk assessment: No Falls in past year Last assessed Fall Risk: 11/07/23 Dental Screening Dental Screen Date: 07/10/23 HPI HPI Comments History of Present Illness Details This is a 78-year-old female with hypertension, hypothyroidism, moderate major depression, pure hypercholesterolemia and osteoporosis that comes today accompanied by LOCKER ATTENDANT for follow-up on her conditions. Blood pressure stable. TSH will be ordered. Depression well controlled with Seroquel and she is sleeping better with the Seroquel and zolpidem. Lipid panel will be order. DEXA scan done in August 2023 shows osteoporosis and I started her on alendronate once a week which she is tolerating it well and is aware that needs to be in alendronate for 5 years. DEXA scan will be repeated 2025. [facility] Medical History (Updated 11/07/23 @ 16:38 by Jocy Lino MD) Depression HTN (hypertension) Hypovitaminosis D B12 deficiency Insomnia due to mental condition CLAYTON (generalized anxiety disorder) Moderate recurrent major depression Dyslipidemia GERD (gastroesophageal reflux disease) VERA (acute kidney injury) Urge urinary incontinence Chronic fatigue Osteopenia Long-term use of aspirin therapy Surgical History History of cervical biopsy History of tubal ligation History of appendectomy Family History Father CVD (cardiovascular disease) Mother Chronic mental illness Brother Lung cancer Family/Other FH: mental illness Social History Housing: House Alcohol intake: never Patient Tobacco Use Status: Current everyday Tobacco user Tobacco use type: Cigarette Cigarettes Per Day: 4 Years Smoked: 55 e-Cigarette/Vaping Use: Never Used Second Hand Smoke Exposure: No Advance Directives Date on File: 10/12/11 service: No Current occupational status: disabled Cognitive needs: Yes Hearing needs: No Vision needs: Yes Female Reproductive History Menstrual Age of Menarche: 17 Questionnaire Thrive Questionnaire Date Thrive assessed: 07/10/23 CLAYTON-7 AMB Questionnaire CLAYTON-7 Date CLAYTON - 7 assessed: 07/10/23 Source: Developed by Drs. Flash Hackett, Iraida Dang, sOmani Weaver and colleagues, with an educational yordan from [employer]. Review of Systems Const All systems reviewed & are unremarkable except as noted in HPI and below Card Denies chest pain at rest, Denies chest pain with activity, Denies edema, Denies irregular heart rhythm, Denies claudication, Denies dyspnea, Denies dyspnea on exertion, Denies orthopnea, Denies paroxysmal nocturnal dyspnea and Denies slow heart rate Resp Denies cough, Denies dyspnea and Denies dyspnea on exertion Physical exam (Primary Care) Vital Signs: Last Vital Signs BP 120/80 11/07/23 15:39 BMI result Body Mass Index 28.9 Tobacco/Smoking Status: Tobacco use Status Tobacco use date assessed 07/10/23 11/07/23 15:38 Patient Tobacco Use Status Current everyday Tobacco 11/07/23 15:38 Tobacco use type Cigarette 11/07/23 15:38 e-Cigarette/Vaping Use Never Used 11/07/23 15:38 Thrive Assessment: Date of Thrive Assessment Date Thrive assessed 07/10/23 11/07/23 15:38 Resp Effort & Inspection: normal respiratory effort Auscultation: clear to auscultation bilaterally Cardio Jugular venous distension: no JVD Rate: regular rate Rhythm: regular rhythm Heart sounds: S1 normal heart sound present and S2 normal heart sound present Extrem General: Yes full ROM Psych Appearance: grossly normal Assessment and Plan Assessment & Plan (1) HTN (hypertension), benign: Code(s): I10 - Essential (primary) hypertension Plan: Continue lisinopril. Blood pressure goal is equal or less than 130/80. (2) Hypothyroid: Code(s): E03.9 - Hypothyroidism, unspecified Qualifiers: Hypothyroidism type: unspecified Qualified Code(s): E03.9 - Hypothyroidism, unspecified Plan: Continue levothyroxine. Monitor TSH. (3) Pure hypercholesterolemia: Code(s): E78.00 - Pure hypercholesterolemia, unspecified Plan: Continue statins. Repeat lipid panel. Start low-cholesterol diet. (4) Osteoporosis: Code(s): M81.0 - Age-related osteoporosis without current pathological fracture Qualifiers: Osteoporosis type: age-related Presence of current pathological fracture: without current pathological fracture Qualified Code(s): M81.0 - Age- related osteoporosis without current pathological fracture Plan: Continue alendronate once a week to complete 5 years which will be 2028. Repeat DEXA scan in 2025. (5) Moderate recurrent major depression: Code(s): F33.1 - Major depressive disorder, recurrent, moderate Plan: Continue Seroquel. Orders: Orders Complete Blood Count Auto Diff Today D64.9 - Anemia, unspecified Lipid Panel 2 Days E78.5 - Hyperlipidemia, unspecified Comprehensive [place]. Panel Fast Today E78.00 - Pure hypercholesterolemia, unspecified IRON PROFILE Today D64.9 - Anemia, unspecified Thyroid Stimulating Hormone Today E03.9 - Hypothyroidism, unspecified Medications: Refilled lidocaine 4% (Aspercreme (lidocaine)) 3 patches topical DAILY PRN 30 ea 3RF pain M25.519 - Pain in unspecified shoulder, M54.9 - Dorsalgia, unspecified tobramycin 0.3% 1 drp ophthalmic (eye) Q4H 5 mL 0RF 5 days Coding Level of Care Code Est Pt Level 4 (14448) Complex EM visit Add On G2211 Diagnoses HTN (hypertension), benign I10 Hypothyroidism, unspecified type E03.9 Hypothyroidism type: unspecified Pure hypercholesterolemia E78.00 Age-related osteoporosis without current pathological fracture M81.0 Osteoporosis type: age-related Presence of current pathological fracture: without current pathological fracture Moderate recurrent major depression F33.1 Time Spent (min) 23
[2023-11-07 15:39] VITALS: BP 120/80; BMI 28.9
== END 2023-11-07 16:03 | disposition home or self-care (01) ==
PROVIDERS: PCP Internal Medicine; Visit Provider Internal Medicine
DX: I10 Essential (primary) hypertension (principal); E03.9 Hypothyroidism, unspecified; E78.00 Pure hypercholesterolemia, unspecified; M81.0 Age-related osteoporosis without current pathological fracture; F33.1 Major depressive disorder, recurrent, moderate
CPT/HCPCS: 99214; G2211

== ENCOUNTER 2023-11-07 16:10 | Outpatient (REF) | payer OTHER, SELFPAY ==
[2023-11-07 16:26] LABS: MANUAL DIFF FLAG NO
[2023-11-07 17:51] LABS: Basophils Absolute Auto 0.1 X10*3/uL (0.0-0.2); Basophils Percent Auto 1.1 % (0-2); Eosinophils Absolute Auto 0.1 X10*3/uL (0.0-0.4); Eosinophils Percent Auto 2.3 % (0-4); Hematocrit 37.3 % (37.0-47.0); Hemoglobin 11.9 g/dl (12.0-16.0); Imm Gran Abs Auto 0.02 X10*3/uL (0.00-0.03); Imm Gran Pct Auto 0.3 % (0.0-0.4); Lymphocytes Absolute Auto 1.7 X10*3/uL (1.2-4.9); Lymphocytes Percent Auto 27.9 % (20-40); Mean Corpuscular HGB Conc 31.9 g/dl (31.0-35.0); Mean Corpuscular Hemoglobin 29.6 pg (27.0-33.0); Mean Corpuscular Volume 92.8 fL (80.0-98.0); Mean Platelet Volume 9.9 fL (9.4-12.3); Monocytes Absolute Auto 0.4 X10*3/uL (0.1-1.2); Monocytes Percent Auto 7.2 % (2-11); Neutrophils Absolute Auto 3.7 x10*3/uL (2.0-8.3); Neutrophils Percent Auto 61.2 % (45-73); Platelet Count 193 X10*3/uL (160-400); Red Blood Count 4.02 X10*6/uL (4.20-5.50); Red Cell Distribution Width 14.6 % (11.0-16.0); White Blood Count 6.1 X10*3/uL (4.8-10.8)
[2023-11-07 18:21] LABS: Alanine Aminotransferase 36 U/L (0-31); Albumin Level 4.2 g/dL (3.5-5.0); Alkaline Phosphatase 97 U/L (39-117); Anion Gap 10 (12-20); Aspartate Amino Transferase 25 U/L (5-31); Bilirubin Total 0.3 mg/dL (0.0-1.0); Blood Urea Nitrogen 22 mg/dL (9-16); Calcium 9.7 mg/dL (8.4-10.2); Carbon Dioxide 26 mmol/L (22-29); Chloride 108 mmol/L (96-108); Estimated Glomerular Filt Rate 36; Glucose Fasting 148 mg/dL (60-99); Iron 140 mcg/dL (30-160); Percent Iron Saturation 48 % (15-50); Potassium 4.1 mmol/L (3.3-5.1); Sodium 140 mmol/L (135-145); Total Iron Binding Capacity 289 mcg/dL (228-428); Total Protein 7.3 g/dL (6.5-8.0); Unsaturated Iron Binding 149 ug/dL
[2023-11-07 18:32] LABS: Thyroid Stimulating Hormone 0.86 uIU/mL (0.32-4.0); Vitamin D 25-OH Total 63.6 ng/mL (>30)
[2023-11-07 18:49] LABS: Folate 18.7 ng/mL (> or = 4.0); Vitamin B12 > 2000 pg/mL (200-900)
== END 2023-11-07 16:11 | disposition home or self-care (01) ==
LOC: HO.LAB 16:10
PROVIDERS: PCP Internal Medicine; Visit Provider Internal Medicine
DX: D64.9 Anemia, unspecified (principal); I10 Essential (primary) hypertension; E53.8 Deficiency of other specified B group vitamins; E55.9 Vitamin D deficiency, unspecified; E03.9 Hypothyroidism, unspecified
CPT/HCPCS: 36415; 80053; 82306; 82607; 82746; 83540; 84443; 85025

== ENCOUNTER 2023-11-29 09:29 | Day surgery (SDC) | payer OTHER, SELFPAY ==
[2023-07-13 12:17] VITALS: BMI 27.1
--- NOTE | 2023-07-16 08:42 | HO.ANESPROP2 ---
HPI - Anesthesia Eval Consult details Narrative: 78yo F for Upper Endoscopy and Colonoscopy [facility] Active Problems Active Problems: All Active Problems Physical exam (Acute) Lichen sclerosus (Acute) Pure hypercholesterolemia (Acute) Dysuria (Acute) Rt flank pain (Acute) Umbilical hernia (Acute) Vulvar leukoplakia (Acute) Post-menopausal bleeding (Acute) Shoulder pain (Acute) Back pain (Acute) Hypothyroid (Acute) Overweight (Acute) Lumbar degenerative disc disease (Acute) Depression with anxiety (Acute) High cholesterol (Acute) HTN (hypertension), benign (Acute) GERD (gastroesophageal reflux disease) (Acute) Colon cancer screening (Acute) Hypovitaminosis D (Acute) B12 deficiency (Acute) Insomnia due to mental condition (Acute) CLAYTON (generalized anxiety disorder) (Acute) Moderate recurrent major depression (Acute) Dyslipidemia (Acute) GERD (gastroesophageal reflux disease) (Acute) Urge urinary incontinence (Acute) Chronic fatigue (Acute) Osteopenia (Acute) Long-term use of aspirin therapy (Acute) Past Medical History Medical History (Updated 07/13/23 @ 12:12 by Kimberly Alba RN) Depression HTN (hypertension) Hypovitaminosis D B12 deficiency Insomnia due to mental condition CLAYTON (generalized anxiety disorder) Moderate recurrent major depression Dyslipidemia GERD (gastroesophageal reflux disease) VERA (acute kidney injury) Urge urinary incontinence Chronic fatigue Osteopenia Long-term use of aspirin therapy Family History Family History Father CVD (cardiovascular disease) Mother Chronic mental illness Brother Lung cancer Family/Other FH: mental illness Family history of problems with anesthesia: No Surgical History Surgical History History of cervical biopsy History of tubal ligation History of appendectomy History of Problems with Anesthesia: No Social History Social History Housing: House Alcohol intake: never Patient Tobacco Use Status: Current everyday Tobacco user Tobacco use type: Cigarette Cigarettes Per Day: 4 Years Smoked: 55 e-Cigarette/Vaping Use: Never Used Second Hand Smoke Exposure: No Advance Directives: Yes Advance Directives Information Provided: Yes Advance Directives on File: Yes Advance Directives Date on File: 10/12/11 service: No Current occupational status: disabled Cognitive needs: Yes Hearing needs: No Vision needs: Yes Meds Allergies Allergy/AdvReac Type Severity Reaction Status Date / Time No Known Allergies Allergy Verified 07/10/23 17:05 Exam Height,Weight and Vital Signs: Height 5 ft 3 in Weight 69.4 kg Assessment and Plan Assessment Anesthesia Assessment: Chart Reviewed Final Anesthetic Review Family History of Problems with Anesthesia: No History of Problems with Anesthesia: No
--- NOTE | 2023-11-28 09:49 | HO.ANESPROP2 ---
Documented by User: Anita Aj NP 11/28/23 09:50 HPI - Anesthesia Eval Consult details Narrative: 78yo F for Upper Endoscopy and Colonoscopy PMF Active Problems Active Problems: All Active Problems Osteoporosis (Acute) Physical exam (Acute) Lichen sclerosus (Acute) Pure hypercholesterolemia (Acute) Dysuria (Acute) Rt flank pain (Acute) Umbilical hernia (Acute) Vulvar leukoplakia (Acute) Post-menopausal bleeding (Acute) Shoulder pain (Acute) Back pain (Acute) Hypothyroid (Acute) Overweight (Acute) Lumbar degenerative disc disease (Acute) Depression with anxiety (Acute) High cholesterol (Acute) HTN (hypertension), benign (Acute) GERD (gastroesophageal reflux disease) (Acute) Colon cancer screening (Acute) Hypovitaminosis D (Acute) B12 deficiency (Acute) Insomnia due to mental condition (Acute) CLAYTON (generalized anxiety disorder) (Acute) Moderate recurrent major depression (Acute) Dyslipidemia (Acute) GERD (gastroesophageal reflux disease) (Acute) Urge urinary incontinence (Acute) Chronic fatigue (Acute) Osteopenia (Acute) Long-term use of aspirin therapy (Acute) Past Medical History Medical History Depression HTN (hypertension) Hypovitaminosis D B12 deficiency Insomnia due to mental condition CLAYTON (generalized anxiety disorder) Moderate recurrent major depression Dyslipidemia GERD (gastroesophageal reflux disease) VERA (acute kidney injury) Urge urinary incontinence Chronic fatigue Osteopenia Long-term use of aspirin therapy Family History Family History Father CVD (cardiovascular disease) Mother Chronic mental illness Brother Lung cancer Family/Other FH: mental illness Family history of problems with anesthesia: No Surgical History Surgical History History of cervical biopsy History of tubal ligation History of appendectomy History of Problems with Anesthesia: No Social History Social History Housing: House Are you a primary home health care social worker to a significant other at home: No Do you presently have visiting nurse or other home services: Yes (STRADDLE BUGGY OPERATOR) Alcohol intake: never Patient Tobacco Use Status: Current everyday Tobacco user Tobacco use type: Cigarette Cigarettes Per Day: 4 Years Smoked: 55 e-Cigarette/Vaping Use: Never Used Second Hand Smoke Exposure: No Use of substances other than those prescribed or required for medical reasons: No Are you DNR?: No Advance Directives: Yes Advance Directives Information Provided: Yes Advance Directives on File: Yes Advance Directives Date on File: 10/12/11 service: No Current occupational status: disabled Cognitive needs: Yes Hearing needs: No Vision needs: Yes Meds Allergies Allergy/AdvReac Type Severity Reaction Status Date / Time No Known Allergies Allergy Verified 11/29/23 10:15 Exam Height,Weight and Vital Signs: Height 5 ft 3 in Weight 69.4 kg Pertinent Lab Results Pertinent Lab Results: Laboratory Tests 11/07/23 15:20 WBC 6.1 Hgb 11.9 L Hct 37.3 Plt Count 193 Sodium 140 Potassium 4.1 Chloride 108 Carbon Dioxide 26 BUN 22 H Creatinine 1.40 Assessment and Plan Assessment Anesthesia Assessment: Chart Reviewed Final Anesthetic Review Family History of Problems with Anesthesia: No History of Problems with Anesthesia: No Documented by User: Purnima Temple MD 11/29/23 10:[facility] Past Medical History Medical History Depression HTN (hypertension) Hypovitaminosis D B12 deficiency Insomnia due to mental condition CLAYTON (generalized anxiety disorder) Moderate recurrent major depression Dyslipidemia GERD (gastroesophageal reflux disease) VERA (acute kidney injury) Urge urinary incontinence Chronic fatigue Osteopenia Long-term use of aspirin therapy Family History Family History Father CVD (cardiovascular disease) Mother Chronic mental illness Brother Lung cancer Family/Other FH: mental illness Surgical History Surgical History History of cervical biopsy History of tubal ligation History of appendectomy Social History Social History Housing: House Are you a primary home health care social worker to a significant other at home: No Do you presently have visiting nurse or other home services: Yes (STRADDLE BUGGY OPERATOR) Alcohol intake: never Patient Tobacco Use Status: Current everyday Tobacco user Tobacco use type: Cigarette Cigarettes Per Day: 4 Years Smoked: 55 e-Cigarette/Vaping Use: Never Used Second Hand Smoke Exposure: No Use of substances other than those prescribed or required for medical reasons: No Are you DNR?: No Advance Directives: Yes Advance Directives Information Provided: Yes Advance Directives on File: Yes Advance Directives Date on File: 10/12/11 service: No Current occupational status: disabled Cognitive needs: Yes Hearing needs: No Vision needs: Yes Meds Allergies Allergy/AdvReac Type Severity Reaction Status Date / Time No Known Allergies Allergy Verified 11/29/23 10:15 Exam Airway Mallampati Class: II TM Dist: <=3cm Neck ROM: Limited Heart: rrr Lungs: cta Assessment and Plan Assessment Anesthesia Assessment: Anesthesia Plan Discussed Final Anesthetic Review NPO: Yes ASA Class: III Final Preanesthetic Review: No Changes in Pt Med Stat, Meds/Allgs Chart Reviewed, Consent Obtained/Reviewed and Anes Risks/Benef Reviewed Patient Risk: Intermediate Procedure Risk: Low Anesthetic Plan Anesthetic Plan: MAC: Disposition: Standard PACU
[2023-11-29 10:16] VITALS: BP 162/80; PULSE 68; RESP 16; TEMP 36.6; O2SAT 99
--- NOTE | 2023-11-29 10:18 | MHC.SHP ---
Pre-Procedural Eval Section A - 24 Hr Update-Section A only Date of Service: 11/29/23 Section B - Complete if H&P > 30 days Chief Complaint: screening,gerd Details of Present Illness: Hypovitaminosis D B12 deficiency Insomnia due to mental condition CLAYTON (generalized anxiety disorder) Moderate recurrent major depression Dyslipidemia GERD (gastroesophageal reflux disease) VERA (acute kidney injury) Urge urinary incontinence Chronic fatigue Osteopenia Long-term use of aspirin therapy Surgical History History of cervical biopsy History of tubal ligation History of appendectomy Allergies: Allergies Allergy/AdvReac Type Severity Reaction Status Date / Time No Known Allergies Allergy Verified 11/29/23 10:15 Review of Systems Review of Systems Comment: Ten point ROS negative Exam Exam Comment: Gen appear: No acute distress HEENT: no icterus Chest: No overt resp distress Abd: soft, nontender, nondistended Psych: Stable affect, answering questions appropriately Neuro: A/Ox3 noted to move all extremities spontaneously Ext: no peripheral edema Plan Diagnosis/Plan: Unchanged I have reviewed the history and physical and performed a pertinent physical examination on my patient. No changes have occurred unless specified. Time Spent With Patient Time: Total time managing care of this patient today ____ minutes.
--- NOTE | 2023-11-29 10:30 | P.OPN-COLO_ITS ---
Colonoscopy Operative Note Operative Note Date of Service: 11/29/23 Narrative: Procedure: Upper endoscopy and colonoscopy Indication: Abd pain, screening Endoscopist: Chelly Ely MD Anesthesia Provider: Dr Purnima Temple Anesthesia type: MAC Instrument: [id number] and [id number] EGD Procedure:?? The procedure, indications, preparation and potential complications were reviewed with the patient, who indicated understanding and gave written informed consent to proceed. [place] Islander intepreter assisted with the encounter. The endoscope was introduced through the mouth, and advanced to the 2nd part of the duodenum. The mucosa was carefully examined on slow withdrawal of the endoscope. The patient tolerated the procedure well. There were no immediate complications.? EGD Findings:? * Esophagus:? Small linear erosions that did not cross the tops of the mucosal folds. The Z-line was at 35 cm. There was a large hiatal hernia with a diaphragmatic pinch at 40 cm. Cold forceps biopsies were taken from the GE junction. * Stomach:? Erythema and erosions were noted in the body of the stomach. Retroflexion was performed in the cardia that showed Hill grade IV hiatal hernia. Random cold forceps biopsies were taken from the stomach. A few fundic gland polyps were noted in the fundus of the stomach. * Duodenum:? Normal duodenal mucosa. Colonoscopy Procedure:? The patient was then turned for the colonoscopy. A digital rectal exam was per formed which was normal.? A distal attachment cap was affixed to the tip of the scope and the colonoscope was then inserted through the anus and advanced through the colon and advanced to the cecum at 90 cm.? Appendiceal orifice and ileocecal valve were identified. Mucosa was carefully examined under high definition white light as the instrument was slowly withdrawn in a retrograde panoramic fashion. Retroflexion was performed in ascending colon and rectum. The procedure was not difficult. The quality of the prep was BBPS: 2+2+2 = adequate Withdrawal time 8 minutes Limitations: No limitations Findings: Mucosa: Normal colon and terminal ileum mucosa. Protruding lesions: * Two sessile polyps of size 2 mm were noted in the ascending colon. Cold forceps polypectomy was performed and the polyps were completely removed and retrieved. * One sessile polyp of size 5 mm was noted in the rectum. Cold snare polypectomy was performed. Polyp was completely removed and retrieved. * Large internal hemorrhoids without stigmata of recent bleeding. Excavated lesions: * Mild diverticulosis in the sigmoid colon. Impression: 1. Grade A esophagitis (biopsy) 2. Gastritis (biopsy) 3. Hiatal hernia 4. Fundic gland polyps 5. Normal duodenum (biopsy) 6. Normal colon mucosa (biopsy) 7. Total 3 polyps removed 8. Internal and external hemorrhoids 9. Diverticulosis Recommendations:?? * Follow-up path results * Switch omeprazole to esomeprazole given esophagitis and gastritis despite it * Barium swallow ordered to further evaluate the hiatal hernia * Repeat colonoscopy in 3 years if all 3 polyps are adenoma otherwise 5 years if still in good health.
[2023-11-29] MEDS: Lactated Ringers 1,000 ML 100 ML IVCONT (10:39)
[2023-11-29 11:45] VITALS: BP 116/72; PULSE 73; RESP 16; TEMP 36.6; O2SAT 99
[2023-11-29 12:00] VITALS: BP 114/73; PULSE 61; RESP 14; O2SAT 99
[2023-11-29 12:16] VITALS: BP 130/60; PULSE 62; RESP 14; TEMP 36.6; O2SAT 99
== END 2023-11-29 12:45 | disposition home or self-care (01) ==
PROVIDERS: PCP Internal Medicine; Visit Provider Internal Medicine
PROC: (CPT 45385; principal; 2023-11-29 12:00)
DX: Z12.11 Encounter for screening for malignant neoplasm of colon (principal); D12.2 Benign neoplasm of ascending colon; D12.8 Benign neoplasm of rectum; K57.30 Diverticulosis of large intestine without perforation or abscess without bleeding; K64.8 Other hemorrhoids; K64.4 Residual hemorrhoidal skin tags; K21.9 Gastro-esophageal reflux disease without esophagitis; K29.50 Unspecified chronic gastritis without bleeding; K31.7 Polyp of stomach and duodenum; K20.80 Other esophagitis without bleeding; K44.9 Diaphragmatic hernia without obstruction or gangrene; N17.9 Acute kidney failure, unspecified; R53.82 Chronic fatigue, unspecified; E78.5 Hyperlipidemia, unspecified; E55.9 Vitamin D deficiency, unspecified; E53.8 Deficiency of other specified B group vitamins; F51.05 Insomnia due to other mental disorder; F33.1 Major depressive disorder, recurrent, moderate; F41.9 Anxiety disorder, unspecified; Z79.82 Long term (current) use of aspirin; Z79.899 Other long term (current) drug therapy; Z98.890 Other specified postprocedural states
CPT/HCPCS: 45385; 45380; 43239; 88305; 88313; 88342; J1100; J1596; J2250; J2371; J2704

== ENCOUNTER → 2023-11-29 09:29 | Outpatient (BNV) | payer OTHER, SELFPAY | PROVIDERS: PCP Internal Medicine; Visit Provider Internal Medicine | DX: Z12.11 Encounter for screening for malignant neoplasm of colon (principal); D12.2 Benign neoplasm of ascending colon; D12.8 Benign neoplasm of rectum; K57.30 Diverticulosis of large intestine without perforation or abscess without bleeding; K64.8 Other hemorrhoids; K20.90 Esophagitis, unspecified without bleeding; K29.70 Gastritis, unspecified, without bleeding; K31.7 Polyp of stomach and duodenum | CPT/HCPCS: 43239; 45380; 45385 ==

== ENCOUNTER 2024-04-01 14:58 | Outpatient (AMB) | payer OTHER, SELFPAY ==
--- NOTE | 2024-04-01 15:13 | MHC.PC.OV ---
Vital Signs 04/01/24 15:15 Height 5 ft 3 in Weight 167 lb BMI 29.6 BP 122/70 Blood Pressure Location Lt brachial Position Sitting Intake Visit Reasons: insomnia, anemia Intake Note: Patient here for a follow up insomnia, anemia Combiner Required: Yes Combiner Language: Founder And Chief Technical Officer Name: Jocy Lino MD Information Interpreted: non-clinical & clinical Accompanied by: LABORER SYRUP MACHINE Allergies No Known Allergies Allergy (Verified 04/01/24 15:43) Medication List - Last Reconciled 04/01/24 by Jocy Lino MD alendronate 70 mg PO QWEEK 90 days aspirin 81 mg PO DAILY 90 days atorvastatin 40 mg PO BEDTIME 90 days cane As directed cholecalciferol (vitamin D3) 50 mcg PO DAILY 90 days clobetasol 0.05% 1 appl topical BID 2 weeks disposable gloves As directed docusate calcium 240 mg PO BID PRN 90 days escitalopram oxalate 10 mg PO DAILY 90 days esomeprazole magnesium (Nexium) 20 mg PO DAILY ferrous sulfate 325 mg PO DAILY 90 days folic acid 1 mg PO DAILY 90 days incontinence pad, liner, disp (Affirm Pads) As directed levothyroxine 88 mcg PO DAILY 90 days lidocaine 4% (Aspercreme (lidocaine)) 3 patches topical DAILY PRN lisinopril 40 mg PO DAILY 90 days [mattress topper As directed] quetiapine 200 mg PO TID 30 days tobramycin 0.3% 1 drp ophthalmic (eye) Q4H 5 days tramadol 50 mg PO BID PRN 30 days underpads (Certainty Underpads) As directed [walker As directed] [wipes As directed] zolpidem ER 12.5 mg PO DAILY 30 days Tobacco use date assessed: 04/01/24 Fall risk assessment: No Falls in past year Last assessed Fall Risk: 04/01/24 Dental Screening Dental Screen Date: 04/01/24 Did you have a dental visit in the last 12 months?: Yes Did you have a dental problem in the last 6 months where you did not have access to dental care?: No Was dental information given to patient?: Patient has dentist HPI HPI Comments History of Present Illness Details The patient is a 79-year-old female presenting with left leg pain and swelling. The symptoms started recently and have been accompanied by warmth. The patient is concerned about a possible thrombus. Recently, she has had difficulty with managing insomnia despite using zolpidem 12.5 mg, which sometimes exacerbates her symptoms. The patient has a history of essential hypertension, currently managed with lisinopril 40 mg. She also takes atorvastatin 40 mg for hyperlipidemia and levothyroxine 88 mcg for hypothyroidism. She has been diagnosed with osteoporosis, discovered after a bone density scan last year, for which she takes alendronate 70 mg weekly. Additionally, she experiences gastroesophageal reflux disease and occasional constipation for which prophylactic measures and pantoprazole have been prescribed. She reports ongoing depression for which she currently takes escitalopram 10 mg. [facility] Medical History (Updated 04/01/24 @ 15:51 by Jocy Lino MD) Depression HTN (hypertension) Hypovitaminosis D B12 deficiency Insomnia due to mental condition CLAYTON (generalized anxiety disorder) Moderate recurrent major depression Dyslipidemia GERD (gastroesophageal reflux disease) VERA (acute kidney injury) Urge urinary incontinence Chronic fatigue Osteopenia Long-term use of aspirin therapy Surgical History History of cervical biopsy History of tubal ligation History of appendectomy Family History Father CVD (cardiovascular disease) Mother Chronic mental illness Brother Lung cancer Family/Other FH: mental illness Social History Housing: House Are you a primary healthcare social worker to a significant other at home: No Do you presently have visiting nurse or other home services: Yes ([employer]) Alcohol intake: never Patient Tobacco Use Status: Current everyday Tobacco user Tobacco use type: Cigarette Cigarettes Per Day: 4 Years Smoked: 55 e-Cigarette/Vaping Use: Never Used Second Hand Smoke Exposure: No Advance Directives Date on File: 10/12/11 service: No Current occupational status: disabled Cognitive needs: Yes Hearing needs: No Vision needs: Yes Female Reproductive History Menstrual Age of Menarche: 17 Questionnaire PHQ-9 Over the last 2 weeks, how often have you been bothered by any of the following problems? 1. Little interest or pleasure in doing things: not at all 2. Feeling down, depressed, or hopeless: several days 3. Trouble falling or staying asleep, or sleeping too much: not at all 4. Feeling tired or having little energy: not at all 5. Poor appetite or overeating: not at all 6. Feeling bad about yourself - or that you are a failure or have let yourself or your family down: not at all 7. Trouble concentrating on things, such as reading the newspaper or watching television: not at all 8. Moving or speaking so slowly that other people could have noticed. Or the opposite - being so fidgety or restless that you have been moving around a lot more than usual: not at all 9. Thoughts that you would be better off or of hurting yourself in some way: not at all Total score: 1 Depression Screening Interpretation: Positive Depression Screening Follow-up: Existing condition, In treatment and Follow-up Visit Requested Depression Screening Done: Yes 50841 - PHQ-9 Billing: Yes Source: Developed by Drs. Flash Hackett, Iraida Dang, Osmani Weaver and colleagues, with an educational yordan from [employer]. Thrive Questionnaire Date Thrive assessed: 04/01/24 I am a: Patient What is your living situation today?: I have a steady place to live Within the past 12 months, did the food you bought not last and you didn't have the money to get more?: Never true Within the past 12 months, did you worry whether your food would run out before you got money to buy more?: Never true Do you have trouble paying for medicines?: No Do you have trouble getting transportation to medical appointments?: No Do you have trouble paying your heating and electricity bill?: No Do you have trouble taking care of your child, family member or friend?: No Do you have trouble with day-to-day activities such as bathing, preparing meals, shopping, managing finances, etc.?: No Are you currently unemployed and looking for a job?: No Are you interested in more education?: No Please select the resources that you would like help with: None Currently or been in a relationship where the following occur: No concerns reported THRIVE Score: 0 AUDIT C Alcohol Use Questionnaire (AUDIT-C) 1. How often do you have a drink containing alcohol?: Never Total Score: 0 CLAYTON-7 AMB Questionnaire CLAYTON-7 Date CLAYTON - 7 assessed: 04/01/24 Feeling nervous, anxious, or on edge: 1 = Several days Not being able to stop or control worryin = Not at all Worrying too much about different things: 0 = Not at all Trouble relaxin = Not at all Being so restless that it is hard to sit still: 0 = Not at all Becoming easily annoyed or irritable: 0 = Not at all Feeling afraid as if something awful might happen: 0 = Not at all Total CLAYTON-7 score (0-4 normal; 5-9 mild; 10-14 moderate; 15-21 severe): 1 Source: Developed by Drs. Flash Hackett, Iraida Dang, Osmani Weaver and colleagues, with an educational yordan from [employer]. CLAYTON-7 Assessment Billing CLAYTON-7 Assessment Tool: CLAYTON-7 Assessment 01583 Review of Systems Const All systems reviewed & are unremarkable except as noted in HPI and below Card Denies chest pain at rest, Denies chest pain with activity, Denies edema, Denies irregular heart rhythm, Denies claudication, Denies dyspnea, Denies dyspnea on exertion, Denies orthopnea, Denies paroxysmal nocturnal dyspnea and Denies slow heart rate Resp Denies cough, Denies dyspnea and Denies dyspnea on exertion Physical exam (Primary Care) Vital Signs: Last Vital Signs BP 122/70 04/01/24 15:15 BMI result Body Mass Index 29.6 Tobacco/Smoking Status: Tobacco use Status Tobacco use date assessed 04/01/24 04/01/24 15:20 Patient Tobacco Use Status Current everyday Tobacco 04/01/24 15:17 Tobacco use type Cigarette 04/01/24 15:17 e-Cigarette/Vaping Use Never Used 04/01/24 15:17 PHQ-9: PHQ-9 Score PHQ-9: Total score 1 04/01/24 15:44 Depression Screening Interpretation: Positive Depression Screening Follow-up: Existing condition, In treatment and Follow-up Visit Requested Thrive Assessment: Date of Thrive Assessment Date Thrive assessed 04/01/24 04/01/24 15:17 Currently or been in a relationship where the following occur: No concerns reported Resp Effort & Inspection: normal respiratory effort Auscultation: clear to auscultation bilaterally Cardio Jugular venous distension: no JVD Rate: regular rate Rhythm: regular rhythm Heart sounds: S1 normal heart sound present and S2 normal heart sound present Extrem General: Yes full ROM Office Procedures Flu Questionnaire Does the patient have a severe egg allergy?: No Immunizations Fluarix Triv [id number] (PF) 45 mcg (15 mcg x 3)/0.5 mL IM syringe Performing Provider: Jocy Lino MD [facility] Documented (not given) by: CARLITA Hankins on 04/01/24 15:20 Reason Not Given: Received Previously Coding Level of Care Code Est Pt Level 4 (36816) Complex EM visit Add On G2211 Diagnoses Left leg pain M79.605 Pure hypercholesterolemia E78.00 Hypothyroidism, unspecified type E03.9 Hypothyroidism type: unspecified HTN (hypertension), benign I10 Gastroesophageal reflux disease, unspecified whether esophagitis present K21.9 Esophagitis presence: esophagitis presence not specified Moderate recurrent major depression F33.1 Insomnia due to mental condition F51.05 Additional Codes CLAYTON-7 Assessment Billing - CLAYTON-7 Assessment Tool: CLAYTON-7 Assessment 68806 ([id number]) PHQ-9 - 66517 - PHQ-9 Billing: Yes ([id number]) Time Spent (min) 22 Assessment & Plan Assessment & Plan (1) Left leg pain: Code(s): M79.605 - Pain in left leg Category: Medical (2) Pure hypercholesterolemia: Code(s): E78.00 - Pure hypercholesterolemia, unspecified Category: Medical (3) Hypothyroid: Code(s): E03.9 - Hypothyroidism, unspecified Category: Medical Qualifiers: Hypothyroidism type: unspecified Qualified Code(s): E03.9 - Hypothyroidism, unspecified (4) HTN (hypertension), benign: Code(s): I10 - Essential (primary) hypertension Category: Medical (5) GERD (gastroesophageal reflux disease): Code(s): K21.9 - Gastro-esophageal reflux disease without esophagitis Category: Medical Qualifiers: Esophagitis presence: esophagitis presence not specified Qualified Code(s): K21.9 - Gastro-esophageal reflux disease without esophagitis (6) Moderate recurrent major depression: Code(s): F33.1 - Major depressive disorder, recurrent, moderate Category: Medical (7) Insomnia due to mental condition: Code(s): F51.05 - Insomnia due to other mental disorder Category: Medical Plan - Order ultrasonography of the left leg to assess for possible deep vein thrombosis. - Follow-up on thyroid function, cholesterol levels, and complete blood count to monitor chronic conditions and assess for anemia. - Adjust insomnia medication as needed, consider alternative therapies if zolpidem proves inadequate. - Schedule routine follow-up to evaluate the management of hypertension, hyperlipidemia, osteoporosis, and GERD. Patient was informed and verbally consented to the use of an ambient scribe for clinic note documentation during this visit. I discussed the concern for possible deep vein thrombosis due to the patient's symptoms of leg swelling and warmth and recommended a diagnostic ultrasound. I advised managing GERD with pantoprazole and potential lifestyle modifications. For insomnia, we reviewed the patient's current regimen of zolpidem and discussed potential adjustments. I ensured the patient understood the importance of monitoring her chronic conditions with regular lab tests and medication adjustments. We also discussed the follow-up plan, including future laboratory assessments and potential need for further intervention depending on the results of the ultrasound. Orders: Orders Complete Blood Count Auto Diff Today D64.9 - Anemia, unspecified IRON PROFILE Today D64.9 - Anemia, unspecified Vitamin D 25-OH Total Today E55.9 - Vitamin D deficiency, unspecified Influenza [id number] Immunization Today Z23 - Encounter for immunization US venous duplex LE LT Today M79.605 - Pain in left leg Lipid Panel Today E78.5 - Hyperlipidemia, unspecified Comprehensive [place]. Panel Fast Today E78.00 - Pure hypercholesterolemia, unspecified Thyroid Stimulating Hormone Today E03.9 - Hypothyroidism, unspecified Medications: Changed From escitalopram oxalate 10 mg PO DAILY 90 days 90 tabs 0RF To escitalopram oxalate 10 mg PO BEDTIME 90 tabs 1RF 90 days Patient Instructions: - Attend scheduled ultrasound to check for possible DVT. - Continue current medications as directed, unless informed otherwise. - Have blood work done including thyroid and cholesterol levels as discussed. - Monitor leg symptoms and seek immediate care if swelling, severe pain, or discoloration occurs. - Follow dietary recommendations for GERD management and take medications as instructed. - Follow up in clinic after the test results for further management.
[2024-04-01 15:15] VITALS: BP 122/70; BMI 29.6
== END 2024-04-01 16:04 | disposition home or self-care (01) ==
PROVIDERS: PCP Internal Medicine; Visit Provider Internal Medicine
DX: M79.605 Pain in left leg (principal); F33.1 Major depressive disorder, recurrent, moderate; E78.00 Pure hypercholesterolemia, unspecified; E03.9 Hypothyroidism, unspecified; I10 Essential (primary) hypertension; K21.9 Gastro-esophageal reflux disease without esophagitis; F51.05 Insomnia due to other mental disorder; Z23 Encounter for immunization

== ENCOUNTER 2024-04-01 16:19 | Outpatient (REF) | payer OTHER, SELFPAY ==
--- NOTE | ~2024-04-01 | US_ITS ---
EXAMINATION: US TRIPLEX LOWER EXTREMITY, LEFT CLINICAL INFORMATION: Left leg pain. COMPARISON: None available. TECHNIQUE: Color-flow triplex imaging with spectral analysis and compression Doppler were performed on the left lower extremity. FINDINGS: Respiratory variation, normal compression and augmented flow are noted throughout the left lower extremity. The visualized common femoral vein, superficial femoral vein, profunda femoral vein, popliteal vein and midcalf peroneal and posterior tibial venous segments show no evidence of deep venous thrombosis. There is no Ayala's cyst. US/US venous duplex LE LT IMPRESSION: No evidence of deep venous thrombosis involving the left lower extremity. Electronically signed by: Thad Rothman MD 04/02/2024 07:26 AM EST
== END 2024-04-01 16:20 | disposition home or self-care (01) ==
LOC: HO.US 16:19
PROVIDERS: PCP Internal Medicine; Visit Provider Internal Medicine
DX: M79.605 Pain in left leg (principal); E78.00 Pure hypercholesterolemia, unspecified; E03.9 Hypothyroidism, unspecified; I10 Essential (primary) hypertension; K21.9 Gastro-esophageal reflux disease without esophagitis; F51.05 Insomnia due to other mental disorder; F33.1 Major depressive disorder, recurrent, moderate; Z79.899 Other long term (current) drug therapy
CPT/HCPCS: 93971; 96127; 99212

== ENCOUNTER → 2024-04-01 16:25 | Outpatient (BNV) | payer OTHER, SELFPAY | PROVIDERS: PCP Internal Medicine; Visit Provider Radiology Diagnostic Radiology | DX: M79.605 Pain in left leg (principal) | CPT/HCPCS: 93971 ==

== ENCOUNTER 2024-08-20 14:52 | Emergency (ER) | payer OTHER, SELFPAY ==
--- NOTE | ~2024-08-20 | XR_ITS ---
CLINICAL HISTORY: pain --- Additional Notes or Special Instructions: constipation 1 view abdomen Comparison: None Findings: Nonobstructive bowel gas pattern. Moderate colonic stool. Dilated colonic loop in right mid to lower abdomen. Surgical clips in right lower quadrant. Degenerative changes of lumbar spine and bilateral hips. IMPRESSION: Nonobstructive bowel gas pattern. Moderate colonic stool. This document has been electronically signed by: Key Montiel MD on 08/20/2024 19:39:36
[2024-08-20 14:54] VITALS: BP 117/81; PULSE 76; RESP 16; TEMP 36.1; O2SAT 100; BMI 29.1
--- NOTE | 2024-08-20 14:59 | ED_ITS ---
HPI - Dizziness General Chief Complaint: Neuro Symptoms/Deficit Stated Complaint: Weak Dizzy Lightheaded Time Seen by Provider: 08/20/24 18:03 Source: patient Limitations: language barrier History of Present Illness ED Provider: Kimberly Sánchez PA-C HPI Narrative: 79-year-old female with a history of asthma, hyperlipidemia, hypothyroidism, hypertension, anxiety and depression, GERD who presents with weakness and lightheadedness x2 days. Patient states she has been weak with generalized malaise over the past 2 days, associated poor oral intake. Associated generalized abdominal discomfort with nausea. Patient states she feels bloated but not distended, she does not have regular bowel movements. She is passing flatus from below. Denies fever, cough or cold symptoms, vomiting , diarrhea. Denies headache, that position changes create her lightheadedness/dizziness, movement of her eyes does not trigger symptoms. Patient denies history of vertigo. Denies chest pain, palpitations or shortness of breath. Related Data Previous Rx's ?Medication ?Instructions ?Recorded cane #1 ea 07/13/22 ferrous sulfate 325 mg (65 mg 325 mg PO DAILY 90 days #90 tabs 10/29/22 iron) tablet docusate calcium 240 mg capsule 240 mg PO BID PRN constipation 90 11/01/22 days #180 caps folic acid 1 mg tablet 1 mg PO DAILY 90 days #90 tabs 11/01/22 mattress topper #1 ea 11/05/22 clobetasol 0.05 % topical cream 1 appl topical BID 2 weeks #45 05/23/23 grams disposable gloves #100 ea 08/10/23 incontinence pad, liner, disp #60 ea 08/10/23 (Affirm Pads) underpads 30 X 36 (Certainty #40 ea 08/10/23 Underpads) walker #1 ea 08/10/23 wipes #120 ea 08/10/23 cholecalciferol (vitamin D3) 50 50 mcg PO DAILY 90 days #90 caps 09/19/23 mcg (2,000 unit) capsule lidocaine 4 % topical patch 3 patch topical DAILY PRN pain #30 11/07/23 (Aspercreme (lidocaine)) ea tobramycin 0.3 % eye drops 1 drp ophthalmic (eye) Q4H 5 days 11/07/23 #5 mL lisinopril 40 mg tablet 40 mg PO DAILY 90 days #90 tabs 12/06/24 escitalopram oxalate 10 mg tablet 10 mg PO BEDTIME 90 days #90 tabs 04/01/24 nebulizers (AeroEclipse II #1 ea 04/28/24 Nebulizer) aspirin 81 mg tablet,delayed 81 mg PO DAILY cad prophylaxis 90 05/15/24 release days #90 tabs levothyroxine 88 mcg tablet 88 mcg PO DAILY 90 days #90 tabs 06/05/24 atorvastatin 40 mg tablet 40 mg PO BEDTIME 90 days #90 tabs 06/20/24 esomeprazole magnesium 20 mg 20 mg PO DAILY #90 caps 07/28/24 capsule,delayed release (Nexium) quetiapine 200 mg tablet 200 mg PO TID 30 days #90 tabs 08/05/24 alendronate 70 mg tablet 70 mg PO QWEEK 90 days #13 tabs 08/09/24 zolpidem 12.5 mg tablet,extended 12.5 mg PO DAILY 30 days #30 tabs 08/13/24 release,multiphase tramadol 50 mg tablet 50 mg PO BID PRN pain 30 days #60 08/31/24 tabs Allergies Allergy/AdvReac Type Severity Reaction Status Date / Time No Known Allergies Allergy Verified 08/20/24 14:55 Review of Systems 2 Review of Systems: Yes all other systems are reviewed and are negative Constitutional: Constitutional: Reports fatigue, Denies fever(s), Denies headache(s) and Reports malaise Eyes: Eyes: Denies change in vision ENT: Denies vertigo, Reports dizziness and Denies headache(s) Cardiovascular: Cardiovascular: Denies chest pain, Denies palpitations and Denies dyspnea Respiratory: Respiratory: Denies cough and Denies dyspnea Gastrointestinal: Gastrointestinal: Reports abdominal pain, Reports constipation, Denies diarrhea, Reports nausea and Denies vomiting Musculoskeletal: Musculoskeletal: Denies back pain Neurologic: Denies vertigo, Reports dizziness and Denies headache(s) Endocrine: Endocrine: Reports fatigue and Denies palpitations PMFSH Past Medical History Attestation statement: The following information was validated with the patient. Medical History Depression HTN (hypertension) Hypovitaminosis D B12 deficiency Insomnia due to mental condition CLAYTON (generalized anxiety disorder) Moderate recurrent major depression Dyslipidemia GERD (gastroesophageal reflux disease) VERA (acute kidney injury) Urge urinary incontinence Chronic fatigue Osteopenia Long-term use of aspirin therapy Surgical History History of cervical biopsy History of tubal ligation History of appendectomy Family History Family History Father CVD (cardiovascular disease) Mother Chronic mental illness Brother Lung cancer Family/Other FH: mental illness Social History Social History Housing: House Are you a primary intensive care unit nurse to a significant other at home: No Do you presently have visiting nurse or other home services: Yes ([employer]) Alcohol intake: never Patient Tobacco Use Status: Current everyday Tobacco user Tobacco use type: Cigarette Cigarettes Per Day: 4 Years Smoked: 55 e-Cigarette/Vaping Use: Never Used Second Hand Smoke Exposure: No Advance Directives Date on File: 10/12/11 service: No Current occupational status: disabled Cognitive needs: Yes Hearing needs: No Vision needs: Yes Physical Exam 2 Vital Signs: Vital Signs: Last Vital Signs Temp 97.2 F 08/20/24 21:43 Pulse 60 08/20/24 21:49 Resp 18 08/20/24 21:49 BP 139/71 08/20/24 21:49 Pulse Ox 97 08/20/24 21:49 O2 Del Method Room Air 08/20/24 21:49 BMI result Body Mass Index 29.1 Const: Other: Alert, well-appearing Orientation/consciousness: patient oriented x3 Resp: Effort & Inspection: normal respiratory effort Cardio: Other: Normal peripheral perfusion Skin: Other: Warm dry no rash Neuro: Other: Romberg negative no ataxia General: patient oriented x3, gait normal, no focal motor deficits and CN's II-XI intact bilaterally Psych: Other: Cooperative Course Course Course Narrative: This is a Rapid Medical Examination (RME) performed by Rosa Isela Rivas PA-C in triage. Full HPI, ROS, assessment and treatment plan per primary provider in the Main ED. Hx: 79 yo F here w/ grandson for eval of generalized weakness, lightheadedness, dizziness and feeling heavy x2 days. reports speech issues which began yesterday, worsening today. reports gait feels unsteady. no recent falls/ head trauma. PE/vitals: AOX3. NIH 0. no slurred speech or facial droop. slow to respond to questions. normal finger to nose. ambulating w/ slow but steady gait. perrla. Plan: labs, ekg, UA will defer imaging to primary provider Reevaluation(s) Reevaluation #1: Repeat labs, the patient feels well she is asymptomatic she is eager for discharge. I did relay that her kidney function is not completely at her baseline, I suggested that they follow up with the primary care for repeat lab studies to be sure that her kidney function is completely normalizing Time: 21:36 Medications Administered Discontinued Medications Generic Name Dose Route Start Last Admin Trade Name Freq PRN Reason Stop Dose Admin Sodium Chloride 1,000 mls @ 999 mls/hr 08/20/24 18:15 08/20/24 19:27 Ns IV 08/20/24 19:15 Infused .Q1H1M GUERDA Infusion Sodium Chloride 1,000 mls @ 999 mls/hr 08/20/24 19:15 08/20/24 20:03 Ns IV 08/20/24 20:15 Infused .Q1H1M GUERDA Infusion Ondansetron HCl 4 mg 08/20/24 18:22 08/20/24 18:24 Ondansetron Hcl 4 Mg/2 Ml Vial IVPUSH 08/20/24 18:23 4 mg ONCE ONE Administration Sodium Zirconium Cyclosilicate 10 gm 08/20/24 18:05 08/20/24 18:20 Sodium Zirconium Cyclosilicate 10 Gm Powd.Pack PO 08/20/24 18:06 10 gm ONCE ONE Administration Medical Decision Making Medical Decision Making MDM Narrative: 79-year-old female with a history of asthma, hyperlipidemia, hypothyroidism, hypertension, anxiety and depression, GERD who presents with weakness and lightheadedness x2 days. Patient states she has been weak with generalized malaise over the past 2 days, associated poor oral intake. Associated generalized abdominal discomfort with nausea. Patient states she feels bloated but not distended, she does not have regular bowel movements. She is passing flatus from below. Denies fever, cough or cold symptoms, vomiting , diarrhea. Denies headache, that position changes create her lightheadedness/dizziness, movement of her eyes does not trigger symptoms. Patient denies history of vertigo. Denies chest pain, palpitations or shortness of breath. Problem: Age, anxiety History: Per patient I have considered the following differential diagnoses: New arrhythmia, dehydration, anemia, electrolyte abnormality, viral syndrome, constipation, bowel obstruction, UTI, ACS, vertigo, orthostasis, posterior circulation CVA Plan: Patient here with a very vague symptoms with the weakness and malaise. Basic screening labs were obtained, she is dry, we will obtain orthostatic vitals and give IV fluid therapy. Her potassium is subtly elevated we will give Lokelma. In regard to the constipation, she does not have overt obstructive symptoms, we will obtain a KUB. Thought about ACS, an EKG and troponin were obtained, however the patient is not having any chest pain or shortness of breath. Thought about posterior circulation CVA versus vertigo, her exam was not consistent with vertigo, it is also not consistent with a posterior circulation CVA, there was no objective ataxia, I do not feel she warrants a workup for stroke at this time. I have independently reviewed the following tests: Labs: No leukocytosis, not anemic, creatinine 2.09, repeat creatinine 1.7, potassium subtly elevated at 5.2, repeat potassium 4.8, viral panel negative, urine negative for infection, trop < 2.7 EKG: Normal sinus rhythm, rate of 70, no ischemic changes no ectopy when compared to prior study QTC 410 KUB:Findings: Nonobstructive bowel gas pattern. Moderate colonic stool. Dilated colonic loop in right mid to lower abdomen. Surgical clips in right lower quadrant. Degenerative changes of lumbar spine and bilateral hips. IMPRESSION: Nonobstructive bowel gas pattern. Moderate colonic stool. Lab Data 08/20/24 15:46 08/20/24 20:19 Labs: Lab Results 08/20/24 08/20/24 08/20/24 Range/Units 15:46 15:49 20:19 WBC 7.3 (4.8-10.8) X10*3/uL RBC 3.53 L (4.20-5.50) X10*6/uL Hgb 11.0 L (12.0-16.0) g/dl Hct 32.2 L (37.0-47.0) % MCV 91.2 (80.0-98.0) fL MCH 31.2 (27.0-33.0) pg MCHC 34.2 (31.0-35.0) g/dl RDW 13.4 (11.0-16.0) % Plt Count 212 (160-400) X10*3/uL MPV 9.7 (9.4-12.3) fL Immature Gran % (Auto) 0.4 (0.0-0.4) % Neut % (Auto) 64.5 (45-73) % Lymph % (Auto) 25.9 (20-40) % [place] % (Auto) 6.3 (2-11) % Eos % (Auto) 2.3 (0-4) % Baso % (Auto) 0.6 (0-2) % Lymph # (Auto) 1.9 (1.2-4.9) X10*3/uL [place] # (Auto) 0.5 (0.1-1.2) X10*3/uL Eos # (Auto) 0.2 (0.0-0.4) X10*3/uL Baso # (Auto) 0.0 (0.0-0.2) X10*3/uL Abs Immat Gran (auto) 0.03 (0.00-0.03) X10*3/uL Absolute Neuts (auto) 4.7 (2.0-8.3) x10*3/uL Absolute Nucleated RBC 0.000 (0.0-0.012) X10*3/uL Nucleated RBC % (auto) 0.0 (0.0-0.2) /100WBC Sodium 133 L 138 (135-145) mmol/L Potassium 5.2 H D 4.8 (3.3-5.1) mmol/L Chloride 104 111 H (96-108) mmol/L Carbon Dioxide 23 21 L (22-29) mmol/L Anion Gap 11 L 11 L (12-20) BUN 61 H 54 H (9-16) mg/dL Creatinine 2.09 H 1.70 H (0.5-1.4) mg/dL Estim Creat Clear Calc 21.4 26.4 Estimated GFR 23 29 Random Glucose 278 H 165 H (60-115) mg/dL Calcium 8.8 D 8.1 L D (8.4-10.2) mg/dL Magnesium 2.9 H (1.6-2.6) mg/dL Total Bilirubin 0.2 (0.0-1.0) mg/dL AST 30 (5-31) U/L ALT 37 H (0-31) U/L Alkaline Phosphatase 77 (39-117) U/L Troponin I High Sens < 2.7 (<3.5-17.0) ng/L Total Protein 7.0 (6.5-8.0) g/dL Albumin 4.1 (3.5-5.0) g/dL TSH 6.06 H (0.32-4.0) uIU/mL Free T4 0.77 (0.71-1.85) ng/dL Urine Color Yellow Urine Appearance Clear Urine pH 5.5 (5.0-9.0) Ur Specific [place] 1.015 (1.005-1.025) Urine Protein Negative (Neg-Trace) mg/dL Urine Glucose (UA) Negative (Negative) mg/dL Urine Ketones Negative (Negative) mg/dL Urine Blood Negative (Negative) Urine Nitrite Negative (Negative) Ur Leukocyte Esterase Negative (Negative) Influenza Type A (PCR) NEGATIVE (Negative) Influenza Type B (PCR) NEGATIVE (Negative) RSV RNA Qual (PCR) NEGATIVE (Negative) SARS-CoV-2 RNA (RT-PCR) NEGATIVE (Negative) Discharge Plan Discharge Clinical Impression: Dehydration Patient Disposition: Home, Self-Care Instructions: Dehydration (ED) Additional Instructions: You were clinically dehydrated, your kidney function was elevated. Your kidney function did improve after IV fluid hydration. It is still not at your baseline function. You need to follow up with primary care for repeat lab studies. Call tomorrow to make an appointment. You were also found to be constipated. See home care instructions. Continue to use the docusate that you have at home twice a day. In addition, use [id number] MiraLax, 3 to 4 times a day, until you begin having multiple large volume bowel movements. Prescriptions: No Action (DME) cane Device See Rx Instructions .Route Qty: 1 0RF Rx Instructions: As directed ferrous sulfate 325 mg (65 mg iron) tablet 325 mg PO DAILY 90 Days Qty: 90 0RF (DME) mattress topper See Rx Instructions .Route .MEDSUPPLY Qty: 1 0RF Rx Instructions: As directed (DME) wipes See Rx Instructions .Route .MEDSUPPLY Qty: 120 11RF Rx Instructions: As directed (DME) underpads [Certainty Underpads] 30 X 36 pad See Rx Instructions .ROUTE .MEDSUPPLY Qty: 40 11RF Rx Instructions: As directed (DME) Affirm Pads Pad See Rx Instructions .ROUTE .MEDSUPPLY Qty: 60 11RF Rx Instructions: As directed (DME) disposable gloves Misc See Rx Instructions .ROUTE .MEDSUPPLY Qty: 100 11RF Rx Instructions: As directed (DME) walker See Rx Instructions .Route .MEDSUPPLY Qty: 1 0RF Rx Instructions: As directed cholecalciferol (vitamin D3) 50 mcg (2,000 unit) capsule 50 mcg PO DAILY 90 Days Qty: 90 1RF lisinopril 40 mg tablet 40 mg PO DAILY 90 Days Qty: 90 3RF (DME) nebulizers [AeroEclipse II Nebulizer] Mis See Rx Instructions .Route Qty: 1 0RF Rx Instructions: As directed aspirin 81 mg tablet,delayed release (DR/EC) 81 mg PO DAILY 90 Days Qty: 90 1RF levothyroxine 88 mcg tablet 88 mcg PO DAILY 90 Days Qty: 90 1RF atorvastatin 40 mg tablet 40 mg PO BEDTIME 90 Days Qty: 90 0RF esomeprazole magnesium [Nexium] 20 mg capsule,delayed release(DR/EC) 20 mg PO DAILY Qty: 90 1RF quetiapine 200 mg tablet 200 mg PO TID 30 Days Qty: 90 1RF alendronate 70 mg tablet 70 mg PO QWEEK 90 Days Qty: 13 4RF zolpidem 12.5 mg tablet,ext release multiphase 12.5 mg PO DAILY 30 Days Qty: 30 0RF tramadol 50 mg tablet 50 mg PO BID PRN (Reason: pain) 30 Days Qty: 60 0RF docusate calcium 240 mg capsule 240 mg PO BID PRN (Reason: constipation) 90 Days Qty: 180 0RF folic acid 1 mg tablet 1 mg PO DAILY 90 Days Qty: 90 1RF lidocaine [Aspercreme (lidocaine)] 4 % adhesive patch,medicated 3 patch topical DAILY PRN (Reason: pain) Qty: 30 3RF tobramycin 0.3 % drops 1 drp ophthalmic (eye) Q4H 5 Days Qty: 5 0RF clobetasol 0.05 % cream 1 appl topical BID 14 Days Qty: 45 1RF Rx Instructions: Then maintenance therapy for 2-3 times per week escitalopram oxalate 10 mg tablet 10 mg PO BEDTIME 90 Days Qty: 90 1RF Interventions: ED Discharge Assessment Last Done: 08/20/24 21:43 Discharge Date/Time: 08/20/24 21:55 Print Language: Azeri
--- NOTE | 2024-08-20 15:00 | ECG_ITS ---
Test Reason : WEAKNESS Blood Pressure : */* mmHG Vent. Rate : 70 BPM Atrial Rate : 70 BPM P-R Int : 188 ms QRS Dur : 94 ms QT Int : 380 ms P-R-T Axes : 40 16 51 degrees QTcB Int : 410 ms Normal sinus rhythm Inferior infarct , age undetermined Abnormal ECG When compared with ECG of 05-Jul-2022 18:48, No significant changes seen Referred By: Gaviota Rivas Electronically Signed By: ALANA CONNOLLY
[2024-08-20 15:49] VITALS: BP 104/63; PULSE 65; RESP 14; TEMP 36.8; O2SAT 98
[2024-08-20 15:57] LABS: MANUAL DIFF FLAG NO
[2024-08-20 15:58] LABS: Basophils Percent Auto 0.6 % (0-2); Eosinophils Absolute Auto 0.2 X10*3/uL (0.0-0.4); Eosinophils Percent Auto 2.3 % (0-4); Hematocrit 32.2 % (37.0-47.0); Imm Gran Abs Auto 0.03 X10*3/uL (0.00-0.03); Imm Gran Pct Auto 0.4 % (0.0-0.4); Lymphocytes Absolute Auto 1.9 X10*3/uL (1.2-4.9); Lymphocytes Percent Auto 25.9 % (20-40); Mean Corpuscular HGB Conc 34.2 g/dl (31.0-35.0); Mean Corpuscular Hemoglobin 31.2 pg (27.0-33.0); Mean Corpuscular Volume 91.2 fL (80.0-98.0); Mean Platelet Volume 9.7 fL (9.4-12.3); Monocytes Absolute Auto 0.5 X10*3/uL (0.1-1.2); Monocytes Percent Auto 6.3 % (2-11); Neutrophils Absolute Auto 4.7 x10*3/uL (2.0-8.3); Neutrophils Percent Auto 64.5 % (45-73); Platelet Count 212 X10*3/uL (160-400); Red Blood Count 3.53 X10*6/uL (4.20-5.50); Red Cell Distribution Width 13.4 % (11.0-16.0); White Blood Count 7.3 X10*3/uL (4.8-10.8)
[2024-08-20 15:59] LABS: Appearance Urine Clear; Color Urine Yellow; Glucose Urine UA Negative (Negative); Leukocyte Esterase Urine Negative (Negative); Nitrite Urine Negative (Negative); PH 5.5 (5.0-9.0); Specific Gravity - Urine 1.015 (1.005-1.025); Urine Blood Negative (Negative); Urine Ketones Negative (Negative); Urine Protein Negative (Neg-Trace)
[2024-08-20 16:18] LABS: Alanine Aminotransferase 37 U/L (0-31); Albumin Level 4.1 g/dL (3.5-5.0); Alkaline Phosphatase 77 U/L (39-117); Anion Gap 11 (12-20); Aspartate Amino Transferase 30 U/L (5-31); Bilirubin Total 0.2 mg/dL (0.0-1.0); Blood Urea Nitrogen 61 mg/dL (9-16); Calcium 8.8 mg/dL (8.4-10.2); Carbon Dioxide 23 mmol/L (22-29); Chloride 104 mmol/L (96-108); Creatinine Clr Calc Pharmacy 21.4; Estimated Glomerular Filt Rate 23; Glucose Random 278 mg/dL (60-115); Magnesium 2.9 mg/dL (1.6-2.6); Potassium 5.2 mmol/L (3.3-5.1); Sodium 133 mmol/L (135-145)
[2024-08-20 16:26] LABS: Troponin-I High Sensitivity < 2.7 ng/L (<3.5-17.0)
[2024-08-20 16:33] LABS: TSH reflex Free T4 6.06 uIU/mL (0.32-4.0)
[2024-08-20 16:41] LABS: Influenza A PCR NEGATIVE (Negative); Influenza B PCR NEGATIVE (Negative); Resp Syncy Virus RNA Qual PCR NEGATIVE (Negative); SARS COV2 PCR INHOUSE NEGATIVE (Negative)
[2024-08-20 17:39] LABS: Free T4 (Free Thyroxine) 0.77 ng/dL (0.71-1.85)
--- NOTE | 2024-08-20 17:54 | PC.NURSE ---
Ortho vs completed; +dizziness with position change; pt became nauseated after standing; IV access established; awaiting MD cardenas; pt SR 60-70's per tele; denies CP/SOB
[2024-08-20 17:55] VITALS: BP 105/73; BP 121/67; PULSE 64; PULSE 77
[2024-08-20 17:56] VITALS: BP 103/70; BP 121/67; PULSE 64; PULSE 78; RESP 16; TEMP 36.2; O2SAT 98
[2024-08-20] MEDS: Sodium Zirconium Cyclosilicate 10 GM POWD.PACK PO (18:20)
[2024-08-20] MEDS: 0.9 % Sodium Chloride 1,000 ML 999 ML IV ×2 (18:20→19:28)
[2024-08-20] MEDS: ondansetron HCL 4 MG/2 ML VIAL IVPUSH (18:24)
--- NOTE | 2024-08-20 20:03 | PC.NURSE ---
ambulated to BR with a steady gait
[2024-08-20 20:35] LABS: Anion Gap 11 (12-20); Blood Urea Nitrogen 54 mg/dL (9-16); Calcium 8.1 mg/dL (8.4-10.2); Carbon Dioxide 21 mmol/L (22-29); Chloride 111 mmol/L (96-108); Creatinine Clr Calc Pharmacy 26.4; Estimated Glomerular Filt Rate 29; Glucose Random 165 mg/dL (60-115); Potassium 4.8 mmol/L (3.3-5.1); Sodium 138 mmol/L (135-145)
[2024-08-20 21:43] VITALS: BP 121/67; PULSE 64; RESP 16; TEMP 36.2; O2SAT 98
[2024-08-20 21:49] VITALS: BP 139/71; PULSE 60; RESP 18; O2SAT 97
== END 2024-08-20 21:55 | disposition home or self-care (01) ==
PROVIDERS: Physician Assistant Medical; Emergency Provider Emergency Medicine; PCP Internal Medicine
DX: E86.0 Dehydration (principal); R42 Dizziness and giddiness; I10 Essential (primary) hypertension; E03.9 Hypothyroidism, unspecified; E78.5 Hyperlipidemia, unspecified; R11.0 Nausea; R10.9 Unspecified abdominal pain; Z03.818 Encounter for observation for suspected exposure to other biological agents ruled out
CPT/HCPCS: 0241U; 36415; 74018; 80048; 80053; 81003; 83735; 84439; 84443; 84484; 85025; 93005; 96361; 96374; 99285; J2405

== ENCOUNTER → 2024-08-20 15:00 | Outpatient (BNV) | payer OTHER, SELFPAY | PROVIDERS: Emergency Provider Emergency Medicine; PCP Internal Medicine; Visit Provider Internal Medicine | DX: R94.31 Abnormal electrocardiogram [ECG] [EKG] (principal); R53.1 Weakness | CPT/HCPCS: 93010 ==

== ENCOUNTER → 2024-08-20 19:06 | Outpatient (BNV) | payer OTHER, SELFPAY | PROVIDERS: PCP Internal Medicine; Visit Provider Specialist | DX: K56.41 Fecal impaction (principal) | CPT/HCPCS: 74018 ==

== ENCOUNTER 2024-10-09 08:17 | Outpatient (AMB) | payer OTHER, SELFPAY ==
[2024-10-09 08:32] VITALS: BP 122/80; BMI 29.6
--- NOTE | 2024-10-09 08:32 | MHC.PC.OV ---
Vital Signs 10/09/24 08:32 Height 5 ft 3 in Weight 167 lb BMI 29.6 BP 122/80 Blood Pressure Location Lt brachial Position Sitting Intake Visit Reasons: Annual PE Intake Note: Patient here for an annual physical exam Recreation Officer Required: No Accompanied by: Grand Child/ [employer] Allergies No Known Allergies Allergy (Verified 10/09/24 08:40) Medication List - Last Reconciled 10/09/24 by Jocy Lino MD alendronate 70 mg PO QWEEK 90 days aspirin 81 mg PO DAILY 90 days atorvastatin 40 mg PO BEDTIME 90 days cane As directed cholecalciferol (vitamin D3) 50 mcg PO DAILY 90 days clobetasol 0.05% 1 appl topical BID 2 weeks disposable gloves As directed docusate calcium 240 mg PO BID PRN 90 days escitalopram oxalate 10 mg PO BEDTIME 90 days esomeprazole magnesium (Nexium) 20 mg PO DAILY ferrous sulfate 325 mg PO DAILY 90 days folic acid 1 mg PO DAILY 90 days incontinence pad, liner, disp (Affirm Pads) As directed levothyroxine 88 mcg PO DAILY 90 days lidocaine 4% (Aspercreme (lidocaine)) 3 patches topical DAILY PRN lisinopril 40 mg PO DAILY 90 days [mattress topper As directed] nebulizers (AeroEclipse II Nebulizer) As directed quetiapine 200 mg PO TID 30 days tobramycin 0.3% 1 drp ophthalmic (eye) Q4H 5 days tramadol 50 mg PO BID PRN 30 days underpads (Certainty Underpads) As directed [walker As directed] [wipes As directed] zolpidem ER 12.5 mg PO DAILY 30 days Tobacco use date assessed: 04/01/24 Fall risk assessment: No Falls in past year Last assessed Fall Risk: 10/09/24 Dental Screening Dental Screen Date: 04/01/24 HPI HPI Comments History of Present Illness Details The patient is a 79-year-old female presenting for a physical exam and management of chronic conditions. The patient has a history of osteoporosis and is on alendronate 70 mg weekly. She denies any allergies and is currently taking aspirin 81 mg, atorvastatin 40 mg for cholesterol, vitamin D, and clobetasol cream for skin issues. She is also on escitalopram 10 mg at night for depression and insomnia, which helps with anxiety. Additionally, she takes esomeprazole for gastroesophageal reflux disease and iron supplements along with folic acid for iron deficiency anemia. The patient uses pads for urinary incontinence and is on levothyroxine 88 mcg for hypothyroidism. She also takes lisinopril 40 mg for hypertension and has been prescribed Seroquel 200 mg, tramadol, and zolpidem. She reports a burning sensation in her left leg and pain in her right leg, which started about a week ago. A duplex ultrasound was performed in March for left leg complaints, which showed no abnormalities. She experiences tingling in her legs and has not had a nerve conduction study yet. The patient has a history of cervical biopsy, tubal ligation, and appendectomy. She does not consume alcohol and smokes approximately four cigarettes a day. Her father had heart disease, and her mother had anxiety. Recent laboratory results showed an improvement in renal function with GFR increasing from 23 to 29, and blood glucose levels decreasing from 268 to 165. Thyroid function tests were normal, and levothyroxine dosage was increased to 100 mcg. - Colonoscopy performed last year - Pneumonia vaccination up to date - Tetanus vaccination due the patient declines having it today [facility] Medical History (Updated 10/09/24 @ 08:58 by Jocy Lino MD) Depression HTN (hypertension) Hypovitaminosis D B12 deficiency Insomnia due to mental condition CLAYTON (generalized anxiety disorder) Moderate recurrent major depression Dyslipidemia GERD (gastroesophageal reflux disease) VERA (acute kidney injury) Urge urinary incontinence Chronic fatigue Osteopenia Long-term use of aspirin therapy Surgical History History of cervical biopsy History of tubal ligation History of appendectomy Family History Father CVD (cardiovascular disease) Mother Chronic mental illness Brother Lung cancer Family/Other FH: mental illness Social History Housing: House Are you a primary personal caregiver to a significant other at home: No Do you presently have visiting nurse or other home services: Yes ([employer]) Alcohol intake: never Patient Tobacco Use Status: Current everyday Tobacco user Tobacco use type: Cigarette Cigarettes Per Day: 4 Years Smoked: 55 e-Cigarette/Vaping Use: Never Used Second Hand Smoke Exposure: No Advance Directives Date on File: 10/12/11 service: No Current occupational status: disabled Cognitive needs: Yes Hearing needs: No Vision needs: Yes Female Reproductive History Menstrual Age of Menarche: 17 Questionnaire PHQ-9 Over the last 2 weeks, how often have you been bothered by any of the following problems? 1. Little interest or pleasure in doing things: more than half the days 2. Feeling down, depressed, or hopeless: several days 3. Trouble falling or staying asleep, or sleeping too much: several days 4. Feeling tired or having little energy: several days 5. Poor appetite or overeating: more than half the days 6. Feeling bad about yourself - or that you are a failure or have let yourself or your family down: not at all 7. Trouble concentrating on things, such as reading the newspaper or watching television: not at all 8. Moving or speaking so slowly that other people could have noticed. Or the opposite - being so fidgety or restless that you have been moving around a lot more than usual: not at all 9. Thoughts that you would be better off or of hurting yourself in some way: not at all Total score: 7 Depression Screening Interpretation: Positive Depression Screening Follow-up: Existing condition, In treatment and Follow-up Visit Requested Depression Screening Done: Yes 45842 - PHQ-9 Billing: Yes Source: Developed by Drs. Flash Hackett, Iraida Dang, Osmani Weaver and colleagues, with an educational yordan from [employer]. Thrive Questionnaire Date Thrive assessed: 07/28/24 I am a: Patient What is your living situation today?: I have a steady place to live Within the past 12 months, did the food you bought not last and you didn't have the money to get more?: Sometimes True Within the past 12 months, did you worry whether your food would run out before you got money to buy more?: Sometimes True Do you have trouble paying for medicines?: Yes Do you have trouble getting transportation to medical appointments?: No Do you have trouble paying your heating and electricity bill?: No Do you have trouble taking care of your child, family member or friend?: No Do you have trouble with day-to-day activities such as bathing, preparing meals, shopping, managing finances, etc.?: No Are you currently unemployed and looking for a job?: No Are you interested in more education?: No Please select the resources that you would like help with: None Currently or been in a relationship where the following occur: No concerns reported THRIVE Score: 2 AUDIT C Alcohol Use Questionnaire (AUDIT-C) 1. How often do you have a drink containing alcohol?: Never Total Score: 0 Score Reviewed/Action Taken: No CLAYTON-7 AMB Questionnaire CLAYTON-7 Date CLAYTON - 7 assessed: 04/01/24 Source: Developed by Drs. Flash Hackett, Iraida Dang, Osmani Weaver and colleagues, with an educational yordan from [employer]. Review of Systems Const All systems reviewed & are unremarkable except as noted in HPI and below Card Denies chest pain at rest, Denies chest pain with activity, Denies edema, Denies irregular heart rhythm, Denies claudication, Denies dyspnea, Denies dyspnea on exertion, Denies orthopnea, Denies paroxysmal nocturnal dyspnea and Denies slow heart rate Resp Denies cough, Denies dyspnea and Denies dyspnea on exertion GI Denies abdominal pain, Denies change in bowel habits, Denies excessive flatus, Denies nausea and Denies vomiting Denies urinary incontinence, Denies urinary hesitancy and Denies urinary urgency Musc Denies atrophy, Denies deformity and Denies limited range of motion Physical exam (Primary Care) Vital Signs: Last Vital Signs BP 122/80 10/09/24 08:32 BMI result Body Mass Index 29.6 BMI Assessment/Plan discussion: High BMI High, discussed plan: lifestyle, weight reduction, dietary and physical activity Tobacco/Smoking Status: Tobacco use Status Tobacco use date assessed 04/01/24 10/09/24 08:37 Patient Tobacco Use Status Current everyday Tobacco 10/09/24 08:37 Tobacco use type Cigarette 10/09/24 08:37 e-Cigarette/Vaping Use Never Used 10/09/24 08:37 Are you ready to quit: No Tobacco cessation counseling provided: Yes Items discussed: Nicotine replacement and QuitWorks Relapse Prevention: discussed the importance of a supportive environment and discussed negative mood or depression after quitting Number of minutes spent counselin CPT code: Less than 3 minutes PHQ-9: PHQ-9 Score PHQ-9: Total score 7 10/09/24 08:37 Depression Screening Interpretation: Positive Depression Screening Follow-up: Existing condition, In treatment and Follow-up Visit Requested Thrive Assessment: Date of Thrive Assessment Date Thrive assessed 07/28/24 10/09/24 08:37 Currently or been in a relationship where the following occur: No concerns reported [facility] Head: Yes normal to inspection, Yes normocephalic and Yes atraumatic Ears: external ears normal Eyes General: appearance normal, both eyes and all related structures Eyelids: Yes eyelids normal Conjunctivae: conjunctivae normal Neck Neck: Yes normal visual inspection and Yes supple Resp Effort & Inspection: normal respiratory effort Auscultation: clear to auscultation bilaterally Cardio Jugular venous distension: no JVD Rate: regular rate Rhythm: regular rhythm Heart sounds: S1 normal heart sound present and S2 normal heart sound present GI Inspection: Yes normal to inspection Palpation (GI): Soft to palpation and nontender Auscultation: normal bowel sounds Skin General skin exam: no rashes or lesions noted Neuro General: no focal motor deficits Extrem General: Yes full ROM Psych Appearance: grossly normal Coding Level of Care Code Est Pt Level 3 (19049) Est Pt Prev Care >65y(62492) Diagnoses Physical exam Z00.00 Bilateral leg paresthesia R20.2 Moderate recurrent major depression F33.1 Venous insufficiency I87.2 Hypothyroidism, unspecified type E03.9 Hypothyroidism type: unspecified Additional Codes PHQ-9 - 60948 - PHQ-9 Billing: Yes ([id number]) Time Spent (min) 35 Assessment & Plan Assessment & Plan (1) Physical exam: Code(s): Z00.00 - Encounter for general adult medical examination without abnormal findings Category: Medical (2) Bilateral leg paresthesia: Code(s): R20.2 - Paresthesia of skin Category: Medical (3) Moderate recurrent major depression: Code(s): F33.1 - Major depressive disorder, recurrent, moderate Category: Medical (4) Venous insufficiency: Code(s): I87.2 - Venous insufficiency (chronic) (peripheral) Category: Medical (5) Hypothyroid: Code(s): E03.9 - Hypothyroidism, unspecified Category: Medical Qualifiers: Hypothyroidism type: unspecified Qualified Code(s): E03.9 - Hypothyroidism, unspecified Plan The patient will continue with her current medications for osteoporosis, depression, insomnia, GERD, iron deficiency anemia, urinary incontinence, hypothyroidism, and hypertension. Gabapentin will be initiated for neuropathic pain, starting at three times a day, with monitoring for dizziness and sedation. A nerve conduction study is recommended to further evaluate the tingling in her legs. The levothyroxine dosage has been increased to 100 mcg, and thyroid function tests will be repeated in six weeks to assess the response. The patient is advised to protect her ears from loud noises to manage tinnitus. She is encouraged to reduce smoking and consider cessation strategies. Patient was informed and verbally consented to the use of an ambient scribe for clinic note documentation during this visit. Orders: Orders US venous duplex LE RT Today M79.604 - Pain in right leg NE nerve conduction velocity Today R20.2 - Paresthesia of skin Thyroid Stimulating Hormone 6 Months E03.9 - Hypothyroidism, unspecified NE electromyogram (EMG) Today R20.2 - Paresthesia of skin Referrals Vascular Surgery Referral I87.2 - Venous insufficiency (chronic) (peripheral) Medications: New gabapentin 100 mg PO TID 90 caps 1RF 30 days
== END 2024-10-09 09:24 | disposition home or self-care (01) ==
LOC: HO.HMCH 08:18
PROVIDERS: PCP Internal Medicine; Visit Provider Internal Medicine
DX: Z00.00 Encounter for general adult medical examination without abnormal findings (principal); R20.2 Paresthesia of skin; F33.1 Major depressive disorder, recurrent, moderate; I87.2 Venous insufficiency (chronic) (peripheral); E03.9 Hypothyroidism, unspecified

== ENCOUNTER 2024-10-09 09:18 | Outpatient (REF) | payer OTHER, SELFPAY ==
--- NOTE | ~2024-10-09 | US_ITS ---
EXAMINATION: US TRIPLEX LOWER EXTREMITY, RIGHT CLINICAL INFORMATION: M79.604 - Pain in right leg COMPARISON: None available. TECHNIQUE: Color-flow triplex imaging with spectral analysis and compression Doppler were performed on the right lower extremity. FINDINGS: Respiratory variation, normal compression and augmented flow are noted throughout the right lower extremity. The visualized common femoral vein, superficial femoral vein, profunda femoral vein, popliteal vein and midcalf peroneal and posterior tibial venous segments show no evidence of deep venous thrombosis. US/US venous duplex LE RT IMPRESSION: No evidence of deep venous thrombosis involving the right lower extremity. Electronically signed by: Puma Schrader MD 10/09/2024 10:45 AM EDT
== END 2024-10-09 09:19 | disposition home or self-care (01) ==
LOC: HO.US 09:18
PROVIDERS: PCP Internal Medicine; Visit Provider Internal Medicine
DX: Z00.01 Encounter for general adult medical examination with abnormal findings (principal); M79.604 Pain in right leg; R20.2 Paresthesia of skin; F33.1 Major depressive disorder, recurrent, moderate; I87.2 Venous insufficiency (chronic) (peripheral); E03.9 Hypothyroidism, unspecified; Z79.899 Other long term (current) drug therapy; Z13.31 Encounter for screening for depression
CPT/HCPCS: 93971; 96127; 99212; 99397

== ENCOUNTER → 2024-10-09 09:22 | Outpatient (BNV) | payer OTHER, SELFPAY | PROVIDERS: PCP Internal Medicine; Visit Provider Radiology Diagnostic Radiology | DX: M79.604 Pain in right leg (principal) | CPT/HCPCS: 93971 ==

== ENCOUNTER 2024-12-02 15:38 | Outpatient (AMB) | payer OTHER, SELFPAY ==
--- NOTE | 2024-12-02 15:44 | MHC.OFFVIS ---
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 She states she has pain in her left leg, feels hot at times. At night she gets cramping in both legs. She feels pain when walking at times. Accompanied by: Grand Child Allergies No Known Allergies Allergy (Verified 12/02/24 15:46) HPI HPI EMAIL PRODUCTION SPECIALIST/PCP referral for : Details: Very pleasant 79-year-old female presents for evaluation regarding cramping of the left lower extremity. She had seen her primary care for annual surveillance concerned about arterial disease. She reported a burning sensation in her left leg and it has moved down to the right leg she has a history hypertension hyperlipidemia kidney disease. She now presents to us for vascular evaluation. She is maintained on aspirin and statin [facility] Medical History Depression HTN (hypertension) Hypovitaminosis D B12 deficiency Insomnia due to mental condition CLAYTON (generalized anxiety disorder) Moderate recurrent major depression Dyslipidemia GERD (gastroesophageal reflux disease) VERA (acute kidney injury) Urge urinary incontinence Chronic fatigue Osteopenia Long-term use of aspirin therapy Surgical History History of cervical biopsy History of tubal ligation History of appendectomy Family History Father CVD (cardiovascular disease) Mother Chronic mental illness Brother Lung cancer Family/Other FH: mental illness Social History Housing: House Are you a primary daycare manager to a significant other at home: No Do you presently have visiting nurse or other home services: Yes ([employer]) Alcohol intake: never Patient Tobacco Use Status: Current everyday Tobacco user Tobacco use type: Cigarette Cigarettes Per Day: 4 Years Smoked: 55 e-Cigarette/Vaping Use: Never Used Second Hand Smoke Exposure: No Advance Directives Date on File: 10/12/11 service: No Current occupational status: disabled Cognitive needs: Yes Hearing needs: No Vision needs: Yes Female Reproductive History Menstrual Age of Menarche: 17 Review of Systems Const All systems reviewed & are unremarkable except as noted in HPI and below Reports no additional complaints ENT Reports Normal hearing present Card Denies chest pain, Denies chest pain at rest, Denies chest pain with activity and Denies pedal edema Resp Denies cough GI Denies abdominal pain Musc Denies abnormal gait, Denies muscle cramps and Denies radiating pain into limb Skin/Breast Denies skin ulcer and Denies wounds Neuro Reports Normal hearing present and Denies abnormal gait Psych Reports no additional complaints Physical Exam Const General: cooperative, healthy appearing and comfortable Orientation/consciousness: oriented to person, oriented to place and oriented to time HEENT Head: Yes normal to inspection Neck Neck: Yes normal visual inspection Carotids: no bruits Chest Chest palpation & inspection: normal inspection of the chest Resp Effort & Inspection: normal respiratory effort and able to speak in complete sentences Auscultation: clear to auscultation bilaterally, no crackles, no rales, no rhonchi and no wheezes Cardio Other: Bilateral DP signals Rate: regular rate Rhythm: regular rhythm Heart sounds: S1 normal heart sound present and S2 normal heart sound present Bruits: no carotid bruits Peripheral pulses: Peripheral pulses 2+ throughout GI Inspection: Yes normal to inspection Skin Wounds: no wounds Hair: normal Neuro General: oriented to person, oriented to place and oriented to time Cranial nerves: Yes CN's II-XII intact bilaterally and Yes Normal hearing present Cognition (Neuro): normal cognition Motor exam (neuro): 5/5 motor strength present throughout Extrem Other: venous exam: No significant superficial varicosities or spider telangiectasias, minimal edema General: No clubbing, No cyanosis and No edema Psych Appearance: grossly normal Mental Status: mental status grossly normal Speech and movement: Normal speech and movement present Assessment & Plan Assessment & Plan (1) PAD (peripheral artery disease): Code(s): I73.9 - Peripheral vascular disease, unspecified Category: Medical Plan: In short patient has concerns of peripheral artery disease. We did discuss the pathophysiology of this and risk factor modification. We will obtain noninvasive testing and she will follow up after that. Thank you for allowing us to assist in her care. If there are any questions or concerns please do not hesitate to contact us. Orders: Orders US arterial duplex LE BI Today I73.9 - Peripheral vascular disease, unspecified Coding Level of Care Code New Pt Level 4 (54769) Diagnoses PAD (peripheral artery disease) I73.9
== END 2024-12-02 15:52 | disposition home or self-care (01) ==
LOC: HO.HVS 15:39
PROVIDERS: PCP Internal Medicine; Visit Provider Surgery Vascular Surgery
DX: I73.9 Peripheral vascular disease, unspecified (principal)
CPT/HCPCS: 99204

== ENCOUNTER → 2024-12-02 15:38 | Outpatient (BNVA) | payer OTHER, SELFPAY | PROVIDERS: PCP Internal Medicine; Visit Provider Surgery Vascular Surgery | DX: M79.605 Pain in left leg (principal); R20.2 Paresthesia of skin; I73.9 Peripheral vascular disease, unspecified | CPT/HCPCS: 99202 ==

== ENCOUNTER 2025-02-06 14:58 | Outpatient (REF) | payer OTHER, SELFPAY ==
--- NOTE | 2025-02-06 15:01 | EMG_ITS ---
Chief complaint: 80-year-old with leg pain. Reason for referral: Evaluate for neuropathy Referred by: Dr. Ernie Lino Procedure done: Bilateral lower extremity NCS/EMG Precautions and/or limitations: Poor tolerance of the test The limb temperature was monitored continuously and remained between 32-36 degrees C during the performance of the NCS. Nerve Conduction Studies Anti Sensory Summary Table ?Stim Site NR Onset (ms) Norm Onset (ms) Peak (ms) Norm Peak (ms) O-P Amp (?V) Norm O-P Amp Site1 Site2 Delta-0 (ms) Dist (cm) Fadi (m/s) Norm Fadi (m/s) Left Sural Anti Sensory (Lat Mall) Calf ? 3.3 4.0 <4.0 0.4 >5.0 Calf Lat Mall 3.3 14.0 42 Right Sural Anti Sensory (Lat Mall) Calf ? 3.2 4.1 <4.0 13.9 >5.0 Calf Lat Mall 3.2 14.0 44 Motor Summary Table ?Stim Site NR Onset (ms) Norm Onset (ms) O-P Amp (mV) Norm O-P Amp iAmp (mV) Amp (1st) (%) Site1 Site2 Delta-0 (ms) Dist (cm) Fadi (m/s) Norm Fadi (m/s) Left Peroneal Motor (Ext Dig Brev) Ankle ? 5.0 <4.0 3.5 >2.5 4.2 100.0 Ankle Ext Dig Brev 5.0 0.0 B Fib ? 11.5 2.8 3.2 80.0 B Fib Ankle 6.5 28.0 43 >40 Poplt ? 12.7 3.1 3.5 88.6 Poplt B Fib 1.2 5.0 42 >40 Right Peroneal Motor (Ext Dig Brev) Ankle ? 6.4 <4.0 0.3 >2.5 0.3 100.0 Ankle Ext Dig Brev 6.4 0.0 B Fib ? 15.4 0.9 0.8 300.0 B Fib Ankle 9.0 27.0 30 >40 Poplt ? 16.1 0.6 0.6 200.0 Poplt B Fib 0.7 6.0 86 >40 Left Tibial Motor (Abd Shultz Brev) Ankle ? 4.1 <5 5.5 >2.5 8.4 100.0 Ankle Abd Shultz Brev 4.1 0.0 Knee ? 14.5 1.9 2.8 34.5 Knee Ankle 10.4 34.0 33 >40 Right Tibial Motor (Abd Shultz Brev) Ankle ? 4.1 <5 9.0 >2.5 11.8 100.0 Ankle Abd Shultz Brev 4.1 0.0 Knee ? 12.3 2.5 4.2 27.8 Knee Ankle 8.2 32.0 39 >40 EMG ?Side Muscle Nerve Root Ins Act Fibs Psw Amp Dur Poly Recrt Int Pat Comment Right AbdHallucis MedPlantar S1-2 Nml Nml Nml Nml Nml 0 Nml Complete Right AntTibialis Dp Br Peron L4-5 Nml Nml Nml Nml Nml 0 Nml Complete Right PostTibialis Tibial L5, S1 Nml Nml Nml Nml Nml 0 Nml Complete Right MedGastroc Tibial S1-2 Nml Nml Nml Nml Nml 0 Nml Complete Right VastusMed Femoral L2-4 Nml Nml Nml Nml Nml 0 Nml Complete FINDINGS: Left peroneal nerve showed prolonged distal latency, normal amplitude and normal conduction velocity. Right peroneal nerve showed very small amplitude/almost absent, with prolonged distal latency, slow distal conduction velocity. Bilateral tibial nerves showed normal distal latencies and amplitudes, but slow conduction velocities. Left sural nerves showed small amplitudes. Right sural nerve showed prolonged peak latencies. Concentric needle EMG was performed in selected muscles of the right lower extremity only, patient was unable to tolerate the test. IMPRESSION: 1. This is incomplete but appears to be an abnormal study. 2. Findings suggestive of sensorimotor peripheral neuropathy. However, these abnormal nerve conduction results should be interpreted with caution. For example, it is common to see abnormal sural responses and slow conduction velocities with advanced age. Results are not necessarily considered abnormal without other confirmative data for peripheral neuropathy. 3. Could not completely rule out lumbar radiculopathy as patient could not fully tolerate needle EMG. Thank you for your kind referral. Apryl Bañuelos MD, RYAN Board Certified, [place] [employer] and Rehabilitation (ABPMR) Board Certified, [place] Board of Electrodiagnostic Medicine (ABEM) CODIN 08850 x 1 extremity MTDD
== END 2025-02-06 14:59 | disposition home or self-care (01) ==
LOC: HO.NEURO 14:58
PROVIDERS: PCP Internal Medicine; Visit Provider Internal Medicine
DX: R20.2 Paresthesia of skin (principal); M79.604 Pain in right leg; M79.605 Pain in left leg
CPT/HCPCS: 95886; 95909

== ENCOUNTER → 2025-02-06 15:01 | Outpatient (BNV) | payer OTHER, SELFPAY | PROVIDERS: PCP Internal Medicine; Visit Provider Physical Medicine & Rehabilitation | DX: R20.2 Paresthesia of skin (principal); R20.0 Anesthesia of skin | CPT/HCPCS: 95886; 95909 ==